=== PATIENT | female | born 1940 | race Caucasian/White ===

== ENCOUNTER 2018-08-06 12:52 | Inpatient (IN) | payer BC, MEDICARE ==
[~2018-08-06] VITALS: Ht 160 cm; Wt 54.6 kg
[2018-08-06 13:15] LABS: BASO # 0.1 x10^3/uL (0.0-0.2); BASO % 1 % (0-3); EOS # 0.2 x10^3/uL (0.0-0.7); EOS % 2 % (0-3); HEMATOCRIT 38.5 % (36.0-47.0); HEMOGLOBIN 12.6 g/dL (12.0-15.5); LYMPH # 3.8 x10^3/uL (1.0-4.8); LYMPH % 35 % (24-48); MEAN CORPUSCULAR HEMOGLOBIN 31 pg (25-35); MEAN CORPUSCULAR HGB CONC 33 g/dL (31-37); MEAN CORPUSCULAR VOLUME 94 fL (79-100); MONO # 0.9 x10^3/uL (0.0-1.1); MONO % 8 % (0-9); NEUT # 5.9 x10^3uL (1.8-7.7); NEUT % 55 % (31-73); PLATELET COUNT 236 x10^3/uL (140-400); RED BLOOD COUNT 4.08 x10^6/uL (3.50-5.40); RED CELL DISTRIBUTION WIDTH 13.7 % (11.5-14.5); WHITE BLOOD COUNT 10.8 x10^3/uL (4.0-11.0)
--- NOTE | 2018-08-06 13:17 | EKG ---
[address] [address] Test Date: 2018-08-06 Test Time: 13:14:41 Pat Name: EDILBERTO STARK Department: Room: Gender: F Trouble Locater: : 1940 Requested By: COURTNEY TRAORE Order Number: [id number] Reading MD: Jm Sebastian Measurements Intervals [place] Rate: 96 P: [place]: QRS: 72 QRSD: 86 T: 83 QT: 346 QTc: 438 Interpretive Statements SINUS RHYTHM QRS(T) CONTOUR ABNORMALITY CONSIDER ANTEROLATERAL MYOCARDIAL DAMAGE POSSIBLY ABNORMAL ECG Electronically Signed On 08-13-2018 9:58:33 [employer] by Jm Sebastian
[2018-08-06 13:30] LABS: ALBUMIN 3.6 g/dL (3.4-5.0); ALBUMIN/GLOBULIN RATIO 0.8 (1.0-1.7); CALCIUM 9.8 mg/dL (8.5-10.1); CREATININE 1.7 mg/dL (0.6-1.0); GFR 29.1; MAGNESIUM 2.3 mg/dL (1.8-2.4); POTASSIUM 4.4 mmol/L (3.5-5.1); TOTAL BILIRUBIN 0.3 mg/dL (0.2-1.0); TOTAL PROTEIN 7.9 g/dL (6.4-8.2)
[2018-08-06 13:30] LABS: BILIRUBIN,URINE NEG (NEG); CLARITY,URINE CLEAR; COLOR,URINE YELLOW; GLUCOSE,URINE NEG (NEG); NITRITE,URINE NEG (NEG); RBC,URINE 0 /HPF (0-2); UROBILINOGEN,URINE 0.2 mg/dL (0.2 mg/dL); WBC,URINE 0 /HPF (0-4)
[2018-08-06 13:31] LABS: BACTERIA,URINE 0 /HPF (0-FEW); SQUAMOUS EPITHELIAL CELL,UR OCC /LPF
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
[2018-08-06 14:33] VITALS: BP 134/84
[2018-08-06] MEDS ORDERED: ASPI-630 PO (15:51)
[2018-08-06] MEDS ORDERED: ASCO500T3 PO (15:51)
[2018-08-06 16:23] VITALS: BP 134/84
[2018-08-06] MEDS ORDERED: ORPH-16 PO (16:36)
[2018-08-06] MEDS ORDERED: QUET25TA5 PO (16:36)
[2018-08-06] MEDS ORDERED: CETI10TA22 PO (16:36)
[2018-08-06] MEDS ORDERED: OMEG1CAP38 PO (16:36)
[2018-08-06] MEDS ORDERED: GUAI600T47 PO (16:36)
[2018-08-06] MEDS ORDERED: POLY17PO5 PO (16:36)
[2018-08-06] MEDS ORDERED: CHOL10003 PO (16:36)
[2018-08-06] MEDS ORDERED: LEVO88TA4 PO (16:36)
[2018-08-06] MEDS ORDERED: TRAM50TA PO (16:36)
[2018-08-06] MEDS ORDERED: LACT1CAP19 PO (16:36)
[2018-08-06] MEDS ORDERED: FERR325T14 PO (16:36)
[2018-08-06] MEDS ORDERED: UBID100C PO (16:36)
[2018-08-06] MEDS ORDERED: MECL25TA3 PO (16:36)
[2018-08-06] MEDS ORDERED: BUSP5TAB PO (16:36)
[2018-08-06] MEDS ORDERED: FLUT12HF3 IH (16:51)
[2018-08-06] MEDS ORDERED: LITH300T3 PO (16:58)
[2018-08-06] MEDS ORDERED: IPRA30SP NS (16:58)
[2018-08-06] MEDS ORDERED: NICO1PAT25 TP (16:59)
[2018-08-06] MEDS ORDERED: traMADol 50 MG TABLET PO PRN (17:30)
[2018-08-06] MEDS ORDERED: MECLIZINE 12.5 MG TABLET. PO PRN (18:00)
[2018-08-06] MEDS ORDERED: busPIRone 5 MG TABLET. PO PRN (18:00)
[2018-08-06] MEDS ORDERED: ORPHENADRINE ER 100 MG TABLET.ER PO PRN (18:00)
[2018-08-06] MEDS ORDERED: MAG HYDROX/AL HYDROX/SIMETH 30 ML ORAL.SUSP PO PRN (18:15)
[2018-08-06] MEDS ORDERED: ACETAMINOPHEN 325 MG TABLET PO PRN (18:15)
[2018-08-06] MEDS ORDERED: MAGNESIUM HYDROXIDE 2,400 MG/30 ML ORAL.SUSP. PO PRN (18:15)
[2018-08-06] MEDS ORDERED: METHYL SALICYLATE/MENTHOL TOPICAL OINTMENT 29GM TUBE. TP PRN (18:15)
[2018-08-06] MEDS: BUDESONIDE 0.5 MG/2 ML NEBU NEB SCH (20:00)
[2018-08-06] MEDS: ALBUTEROL SULFATE 2.5 MG/3 ML NEBU. NEB SCH (20:00)
[2018-08-06] MEDS: QUEtiapine 25 MG TABLET. PO SCH ×3 (20:41→22:52)
[2018-08-06] MEDS: IPRATROPIUM BROMIDE 0.06% NASAL SPRAY 15ML BOTTLE NS SCH (20:41)
[2018-08-06] MEDS ORDERED: FLUTICASONE IH SCH (21:00)
[2018-08-06] MEDS ORDERED: SALMETEROL IH SCH (21:00)
[2018-08-07] MEDS: ALBUTEROL SULFATE 2.5 MG/3 ML NEBU. NEB SCH ×4 (05:32→20:00)
[2018-08-07 05:54] VITALS: BP 98/52
[2018-08-07] MEDS: LEVOTHYROXINE 88 MCG TABLET PO SCH ×2 (05:56→06:00)
[2018-08-07] MEDS: BUDESONIDE 0.5 MG/2 ML NEBU NEB SCH ×2 (08:00→20:00)
[2018-08-07] MEDS ORDERED: CETIRIZINE HCL 10 MG TABLET PO PRN (09:00)
[2018-08-07] MEDS ORDERED: NICOTINE 14MG PATCH. TD SCH (09:00)
[2018-08-07] MEDS: LITHIUM CARBONATE 300 MG TABLET PO SCH (10:12)
[2018-08-07] MEDS: NICOTINE 14MG PATCH. TD SCH (10:13)
[2018-08-07] MEDS: ASPIRIN 81 MG TAB.CHEW PO SCH (10:20)
[2018-08-07] MEDS: POLYETHYLENE GLYCOL 3350 17 GM PACKET. PO SCH (10:20)
[2018-08-07] MEDS: CHOLECALCIFEROL (VITAMIN D3) 1,000 UNIT TABLET PO SCH (10:20)
[2018-08-07] MEDS: LACTOBACILLUS RHAMNOSUS GG 1 CAPSULE. PO SCH (10:20)
[2018-08-07] MEDS: OMEGA-3 FATTY ACIDS/FISH OIL 1,000 MG CAPSULE. PO SCH (10:20)
[2018-08-07] MEDS: FERROUS SULFATE 325 MG TABLET. PO SCH (10:20)
[2018-08-07] MEDS: UBIDECARENONE 50 MG CAPSULE. PO SCH (10:20)
[2018-08-07] MEDS: ASCORBIC ACID 500 MG TABLET PO SCH (10:20)
[2018-08-07] MEDS: IPRATROPIUM BROMIDE 0.06% NASAL SPRAY 15ML BOTTLE NS SCH ×2 (10:20→20:37)
[2018-08-07] MEDS: GABAPENTIN 300 MG CAPSULE. PO SCH (20:36)
[2018-08-07] MEDS: QUEtiapine 25 MG TABLET. PO SCH (20:36)
[2018-08-07] MEDS: DIVALPROEX 125 MG CAP.SPRINK PO SCH (20:44)
[2018-08-07 21:00] VITALS: BP 114/57
[2018-08-07] MEDS ORDERED: DIVALPROEX SODIUM 250 MG TABLET.DR. PO SCH (21:00)
[2018-08-07] MEDS: LORazepam 0.5 MG TABLET PO PRN (22:50)
--- NOTE | 2018-08-08 01:48 | PSYEV ---
DATE OF SERVICE: 08/07/2018 PSYCHIATRIC EVALUATION REASON FOR ADMISSION: This 77-year-old female was admitted to unit 6 from home accompanied by her and son. The patient apparently is experiencing significant changes in her mental status for the past 2 weeks. The patient is also getting extremely paranoid, suspicious. She is complaining that her food is being poisoned, also religiously preoccupied, hypersexual, constantly talking, not able to follow directions, disinhibition. HISTORY OF PRESENT ILLNESS: The patient currently is not able to provide much information. Does not answer to questions. She has significant flight of ideas, racing thoughts, emotional lability and also feeling on top of the world. The patient has a long history of psychiatric illness, apparently diagnosed with bipolar disorder several years ago and apparently she had developed kidney disease being on long-term use of lithium. The patient is currently living with her , have been for almost 59 years. is concerned about her behavior change. 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 The patient apparently has been hospitalized at first time in 1993 for 2 months [facility]. At that time, she was diagnosed with bipolar disorder around age 53. The patient apparently followed with psychiatrist and stayed on the medication. The patient apparently denied of any substance abuse or alcohol. PAST MEDICAL HISTORY: The patient has a history of asthma, arthritis, chronic kidney disease stage 3, congestive heart failure, history of lung cancer, chronic back pain, COPD, hypothyroidism, osteoarthritis, fibromyalgia, history of herniated disk with a benign tumor. ALLERGIES: The patient is allergic to Haldol, ciprofloxacin, furosemide, levofloxacin, NSAIDs, Risperdal, Seldane, sulfonamides, tizanidine, prednisone and sulfamethoxazole. PSYCHOSOCIAL HISTORY: The patient is currently living with her . 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 The patient has a high school education. The patient apparently was very active like dancing, spend time with the family. The patient never had any legal problems. The patient has a daughter and grandchildren. CURRENT MEDICATIONS: Depakote 500 mg at night, gabapentin 600 mg at night, olanzapine 10 mg daily, lorazepam 0.25 mg q.i.d. p.r.n. and also olanzapine 2.5 mg q.2 hours p.r.n. The patient is also on lithium carbonate 300 mg daily, ferrous sulfate 325 mg daily, aspirin 81 mg daily, levothyroxine 88 mcg daily, Seroquel 25 mg at night. The patient was also on BuSpar 5 mg 4 times a day and that was discontinued. MENTAL STATUS EXAMINATION: The patient appeared to be of her stated age, thin built, hyperactive, restless, grandiose, delusional, wanting to dance. The patient is unable to sit still, talking continuously. Her speech is increased pressured, increased rate and rhythm. Affect and mood showed she is presenting with acute manic symptoms, not sleeping, increased energy pacing, restlessness, extreme mood swings, irritability, also delusional thinking, paranoid. The patient is also not able to hold a conversation because of her pressured thinking. The patient also has flight of ideas. The patient is not able to provide a chronological history at this time. The patient is oriented to surroundings. Her memory is not testable at this time. The patient denied of any suicidal or homicidal thoughts. The patient's judgment impaired. Insight limited. STRENGTH: Fairly in good health. Supportive family. WEAKNESSES: The patient apparently in the manic phase. Apparently, she is not taking responsibility for actions. [place] I: [place] Depressed with psychotic symptoms II:None III:Asthma, CKD,CHF, Cancer Lung, COPD, Neuropathy INITIAL TREATMENT PLAN: The patient will be involved in the program including individual therapy, group therapy, activity therapy. The patient will be started on Zyprexa 10 mg at night, 2.5 mg 2-4 hours p.r.n., not to exceed 10 mg daily. The patient will also have her lithium level checked. The patient will be observed closely. LENGTH OF STAY: Seven to ten days. CHRISTIAN WILLAMS MD DR: CHAD/caleb JOB#: [id number] / [id number] ANGELICA
--- NOTE | 2018-08-08 02:47 | CONS ---
DATE OF CONSULTATION: 08/07/2018 REASON FOR CONSULTATION: Medical management. HISTORY OF PRESENT ILLNESS: The patient is a 77-year-old female patient, who apparently came from home on account of being delusional, paranoid. She has flight of thoughts think she is being poisoned and phones are being tapped. She has increased religiosity and hypersexuality, all this in a background of bipolar disorder. According to nursing staff, she has been talking the whole day and apparently she said that she has not eaten for the last 4 days. PAST MEDICAL HISTORY: Significant for anemia, bronchial asthma, hypertensive heart disease, chronic kidney disease stage 3, congestive heart failure, lung cancer, chronic back pain, COPD, hyperlipidemia, hypertension, hypothyroid, lithium use, neuropathy, osteoarthritis, fibromyalgia, herniated disk. PAST SURGICAL HISTORY: Significant for left upper lobectomy for lung cancer. ALLERGIES: SHE IS ALLERGIC TO HALDOL, CIPROFLOXACIN, FUROSEMIDE, LEVOFLOXACIN, NONSTEROIDAL ANTIINFLAMMATORY MEDICATIONS, RISPERIDONE., SELDANE, SULFONAMIDE, TIZANIDINE, PREDNISONE, AND SULFAMETHOXAZOLE. MEDICATIONS: She is currently on following medications: She is on cetirizine 10 mg once a day, orphenadrine citrate 100 mg twice a day as needed, nicotine patch 14 mg topically daily, ferrous sulfate 325 mg once a day, omega-3 fatty acid 1 capsule daily, aspirin 81 mg once a day, tramadol 50 mg every 8 hours, quetiapine fumarate 25 mg at bedtime, buspirone 5 mg every 8 hours as needed, lithium carbonate 300 mg daily, Advair Diskus 230/221 mcg inhaler 1 inhalation twice a day, guaifenesin 600 mg twice a day, ipratropium bromide by nebulizer twice a day, polyethylene glycol 17 grams once a day, meclizine 25 mg 3 times a day as needed, lactobacillus rhamnosus for [place] 1 daily, levothyroxine sodium 88 mcg once a day, vitamin C, ascorbic acid 500 mg once a day, cholecalciferol for vitamin D3 1000 International Units once a day, Coenzyme Q10 100 mg once a day. FAMILY HISTORY: Unobtainable. SOCIAL HISTORY: Also is unobtainable. She apparently lives at home. I do not have any details. She apparently continued to smoke. PHYSICAL EXAMINATION: GENERAL: When I examined her, she was sitting comfortably in her chair, eating her dinner, in no apparent distress. She was definitely pale, but no jaundice, cyanosis or thyromegaly. No jugular venous distention. No limb edema. VITAL SIGNS: Her heart rate was 72, blood pressure was 98/52, temperature was 97.6, respiratory rate was 18 and oxygen saturation was 98%. HEAD, EYES, EARS, NOSE AND THROAT: Showed normocephalic, atraumatic. NECK: Supple. HEART: Showed normal first and second heart sounds with no gallop, rub or murmur. CHEST: Clear to auscultation. No crepitation or rhonchi. ABDOMEN: Distended, soft, nontender. No guarding or rigidity. No organomegaly. All hernial orifices intact. Bowel sounds normal. NEUROLOGIC: She is in a manic stage; however, all her cranial nerves are intact. EXTREMITIES: She moves extremities without difficulty. She ambulates without assistance or assistive devices. LABORATORY WORK: Showed a white cell count of 10,800, hemoglobin 12, hematocrit 38, MCV 94 and platelet count 236,000. Her chemistry showed a serum sodium 139, potassium 4.4, chloride 102, bicarbonate 23, anion gap of 14, BUN 35, creatinine 1.7. Her estimated GFR was 29 mL per minute. Her glucose 121, calcium was 9.8, magnesium 2.3. Total bilirubin, AST, ALT, alkaline phosphatase were normal. Total protein was 7.9, albumin was 2.6. Urinalysis was essentially unremarkable. Toxicology screen showed the lithium level was 0 and her treponema pallidum antibody was nonreactive. IMPRESSION: In summary, this is a 77-year-old female patient, who apparently lives at home and who was admitted on account of being delusional, paranoid with flight of thoughts think she is being poisoned and phones are being tapped. She has increased religiosity and hypersexuality, all this in a background of bipolar disorder. She is here for inpatient psychiatric stabilization. Medically, she has numerous medical problems including chronic kidney disease, chronic obstructive pulmonary disease, hypertension, hyperlipidemia, has osteoarthritis, osteoporosis, hypothyroidism. She seems to be all in all stable. All her vital signs are within acceptable range. Her lab work also within acceptable range except her kidney function. I will definitely continue all her current medication for the time being and we will review all her labs that still pending and make any necessary recommendation. Thank you, Dr. Newsome for allowing me to participate in the care of this patient. JOSE ALEJANDRO OWUSU MD DR: DEVON/caleb JOB#: [id number] / [id number]
[2018-08-08] MEDS: ALBUTEROL SULFATE 2.5 MG/3 ML NEBU. NEB SCH ×4 (05:44→20:41)
[2018-08-08 05:55] VITALS: BP 103/63
[2018-08-08] MEDS: LEVOTHYROXINE 88 MCG TABLET PO SCH (06:15)
[2018-08-08] MEDS: ASPIRIN 81 MG TAB.CHEW PO SCH ×2 (08:00→08:48)
[2018-08-08] MEDS: CHOLECALCIFEROL (VITAMIN D3) 1,000 UNIT TABLET PO SCH ×2 (08:49→09:00)
[2018-08-08] MEDS: LACTOBACILLUS RHAMNOSUS GG 1 CAPSULE. PO SCH ×2 (08:49→09:00)
[2018-08-08] MEDS: FERROUS SULFATE 325 MG TABLET. PO SCH ×2 (08:49→09:00)
[2018-08-08] MEDS: ASCORBIC ACID 500 MG TABLET PO SCH ×2 (08:49→09:00)
[2018-08-08] MEDS: LITHIUM CARBONATE 300 MG TABLET PO SCH ×2 (08:49→11:46)
[2018-08-08] MEDS: UBIDECARENONE 50 MG CAPSULE. PO SCH ×2 (08:49→09:00)
[2018-08-08] MEDS: OMEGA-3 FATTY ACIDS/FISH OIL 1,000 MG CAPSULE. PO SCH ×2 (08:50→09:00)
[2018-08-08] MEDS: POLYETHYLENE GLYCOL 3350 17 GM PACKET. PO SCH (08:51)
[2018-08-08] MEDS: NICOTINE 14MG PATCH. TD SCH (08:51)
[2018-08-08] MEDS: IPRATROPIUM BROMIDE 0.06% NASAL SPRAY 15ML BOTTLE NS SCH ×2 (09:00→20:11)
[2018-08-08] MEDS: LORazepam 0.5 MG TABLET PO PRN ×2 (09:02→11:46)
[2018-08-08] MEDS: BUDESONIDE 0.5 MG/2 ML NEBU NEB SCH ×2 (11:03→20:41)
[2018-08-08] MEDS: risperiDONE 1 MG TABLET. PO SCH ×3 (11:30→20:10)
[2018-08-08 16:36] VITALS: BP 112/69
--- NOTE | 2018-08-08 18:40 | PN ---
DATE: 08/08/2018 SUBJECTIVE: The patient was seen today, met with the staff, chart reviewed. The patient apparently sedated at this time. Staff reports any major problems today. Apparently, the patient's reported to the staff that she responded well to Risperdal in the past, though it is listed as an allergy. The patient has been on lithium for small doses. Apparently, she did not have much lithium in her system when she came in. wanted her to be on lithium and she has been on for several years. is aware the patient has chronic kidney disease stage 3. The patient apparently had a CT scan recently that was within normal range. The patient is still having racing thoughts when she is awake. The patient is having difficulty controlling her emotions, disorganized thinking, racing thoughts, flight of ideas and also grandiosity. The patient's lab reviewed and not having any physical complaints at this time. OBSERVATION: VITAL SIGNS: Temperature 96.8, blood pressure 103/63, pulse 68, respiration 18, O2 sat 93%. Slept about 3 hours last night. MEDICATIONS: The patient will continue on her medication, Depakote 500 mg at night. The patient also started on Risperdal 1 mg b.i.d. p.o., gabapentin 600 mg at night, lithium carbonate 300 mg daily, Seroquel 25 mg b.i.d. LABORATORY DATA: The patient's lab reviewed. BUN was 35 and creatinine 1.7. ASSESSMENT: Bipolar disorder, manic with psychotic features. PLAN: Continue with the current treatment. CHRISTIAN WILLAMS MD DR: CHAD/caleb JOB#: [id number] / [id number]
[2018-08-08] MEDS: QUEtiapine 25 MG TABLET. PO SCH (20:10)
[2018-08-08] MEDS: DIVALPROEX 125 MG CAP.SPRINK PO SCH (20:10)
[2018-08-08] MEDS: GABAPENTIN 300 MG CAPSULE. PO SCH (20:11)
[2018-08-09 03:13] LABS: HEMOGLOBIN A1C 5.6 % (4.8-5.6)
[2018-08-09] MEDS: ALBUTEROL SULFATE 2.5 MG/3 ML NEBU. NEB SCH ×4 (05:24→21:38)
[2018-08-09] MEDS: LEVOTHYROXINE 88 MCG TABLET PO SCH (05:40)
[2018-08-09 06:30] VITALS: BP 134/66
[2018-08-09] MEDS: BUDESONIDE 0.5 MG/2 ML NEBU NEB SCH ×2 (08:00→21:38)
[2018-08-09] MEDS: OMEGA-3 FATTY ACIDS/FISH OIL 1,000 MG CAPSULE. PO SCH (09:00)
[2018-08-09] MEDS: LACTOBACILLUS RHAMNOSUS GG 1 CAPSULE. PO SCH ×2 (11:07→12:15)
[2018-08-09] MEDS: UBIDECARENONE 50 MG CAPSULE. PO SCH ×2 (11:07→12:15)
[2018-08-09] MEDS: LITHIUM CARBONATE 300 MG TABLET PO SCH (11:07)
[2018-08-09] MEDS: NICOTINE 14MG PATCH. TD SCH (11:07)
[2018-08-09] MEDS: CHOLECALCIFEROL (VITAMIN D3) 1,000 UNIT TABLET PO SCH ×2 (11:07→12:15)
[2018-08-09] MEDS: ASCORBIC ACID 500 MG TABLET PO SCH ×2 (11:07→12:15)
[2018-08-09] MEDS: POLYETHYLENE GLYCOL 3350 17 GM PACKET. PO SCH (11:07)
[2018-08-09] MEDS: ASPIRIN 81 MG TAB.CHEW PO SCH ×2 (11:08→12:15)
[2018-08-09] MEDS: FERROUS SULFATE 325 MG TABLET. PO SCH ×2 (11:08→12:15)
[2018-08-09] MEDS: risperiDONE 1 MG TABLET. PO SCH ×2 (11:08→20:27)
[2018-08-09] MEDS: IPRATROPIUM BROMIDE 0.06% NASAL SPRAY 15ML BOTTLE NS SCH ×2 (11:09→20:28)
[2018-08-09 16:01] VITALS: BP 104/54
[2018-08-09] MEDS: QUEtiapine 25 MG TABLET. PO SCH (20:27)
[2018-08-09] MEDS: GABAPENTIN 300 MG CAPSULE. PO SCH (20:27)
[2018-08-09] MEDS: DIVALPROEX 125 MG CAP.SPRINK PO SCH (20:27)
--- NOTE | 2018-08-09 22:23 | PN ---
DATE: 08/09/2018 SUBJECTIVE: The patient was seen today, met with the staff, chart reviewed. The patient's behavior remains the same, withdrawn, very limited interaction, worse eye contact. The patient is confused and had a lot of anxiety being around people, gets confused when she was asked questions about what is going on with her. The patient's medical record from the previous treatments, mostly outpatient treatment was reviewed. The patient was seen at [facility] in the past. The patient has been on several medications. She has been on Seroquel, BuSpar. The patient has been treated for bipolar disorder, most recent episode hypomanic. Other information included her was an alcoholic. The patient denied of any alcohol abuse. She smoked for many years up to 2 packs per day. The patient's first episode was in 1993. The patient apparently had a mini stroke in 1980. The patient apparently had significant mood swings. The patient's enjoyed lives. 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 The patient also had obsessive-compulsive behaviors in the past and has a diagnosis of OCD. OBSERVATION: VITAL SIGNS: Temperature 97.8, blood pressure 104/54, pulse 76, respirations 20. Slept about 6 hours last night. The patient apparently not having any side effects to the medications. The patient's medication reviewed. Her wants her to be on lithium. The patient's lab reviewed. ASSESSMENT: Bipolar disorder, manic with psychotic features. PLAN: Continue with the treatment. The patient has been withdrawn most of the time, significant change from the time of admission. She is no longer manic. She was confused, isolative, irritability, hyperactive and restless, but she is not communicating well at this time. CHRISTIAN WILLAMS MD DR: CHAD/caleb JOB#: [id number] / [id number]
[2018-08-10] MEDS: ALBUTEROL SULFATE 2.5 MG/3 ML NEBU. NEB SCH ×4 (05:10→20:00)
[2018-08-10 05:13] VITALS: BP 99/68
[2018-08-10] MEDS: LEVOTHYROXINE 88 MCG TABLET PO SCH (05:25)
[2018-08-10] MEDS: BUDESONIDE 0.5 MG/2 ML NEBU NEB SCH ×2 (08:00→20:00)
[2018-08-10] MEDS: POLYETHYLENE GLYCOL 3350 17 GM PACKET. PO SCH (10:18)
[2018-08-10] MEDS: ASCORBIC ACID 500 MG TABLET PO SCH (10:18)
[2018-08-10] MEDS: ASPIRIN 81 MG TAB.CHEW PO SCH (10:18)
[2018-08-10] MEDS: NICOTINE 14MG PATCH. TD SCH (10:18)
[2018-08-10] MEDS: CHOLECALCIFEROL (VITAMIN D3) 1,000 UNIT TABLET PO SCH (10:18)
[2018-08-10] MEDS: FERROUS SULFATE 325 MG TABLET. PO SCH (10:18)
[2018-08-10] MEDS: UBIDECARENONE 50 MG CAPSULE. PO SCH (10:18)
[2018-08-10] MEDS: LACTOBACILLUS RHAMNOSUS GG 1 CAPSULE. PO SCH (10:18)
[2018-08-10] MEDS: OMEGA-3 FATTY ACIDS/FISH OIL 1,000 MG CAPSULE. PO SCH (10:18)
[2018-08-10] MEDS: LITHIUM CARBONATE 300 MG TABLET PO SCH (10:19)
[2018-08-10] MEDS: risperiDONE 1 MG TABLET. PO SCH ×2 (10:19→19:41)
[2018-08-10] MEDS: IPRATROPIUM BROMIDE 0.06% NASAL SPRAY 15ML BOTTLE NS SCH ×2 (10:20→19:42)
[2018-08-10 11:13] LABS: BASO % 0 % (0-3); EOS # 0.2 x10^3/uL (0.0-0.7); EOS % 2 % (0-3); HEMATOCRIT 35.3 % (36.0-47.0); HEMOGLOBIN 11.1 g/dL (12.0-15.5); LYMPH # 1.5 x10^3/uL (1.0-4.8); LYMPH % 12 % (24-48); MEAN CORPUSCULAR HEMOGLOBIN 30 pg (25-35); MEAN CORPUSCULAR HGB CONC 32 g/dL (31-37); MEAN CORPUSCULAR VOLUME 96 fL (79-100); MONO % 8 % (0-9); NEUT # 9.4 x10^3uL (1.8-7.7); NEUT % 77 % (31-73); PLATELET COUNT 158 x10^3/uL (140-400); RED BLOOD COUNT 3.67 x10^6/uL (3.50-5.40); RED CELL DISTRIBUTION WIDTH 14.3 % (11.5-14.5); WHITE BLOOD COUNT 12.2 x10^3/uL (4.0-11.0)
[2018-08-10 11:22] LABS: ALBUMIN 2.8 g/dL (3.4-5.0); ALBUMIN/GLOBULIN RATIO 0.7 (1.0-1.7); ALK PHOS 70 U/L (46-116); ALT (SGPT) 29 U/L (14-59); ANION GAP 11 (6-14); AST (SGOT) 20 U/L (15-37); BLOOD UREA NITROGEN 50 mg/dL (7-20); BUN/CREATININE RATIO 31 (6-20); CALCIUM 9.4 mg/dL (8.5-10.1); CARBON DIOXIDE 28 mmol/L (21-32); CHLORIDE 107 mmol/L (98-107); CREATININE 1.6 mg/dL (0.6-1.0); GFR 31.3; GLUCOSE 158 mg/dL (70-99); POTASSIUM 4.6 mmol/L (3.5-5.1); SODIUM 146 mmol/L (136-145); TOTAL BILIRUBIN 0.3 mg/dL (0.2-1.0); TOTAL PROTEIN 6.8 g/dL (6.4-8.2); VAL ACID 61 mcg/mL (50-100)
[2018-08-10 12:40] LABS: % BANDS 1 % (0-9); % EOS 2 % (0-5); % LYMPHS 13 % (24-48); % MONOS 3 % (0-10); % SEGS 80 % (35-66)
[2018-08-10 12:41] LABS: PLT ESTIMATE ADEQUATE (ADEQUATE)
[2018-08-10 16:07] VITALS: BP 95/70
[2018-08-10] MEDS: DIVALPROEX 125 MG CAP.SPRINK PO SCH (19:40)
[2018-08-10] MEDS: QUEtiapine 25 MG TABLET. PO SCH (19:41)
[2018-08-10] MEDS: GABAPENTIN 300 MG CAPSULE. PO SCH (19:41)
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
[2018-08-11] MEDS: ALBUTEROL SULFATE 2.5 MG/3 ML NEBU. NEB SCH ×4 (05:00→21:54)
[2018-08-11 05:46] VITALS: BP 91/55
[2018-08-11] MEDS: LEVOTHYROXINE 88 MCG TABLET PO SCH (05:51)
[2018-08-11] MEDS: BUDESONIDE 0.5 MG/2 ML NEBU NEB SCH ×2 (08:00→21:54)
[2018-08-11] MEDS: UBIDECARENONE 50 MG CAPSULE. PO SCH (08:03)
[2018-08-11] MEDS: ASCORBIC ACID 500 MG TABLET PO SCH (08:03)
[2018-08-11] MEDS: FERROUS SULFATE 325 MG TABLET. PO SCH (08:03)
[2018-08-11] MEDS: ASPIRIN 81 MG TAB.CHEW PO SCH (08:03)
[2018-08-11] MEDS: LACTOBACILLUS RHAMNOSUS GG 1 CAPSULE. PO SCH ×2 (08:03→20:18)
[2018-08-11] MEDS: OMEGA-3 FATTY ACIDS/FISH OIL 1,000 MG CAPSULE. PO SCH (08:03)
[2018-08-11] MEDS: LITHIUM CARBONATE 300 MG TABLET PO SCH (08:04)
[2018-08-11] MEDS: risperiDONE 1 MG TABLET. PO SCH ×2 (08:04→20:20)
[2018-08-11] MEDS: POLYETHYLENE GLYCOL 3350 17 GM PACKET. PO SCH (08:04)
[2018-08-11] MEDS: IPRATROPIUM BROMIDE 0.06% NASAL SPRAY 15ML BOTTLE NS SCH ×2 (08:04→20:21)
[2018-08-11] MEDS: CHOLECALCIFEROL (VITAMIN D3) 1,000 UNIT TABLET PO SCH (08:04)
[2018-08-11] MEDS: NICOTINE 14MG PATCH. TD SCH (08:04)
[2018-08-11 08:48] LABS: % ATYL 1 % (0-0)
--- NOTE | 2018-08-11 16:00 | PN ---
DATE: 08/11/2018 SUBJECTIVE: The patient was seen today, met with the staff, chart reviewed. The patient's behavior has improved. The patient is having difficulty with her gait. The patient still has some pressure of speech and also some speech impediment. The patient is also exhibiting some confusion. Still manic behaviors, but the patient seems to be settled down. Staff reports no major problems. OBSERVATION: VITAL SIGNS: Temperature 96.5, blood pressure 91/55, pulse 66, respirations 18, and O2 sat 91%. Slept about 4-1/2 hours last night. The patient's appetite is fair. MEDICATIONS: Reviewed. Also, lab reviewed. ASSESSMENT: 1. Bipolar disorder, manic, psychotic symptoms. 2. Cognitive disorder, mild. PLAN: To continue with the treatment. CHRISTIAN WILLAMS MD DR: CHAD/caleb JOB#: [id number] / [id number]
[2018-08-11 17:15] VITALS: BP 91/59
[2018-08-11] MEDS: GABAPENTIN 300 MG CAPSULE. PO SCH (20:18)
[2018-08-11] MEDS: QUEtiapine 25 MG TABLET. PO SCH (20:20)
[2018-08-11] MEDS: DIVALPROEX 125 MG CAP.SPRINK PO SCH (20:20)
[2018-08-12] MEDS: ALBUTEROL SULFATE 2.5 MG/3 ML NEBU. NEB SCH ×4 (04:52→20:26)
[2018-08-12] MEDS: LEVOTHYROXINE 88 MCG TABLET PO SCH (04:57)
[2018-08-12 05:42] VITALS: BP 115/62
[2018-08-12] MEDS: OMEGA-3 FATTY ACIDS/FISH OIL 1,000 MG CAPSULE. PO SCH (07:45)
[2018-08-12] MEDS: risperiDONE 1 MG TABLET. PO SCH ×2 (07:46→19:43)
[2018-08-12] MEDS: CHOLECALCIFEROL (VITAMIN D3) 1,000 UNIT TABLET PO SCH (07:46)
[2018-08-12] MEDS: UBIDECARENONE 50 MG CAPSULE. PO SCH (07:46)
[2018-08-12] MEDS: ASPIRIN 81 MG TAB.CHEW PO SCH (07:46)
[2018-08-12] MEDS: LITHIUM CARBONATE 300 MG TABLET PO SCH (07:46)
[2018-08-12] MEDS: FERROUS SULFATE 325 MG TABLET. PO SCH (07:46)
[2018-08-12] MEDS: ASCORBIC ACID 500 MG TABLET PO SCH (07:46)
[2018-08-12] MEDS: NICOTINE 14MG PATCH. TD SCH (07:47)
[2018-08-12] MEDS: POLYETHYLENE GLYCOL 3350 17 GM PACKET. PO SCH (07:47)
[2018-08-12] MEDS: IPRATROPIUM BROMIDE 0.06% NASAL SPRAY 15ML BOTTLE NS SCH ×2 (07:48→19:43)
[2018-08-12] MEDS: BUDESONIDE 0.5 MG/2 ML NEBU NEB SCH ×2 (11:33→20:27)
[2018-08-12 15:52] VITALS: BP 101/61
[2018-08-12] MEDS: GABAPENTIN 300 MG CAPSULE. PO SCH (19:43)
[2018-08-12] MEDS: QUEtiapine 25 MG TABLET. PO SCH (19:43)
[2018-08-12] MEDS: DIVALPROEX 125 MG CAP.SPRINK PO SCH (19:43)
--- NOTE | 2018-08-12 19:55 | PDOC ---
Exam Note: Alessandro Note: Please also refer to the separate dictated note~for this date of service dictated separately.~Patient seen individually. Discussed the patient with Nursing staff reviewed the chart.~Reviewed interim history and current functioning. Reviewed vital signs,~Labs/ Radiology~and current medications noted below. Continue current treatment with the changes noted in the dictated addendum note Assessment: Vital Signs: Vital Signs Date Time Temp Pulse Resp B/P (MAP) Pulse Ox O2 Delivery O2 Flow Rate FiO2 08/12/18 16:51 100 Room Air 08/12/18 15:52 97.2 81 18 101/61 (74) I&O Intake and Output 08/12/18 07:00 Intake Total 560 ml Balance 560 ml Intake Oral 560 ml # Bowel Movements 1 Current Medications: Meds: Current Medications Ascorbic Acid (Vitamin C) 500 mg DAILY PO Last administered on 08/12/18at 07:46 ; Start 08/07/18 at 09:00 Vitamin D (Vitamin D3) 1,000 unit DAILY PO Last administered on 08/12/18at 07: 46; Start 08/07/18 at 09:00 Ferrous Sulfate (Feosol) 325 mg DAILY PO Last administered on 08/12/18at 07:46 ; Start 08/07/18 at 09:00 Guaifenesin (Mucinex Er) 600 mg PRN BID PRN PO COUGH; Start 08/06/18 at 17:30 Lactobacillus Rhamnosus (Culturelle) 1 cap DAILY PO Last administered on at 20:18; Start 08/07/18 at 09:00 Levothyroxine Sodium (Synthroid) 88 mcg DAILY06 PO Last administered on at 04:57; Start 08/07/18 at 06:00 Tramadol HCl (Ultram) 50 mg PRN Q8HRS PRN PO PAIN; Start 08/06/18 at 17:30 Aspirin (Children'S Aspirin) 81 mg DAILYWBKFT PO Last administered on at 07:46; Start 08/07/18 at 08:00 Buspirone HCl (Buspar) 5 mg PRN Q8HRS PRN PO ANXIETY / AGITATION Last administered on 08/07/18at 07:58; Start 08/06/18 at 18:00; Stop 08/07/18 at 17 :06; Status DC Cetirizine HCl (ZyrTEC) 10 mg PRN DAILY PRN PO ALLERGIES; Start 08/07/18 at 09 :00 Non-Formulary Medication (Fluticasone/ Salmeterol (Advair Hfa 230-21 Mcg Inhaler )) 12 gm BID IH ; Start 08/06/18 at 21:00; Status UNV Ipratropium [place] (Atrovent Nasal) 2 spray BID NS Last administered on 19:43; Start 08/06/18 at 21:00 [place] Carbonate 300 mg DAILY PO Last administered on 08/12/18at 07:46; Start 08/07/18 at 09:00 Meclizine HCl (Antivert) 12.5 mg PRN TID PRN PO DIZZINESS; Start 08/06/18 at 18:00 Nicotine (Nicoderm Cq 14mg) 1 patch DAILY TD Last administered on 08/12/18at 07 :47; Start 08/07/18 at 09:00 Fish Oil (Fish Oil) 1,000 mg DAILY PO Last administered on 08/12/18at 07:45; Start 08/07/18 at 09:00 Orphenadrine Citrate (Norflex Er) 100 mg PRN BID PRN PO MUSCLE SPASMS; Start 08/06/18 at 18:00 Polyethylene Glycol (miraLAX) 17 gm DAILY PO Last administered on 08/12/18at 07 :47; Start 08/07/18 at 09:00 Quetiapine Fumarate (SEROquel) 25 mg QHS PO Last administered on 08/12/18at 19: 43; Start 08/06/18 at 21:00 Coenzyme Q10 (Coenzyme Q10) 100 mg DAILY PO Last administered on 08/12/18at 07: 46; Start 08/07/18 at 09:00 Albuterol Sulfate (Ventolin) 2.5 mg RTQID NEB Last administered on 08/12/18at 16:51; Start 08/06/18 at 20:00 Budesonide (Pulmicort) 0.5 mg RTBID NEB Last administered on 08/12/18at 11:33; Start 08/06/18 at 20:00 Acetaminophen (Tylenol) 650 mg PRN Q6HRS PRN PO PAIN / TEMP; Start 08/06/18 at 18:15 Multi-Ingredient Ointment (Analgesic [place]) 1 humberto PRN QID PRN TP MUSCLE PAIN; Start 08/06/18 at 18:15 Al Hydroxide/Mg Hydroxide (Mylanta Plus Xs) 15 ml PRN AFTMEALHC PRN PO DYSPEPSIA; Start 08/06/18 at 18:15 Magnesium Hydroxide (Milk Of Magnesia) 2,400 mg PRN QHS PRN PO CONSTIPATION Last administered on 08/10/18at 17:48; Start 08/06/18 at 18:15 Nicotine (Nicoderm Cq 14mg) 1 patch DAILY TD ; Start 08/07/18 at 09:00; Status UNV Olanzapine (ZyPREXA ZYDIS) 2.5 mg PRN Q2HR PRN PO ANXIETY / AGITATION Last administered on 08/08/18at 11:46; Start 08/07/18 at 09:30 Gabapentin (Neurontin) 600 mg QHS PO Last administered on 08/12/18at 19:43; Start 08/07/18 at 21:00 Divalproex Sodium (Depakote) 500 mg QHS PO Last administered on 08/07/18at 20: 36; Start 08/07/18 at 21:00; Stop 08/07/18 at 21:00; Status DC Olanzapine (ZyPREXA ZYDIS) 10 mg ONCE ONCE PO Last administered on 08/07/18at 17:43; Start 08/07/18 at 17:30; Stop 08/07/18 at 17:31; Status DC Lorazepam (Ativan) 0.25 mg PRN QID PRN PO ANXIETY / AGITATION Last administered on 08/08/18at 11:46; Start 08/07/18 at 17:00 Divalproex Sodium (Depakote Sprinkles) 500 mg QHS PO Last administered on 08/12at 19:43; Start 08/07/18 at 21:00 Risperidone (RisperDAL) 1 mg BID PO Last administered on 08/12/18at 19:43; Start 08/08/18 at 11:30 Active Scripts Active Reported NICODERM CQ 14mg (Nicotine) 1 Each Patch.td24 1 Patch TP DAILY [place] Carbonate 300 Mg Tablet 300 Mg PO DAILY Ipratropium [place] 30 Ml [place] 30 Ml NS BID Advair Hfa 230-21 Mcg Inhaler (Fluticasone/Salmeterol) 12 Gm Hfa.aer.ad 12 Gm IH BID Seroquel (Quetiapine Fumarate) 25 Mg Tablet 25 Mg PO QHS Tramadol Hcl (Tramadol HCl) 50 Mg Tablet 50 Mg PO PRN Q8HRS PRN Miralax (Polyethylene Glycol 3350) 17 Gm Powd.pack 1 Packet PO DAILY Orphenadrine Citrate 100 Mg Tablet.er 1 Tab PO PRN BID PRN Meclizine Hcl 25 Mg Tablet 1 Tab PO TID PRN Levothyroxine Sodium 88 Mcg Tablet 1 Tab PO DAILY Culturelle (Lactobacillus Rhamnosus Gg) 1 Each Cap.sprink 1 Each PO DAILY Mucinex (Guaifenesin) 600 Mg Tablet.er 1 Tab PO PRN BID PRN [place] 3 Fish Oil Softgel ([place]-3 Fatty Acids/Fish Oil) 1 Each Capsule.dr 1 Each PO DAILY PRN Ferrous Sulfate 325 Mg Tablet 1 Tab PO DAILY Coenzyme Q10 (Ubidecarenone) 100 Mg Capsule 100 Mg PO DAILY Vitamin D3 (Cholecalciferol (Vitamin D3)) 1,000 Unit Tablet 1 Tab PO DAILY Zyrtec (Cetirizine Hcl) 10 Mg Tablet 1 Tab PO PRN DAILY PRN Buspirone Hcl 5 Mg Tablet 1 Tab PO PRN Q8HRS PRN Aspirin 81 Mg Tab.chew 81 Mg PO DAILY Ascorbic Acid 500 Mg Tablet 500 Mg PO DAILY I have reviewed the current psychotropics carefully including drug interactions. Risk benefit ratio favors no change other than as noted in my dictated progress note. Diagnosis: Problems: (1) Paranoia (2) Renal insufficiency (3) Agitation (4) Medical clearance for psychiatric admission ZOFIA INFANTE MD Aug 12, 2018 19:55
[2018-08-13] MEDS: LEVOTHYROXINE 88 MCG TABLET PO SCH (05:13)
[2018-08-13] MEDS: ALBUTEROL SULFATE 2.5 MG/3 ML NEBU. NEB SCH ×4 (05:29→20:29)
[2018-08-13 06:06] VITALS: BP 119/60
[2018-08-13] MEDS: POLYETHYLENE GLYCOL 3350 17 GM PACKET. PO SCH (08:07)
[2018-08-13] MEDS: NICOTINE 14MG PATCH. TD SCH ×2 (08:07→08:51)
[2018-08-13] MEDS: UBIDECARENONE 50 MG CAPSULE. PO SCH (08:08)
[2018-08-13] MEDS: ASPIRIN 81 MG TAB.CHEW PO SCH (08:08)
[2018-08-13] MEDS: ASCORBIC ACID 500 MG TABLET PO SCH (08:08)
[2018-08-13] MEDS: LITHIUM CARBONATE 300 MG TABLET PO SCH (08:08)
[2018-08-13] MEDS: CHOLECALCIFEROL (VITAMIN D3) 1,000 UNIT TABLET PO SCH (08:08)
[2018-08-13] MEDS: LACTOBACILLUS RHAMNOSUS GG 1 CAPSULE. PO SCH (08:08)
[2018-08-13] MEDS: FERROUS SULFATE 325 MG TABLET. PO SCH (08:08)
[2018-08-13] MEDS: OMEGA-3 FATTY ACIDS/FISH OIL 1,000 MG CAPSULE. PO SCH (08:08)
[2018-08-13] MEDS: risperiDONE 1 MG TABLET. PO SCH ×2 (08:08→20:41)
[2018-08-13] MEDS: IPRATROPIUM BROMIDE 0.06% NASAL SPRAY 15ML BOTTLE NS SCH ×2 (09:30→20:43)
[2018-08-13] MEDS: BUDESONIDE 0.5 MG/2 ML NEBU NEB SCH ×2 (11:07→20:29)
[2018-08-13 16:24] VITALS: BP 105/50
--- NOTE | 2018-08-13 19:43 | PDOC ---
Exam Note: Alessandro Note: Please also refer to the separate dictated note~for this date of service dictated separately.~Patient seen individually. Discussed the patient with Nursing staff reviewed the chart.~Reviewed interim history and current functioning. Reviewed vital signs,~Labs/ Radiology~and current medications noted below. Continue current treatment with the changes noted in the dictated addendum note Assessment: Vital Signs: Vital Signs Date Time Temp Pulse Resp B/P (MAP) Pulse Ox O2 Delivery O2 Flow Rate FiO2 08/13/18 16:31 96 Room Air 08/13/18 16:24 97.8 71 18 105/50 (68) I&O Intake and Output 08/13/18 07:00 Intake Total 1060 ml Balance 1060 ml Intake Oral 1060 ml # Voids 1 # Bowel Movements 2 Current Medications: Meds: Current Medications Ascorbic Acid (Vitamin C) 500 mg DAILY PO Last administered on 08/13/18at 08:08 ; Start 08/07/18 at 09:00 Vitamin D (Vitamin D3) 1,000 unit DAILY PO Last administered on 08/13/18at 08: 08; Start 08/07/18 at 09:00 Ferrous Sulfate (Feosol) 325 mg DAILY PO Last administered on 08/13/18at 08:08 ; Start 08/07/18 at 09:00 Guaifenesin (Mucinex Er) 600 mg PRN BID PRN PO COUGH; Start 08/06/18 at 17:30 Lactobacillus Rhamnosus (Culturelle) 1 cap DAILY PO Last administered on at 08:08; Start 08/07/18 at 09:00 Levothyroxine Sodium (Synthroid) 88 mcg DAILY06 PO Last administered on at 05:13; Start 08/07/18 at 06:00 Tramadol HCl (Ultram) 50 mg PRN Q8HRS PRN PO PAIN; Start 08/06/18 at 17:30 Aspirin (Children'S Aspirin) 81 mg DAILYWBKFT PO Last administered on at 08:08; Start 08/07/18 at 08:00 Buspirone HCl (Buspar) 5 mg PRN Q8HRS PRN PO ANXIETY / AGITATION Last administered on 08/07/18at 07:58; Start 08/06/18 at 18:00; Stop 08/07/18 at 17 :06; Status DC Cetirizine HCl (ZyrTEC) 10 mg PRN DAILY PRN PO ALLERGIES; Start 08/07/18 at 09 :00 Non-Formulary Medication (Fluticasone/ Salmeterol (Advair Hfa 230-21 Mcg Inhaler )) 12 gm BID IH ; Start 08/06/18 at 21:00; Status UNV Ipratropium [place] (Atrovent Nasal) 2 spray BID NS Last administered on at 09:30; Start 08/06/18 at 21:00 [place] Carbonate 300 mg DAILY PO Last administered on 08/13/18at 08:08; Start 08/07/18 at 09:00; Stop 08/13/18 at 16:51; Status DC Meclizine HCl (Antivert) 12.5 mg PRN TID PRN PO DIZZINESS; Start 08/06/18 at 18:00 Nicotine (Nicoderm Cq 14mg) 1 patch DAILY TD Last administered on 08/12/18at 07 :47; Start 08/07/18 at 09:00; Stop 08/13/18 at 13:39; Status DC Fish Oil (Fish Oil) 1,000 mg DAILY PO Last administered on 08/13/18at 08:08; Start 08/07/18 at 09:00 Orphenadrine Citrate (Norflex Er) 100 mg PRN BID PRN PO MUSCLE SPASMS; Start 08/06/18 at 18:00 Polyethylene Glycol (miraLAX) 17 gm DAILY PO Last administered on 08/13/18at 08 :07; Start 08/07/18 at 09:00 Quetiapine Fumarate (SEROquel) 25 mg QHS PO Last administered on 08/12/18at 19: 43; Start 08/06/18 at 21:00 Coenzyme Q10 (Coenzyme Q10) 100 mg DAILY PO Last administered on 08/13/18at 08: 08; Start 08/07/18 at 09:00 Albuterol Sulfate (Ventolin) 2.5 mg RTQID NEB Last administered on 08/13/18at 16:31; Start 08/06/18 at 20:00 Budesonide (Pulmicort) 0.5 mg RTBID NEB Last administered on 08/13/18at 11:07; Start 08/06/18 at 20:00 Acetaminophen (Tylenol) 650 mg PRN Q6HRS PRN PO PAIN / TEMP Last administered on 08/13/18at 05:13; Start 08/06/18 at 18:15 Multi-Ingredient Ointment (Analgesic [place]) 1 humberto PRN QID PRN TP MUSCLE PAIN; Start 08/06/18 at 18:15 Al Hydroxide/Mg Hydroxide (Mylanta Plus Xs) 15 ml PRN AFTMEALHC PRN PO DYSPEPSIA; Start 08/06/18 at 18:15 Magnesium Hydroxide (Milk Of Magnesia) 2,400 mg PRN QHS PRN PO CONSTIPATION Last administered on 08/10/18at 17:48; Start 08/06/18 at 18:15 Nicotine (Nicoderm Cq 14mg) 1 patch DAILY TD ; Start 08/07/18 at 09:00; Status UNV Olanzapine (ZyPREXA ZYDIS) 2.5 mg PRN Q2HR PRN PO ANXIETY / AGITATION Last administered on 08/08/18at 11:46; Start 08/07/18 at 09:30 Gabapentin (Neurontin) 600 mg QHS PO Last administered on 08/12/18at 19:43; Start 08/07/18 at 21:00 Divalproex Sodium (Depakote) 500 mg QHS PO Last administered on 08/07/18at 20: 36; Start 08/07/18 at 21:00; Stop 08/07/18 at 21:00; Status DC Olanzapine (ZyPREXA ZYDIS) 10 mg ONCE ONCE PO Last administered on 08/07/18at 17:43; Start 08/07/18 at 17:30; Stop 08/07/18 at 17:31; Status DC Lorazepam (Ativan) 0.25 mg PRN QID PRN PO ANXIETY / AGITATION Last administered on 08/08/18at 11:46; Start 08/07/18 at 17:00 Divalproex Sodium (Depakote Sprinkles) 500 mg QHS PO Last administered on 08/12at 19:43; Start 08/07/18 at 21:00 Risperidone (RisperDAL) 1 mg BID PO Last administered on 08/13/18at 08:08; Start 08/08/18 at 11:30 [place] Carbonate 300 mg HS PO ; Start 08/14/18 at 21:00 [place] Carbonate 150 mg DAILY PO ; Start 08/14/18 at 09:00 Active Scripts Active Reported NICODERM CQ 14mg (Nicotine) 1 Each Patch.td24 1 Patch TP DAILY [place] Carbonate 300 Mg Tablet 300 Mg PO DAILY Ipratropium [place] 30 Ml [place] 30 Ml NS BID Advair Hfa 230-21 Mcg Inhaler (Fluticasone/Salmeterol) 12 Gm Hfa.aer.ad 12 Gm IH BID Seroquel (Quetiapine Fumarate) 25 Mg Tablet 25 Mg PO QHS Tramadol Hcl (Tramadol HCl) 50 Mg Tablet 50 Mg PO PRN Q8HRS PRN Miralax (Polyethylene Glycol 3350) 17 Gm Powd.pack 1 Packet PO DAILY Orphenadrine Citrate 100 Mg Tablet.er 1 Tab PO PRN BID PRN Meclizine Hcl 25 Mg Tablet 1 Tab PO TID PRN Levothyroxine Sodium 88 Mcg Tablet 1 Tab PO DAILY Culturelle (Lactobacillus Rhamnosus Gg) 1 Each Cap.sprink 1 Each PO DAILY Mucinex (Guaifenesin) 600 Mg Tablet.er 1 Tab PO PRN BID PRN [place] 3 Fish Oil Softgel ([place]-3 Fatty Acids/Fish Oil) 1 Each Capsule.dr 1 Each PO DAILY PRN Ferrous Sulfate 325 Mg Tablet 1 Tab PO DAILY Coenzyme Q10 (Ubidecarenone) 100 Mg Capsule 100 Mg PO DAILY Vitamin D3 (Cholecalciferol (Vitamin D3)) 1,000 Unit Tablet 1 Tab PO DAILY Zyrtec (Cetirizine Hcl) 10 Mg Tablet 1 Tab PO PRN DAILY PRN Buspirone Hcl 5 Mg Tablet 1 Tab PO PRN Q8HRS PRN Aspirin 81 Mg Tab.chew 81 Mg PO DAILY Ascorbic Acid 500 Mg Tablet 500 Mg PO DAILY I have reviewed the current psychotropics carefully including drug interactions. Risk benefit ratio favors no change other than as noted in my dictated progress note. Diagnosis: Problems: (1) Paranoia (2) Renal insufficiency (3) Agitation (4) Medical clearance for psychiatric admission ZOFIA INFANTE MD Aug 13, 2018 19:43
[2018-08-13] MEDS: GABAPENTIN 300 MG CAPSULE. PO SCH (20:41)
[2018-08-13] MEDS: DIVALPROEX 125 MG CAP.SPRINK PO SCH (20:41)
[2018-08-13] MEDS: QUEtiapine 25 MG TABLET. PO SCH (20:41)
--- NOTE | 2018-08-13 22:27 | PN ---
DATE: 08/12/2018 PSYCHIATRIC PROGRESS NOTE This is a late entry 08/12/2018 covers elements not covered in my initial note. SUBJECTIVE: I met with the patient in the evening and discussed with Dr. Ruelas, who had covered for me over the past 1 week or so. The patient remains quite confused, oriented to herself. Speech is word salad, slept 6 hours previous night. I have reviewed records from the [facility] with a diagnosis of bipolar disorder. She takes her meds hidden, somewhat hyperverbal at times. Valproic acid level 61 on the 08/11/2018. [place] level 0.6. She remains extremely paranoid, suspicious, talking, but family being threatened and the mafia and people being after her and everyone here. has been caring for her ever since she had the onset of her psychosis with bipolar disorder in 1993. Apparently, there is a family history of bipolar disorder, which is significant as well. REVIEW OF SYSTEMS: She is in a wheelchair, though previously she was ambulating independently. No CV, , pulmonary, eye, ENT system symptoms on review. MENTAL STATUS EXAM: Oriented to herself and situation. Speech coherent, rapid at times. Abstraction fair, computation impaired, language function intact, attention span short. Mood and affect remains labile, grandiose, quite psychotic. LABORATORY DATA: Reviewed. IMPRESSION: Bipolar 1 disorder, mixed with psychotic features; cognitive disorder, unspecified; anxiety disorder, unspecified. PLAN: Continue current psychotropics, Risperdal 1 mg b.i.d. She is on Seroquel 25 at bedtime, lithium 300 mg daily, Ativan p.r.n., Zyprexa p.r.n., Depakote ER 500 mg at bedtime, Neurontin 600 mg at bedtime. May need to increase lithium to a more robust level, but we will decide in a day or so. ZOFIA INFANTE MD DR: CASTILLO/caleb JOB#: [id number] / [id number]
[2018-08-14] MEDS: LEVOTHYROXINE 88 MCG TABLET PO SCH (05:04)
[2018-08-14] MEDS: ALBUTEROL SULFATE 2.5 MG/3 ML NEBU. NEB SCH ×2 (05:18→11:14)
[2018-08-14 05:54] VITALS: BP 85/57
[2018-08-14 06:43] LABS: BASO % 0 % (0-3); EOS # 0.2 x10^3/uL (0.0-0.7); EOS % 2 % (0-3); HEMOGLOBIN 9.8 g/dL (12.0-15.5); LYMPH # 2.1 x10^3/uL (1.0-4.8); LYMPH % 15 % (24-48); MEAN CORPUSCULAR HEMOGLOBIN 31 pg (25-35); MEAN CORPUSCULAR HGB CONC 33 g/dL (31-37); MEAN CORPUSCULAR VOLUME 94 fL (79-100); MONO # 1.3 x10^3/uL (0.0-1.1); MONO % 10 % (0-9); NEUT # 9.9 x10^3uL (1.8-7.7); NEUT % 73 % (31-73); PLATELET COUNT 146 x10^3/uL (140-400); RED BLOOD COUNT 3.19 x10^6/uL (3.50-5.40); RED CELL DISTRIBUTION WIDTH 13.7 % (11.5-14.5); WHITE BLOOD COUNT 13.5 x10^3/uL (4.0-11.0)
[2018-08-14 07:00] LABS: ALBUMIN 2.2 g/dL (3.4-5.0); ALBUMIN/GLOBULIN RATIO 0.5 (1.0-1.7); CALCIUM 9.2 mg/dL (8.5-10.1); CREATININE 1.6 mg/dL (0.6-1.0); GFR 31.3; POTASSIUM 4.9 mmol/L (3.5-5.1); TOTAL BILIRUBIN 0.2 mg/dL (0.2-1.0); TOTAL PROTEIN 6.3 g/dL (6.4-8.2)
[2018-08-14] MEDS: UBIDECARENONE 50 MG CAPSULE. PO SCH (07:48)
[2018-08-14] MEDS: OMEGA-3 FATTY ACIDS/FISH OIL 1,000 MG CAPSULE. PO SCH (07:48)
[2018-08-14] MEDS: CHOLECALCIFEROL (VITAMIN D3) 1,000 UNIT TABLET PO SCH (07:48)
[2018-08-14] MEDS: LACTOBACILLUS RHAMNOSUS GG 1 CAPSULE. PO SCH (07:48)
[2018-08-14] MEDS: ASCORBIC ACID 500 MG TABLET PO SCH (07:48)
[2018-08-14] MEDS: FERROUS SULFATE 325 MG TABLET. PO SCH (07:48)
[2018-08-14] MEDS: ASPIRIN 81 MG TAB.CHEW PO SCH (07:48)
[2018-08-14] MEDS: risperiDONE 1 MG TABLET. PO SCH (07:48)
[2018-08-14] MEDS: POLYETHYLENE GLYCOL 3350 17 GM PACKET. PO SCH (07:49)
[2018-08-14] MEDS: IPRATROPIUM BROMIDE 0.06% NASAL SPRAY 15ML BOTTLE NS SCH (07:55)
[2018-08-14] MEDS ORDERED: IV NORMAL SALINE 500ML 500 ML IV ONE (08:00)
[2018-08-14] MEDS: BUDESONIDE 0.5 MG/2 ML NEBU NEB SCH (08:00)
[2018-08-14] MEDS ORDERED: LITHIUM CARBONATE 300 MG TABLET PO SCH ×2 (09:00→21:00)
[2018-08-14 11:52] LABS: BILIRUBIN,URINE NEG (NEG); CLARITY,URINE TURBID; COLOR,URINE YELLOW; GLUCOSE,URINE NEG (NEG)
[2018-08-14 11:53] LABS: NITRITE,URINE NEG (NEG); UROBILINOGEN,URINE 0.2 mg/dL (0.2 mg/dL)
[2018-08-14 11:54] LABS: BACTERIA,URINE MANY /HPF (0-FEW); SQUAMOUS EPITHELIAL CELL,UR OCC /LPF; WBC,URINE >40 /HPF (0-4)
[2018-08-14] MEDS ORDERED: ACET325T9 PO (15:22)
[2018-08-14] MEDS ORDERED: ALBU2.5V5 NEB (15:23)
[2018-08-14] MEDS ORDERED: BUDE0.5A3 NEB (15:24)
[2018-08-14] MEDS ORDERED: DIVA125C2 PO (15:25)
[2018-08-14] MEDS ORDERED: GABA600T2 PO (15:26)
[2018-08-14] MEDS ORDERED: LITH150C PO (15:26)
[2018-08-14] MEDS ORDERED: LORA0.5T PO (15:27)
[2018-08-14] MEDS ORDERED: [UNRECOGNIZED DRUG - CODE] PO (15:28)
[2018-08-14] MEDS ORDERED: MAGN2400 PO (15:28)
[2018-08-14] MEDS ORDERED: METH29OI TP (15:29)
[2018-08-14] MEDS ORDERED: OLAN5TAB5 PO (15:30)
[2018-08-14] MEDS ORDERED: RISP1TAB3 PO (15:31)
--- NOTE | 2018-08-14 16:41 | RAD ---
CHEST AP ONLY History: ELEVATED LACTIC ACID LEVEL. Comparison: None. Cardiomediastinal silhouette: Not grossly enlarged. Lungs: There are some prominent linear markings throughout both lungs. More focal density at the left lung base. No dense lobar consolidation. Pleura: Difficult to exclude small left pleural effusion. No right effusion. Pneumothorax: None visualized Support Devices: None Surgical clips on the left. IMPRESSION: 1. Mild left lung base atelectasis or infiltrate. 2. Mild interstitial markings are of indeterminate age, but could be chronic. Electronically signed by: Tiago Hyman MD (08/14/2018 4:37 PM) [facility]
--- NOTE | 2018-08-14 19:29 | PDOC ---
Exam Note: Alessandro Note: Please also refer to the separate dictated note~for this date of service dictated separately.~Patient seen individually. Discussed the patient with Nursing staff reviewed the chart.~Reviewed interim history and current functioning. Reviewed vital signs,~Labs/ Radiology~and current medications noted below. Continue current treatment with the changes noted in the dictated addendum note Assessment: Vital Signs: Vital Signs Date Time Temp Pulse Resp B/P (MAP) Pulse Ox O2 Delivery O2 Flow Rate FiO2 08/14/18 11:15 99 Room Air 08/14/18 05:54 98.6 64 18 85/57 (66) I&O Intake and Output 08/14/18 07:00 Intake Total 1200 ml Balance 1200 ml Intake Oral 1200 ml # Bowel Movements 1 Labs: Laboratory Tests Test 08/14/18 06:35 08/14/18 10:47 08/14/18 11:00 White Blood Count 13.5 x10^3/uL (4.0-11.0) H Red Blood Count 3.19 x10^6/uL (3.50-5.40) L Hemoglobin 9.8 g/dL (12.0-15.5) L Hematocrit 30.0 % (36.0-47.0) L Mean Corpuscular Volume 94 fL (79-100) Mean Corpuscular Hemoglobin 31 pg (25-35) Mean Corpuscular Hemoglobin Concent 33 g/dL (31-37) Red Cell Distribution Width 13.7 % (11.5-14.5) Platelet Count 146 x10^3/uL (140-400) Neutrophils (%) (Auto) 73 % (31-73) Lymphocytes (%) (Auto) 15 % (24-48) L Monocytes (%) (Auto) 10 % (0-9) H Eosinophils (%) (Auto) 2 % (0-3) Basophils (%) (Auto) 0 % (0-3) Neutrophils # (Auto) 9.9 x10^3uL (1.8-7.7) H Lymphocytes # (Auto) 2.1 x10^3/uL (1.0-4.8) Monocytes # (Auto) 1.3 x10^3/uL (0.0-1.1) H Eosinophils # (Auto) 0.2 x10^3/uL (0.0-0.7) Basophils # (Auto) 0.0 x10^3/uL (0.0-0.2) Sodium Level 138 mmol/L (136-145) Potassium Level 4.9 mmol/L (3.5-5.1) Chloride Level 101 mmol/L (98-107) Carbon Dioxide Level 29 mmol/L (21-32) Anion Gap 8 (6-14) Blood Urea Nitrogen 40 mg/dL (7-20) H Creatinine 1.6 mg/dL (0.6-1.0) H Estimated GFR (Cockcroft-Gault) 31.3 BUN/Creatinine Ratio 25 (6-20) H Glucose Level 111 mg/dL (70-99) H Lactic Acid Level 2.3 mmol/L (0.4-2.0) H 2.5 mmol/L (0.4-2.0) H Calcium Level 9.2 mg/dL (8.5-10.1) Total Bilirubin 0.2 mg/dL (0.2-1.0) Aspartate Amino Transferase (AST) 15 U/L (15-37) Alanine Aminotransferase (ALT) 27 U/L (14-59) Alkaline Phosphatase 69 U/L (46-116) Total Protein 6.3 g/dL (6.4-8.2) L Albumin 2.2 g/dL (3.4-5.0) L Albumin/Globulin Ratio 0.5 (1.0-1.7) L Urine Collection Type Unknown Urine Color Yellow Urine Clarity Turbid Urine pH 7.0 Urine Specific [place] 1.010 Urine Protein Trace (NEG-TRACE) Urine Glucose (UA) Neg mg/dL (NEG) Urine Ketones (Stick) Neg mg/dL (NEG) Urine Blood Small (NEG) Urine Nitrite Neg (NEG) Urine Bilirubin Neg (NEG) Urine Urobilinogen Dipstick 0.2 mg/dL (0.2 mg/dL) Urine Leukocyte Esterase Large (NEG) Urine RBC 3-5 /HPF (0-2) Urine WBC >40 /HPF (0-4) Urine Squamous Epithelial Cells Occ /LPF Urine Transitional Epithelial Cells Occ /LPF Urine Bacteria Many /HPF (0-FEW) Current Medications: Meds: Current Medications Ascorbic Acid (Vitamin C) 500 mg DAILY PO Last administered on 08/14/18at 07:48 ; Start 08/07/18 at 09:00; Stop 08/14/18 at 15:46; Status DC Vitamin D (Vitamin D3) 1,000 unit DAILY PO Last administered on 08/14/18at 07: 48; Start 08/07/18 at 09:00; Stop 08/14/18 at 15:46; Status DC Ferrous Sulfate (Feosol) 325 mg DAILY PO Last administered on 08/14/18at 07:48 ; Start 08/07/18 at 09:00; Stop 08/14/18 at 15:46; Status DC Guaifenesin (Mucinex Er) 600 mg PRN BID PRN PO COUGH; Start 08/06/18 at 17:30 ; Stop 08/14/18 at 15:46; Status DC Lactobacillus Rhamnosus (Culturelle) 1 cap DAILY PO Last administered on at 07:48; Start 08/07/18 at 09:00; Stop 08/14/18 at 15:46; Status DC Levothyroxine Sodium (Synthroid) 88 mcg DAILY06 PO Last administered on at 05:04; Start 08/07/18 at 06:00; Stop 08/14/18 at 15:46; Status DC Tramadol HCl (Ultram) 50 mg PRN Q8HRS PRN PO PAIN; Start 08/06/18 at 17:30; Stop 08/14/18 at 15:46; Status DC Aspirin (Children'S Aspirin) 81 mg DAILYWBKFT PO Last administered on at 07:48; Start 08/07/18 at 08:00; Stop 08/14/18 at 15:46; Status DC Buspirone HCl (Buspar) 5 mg PRN Q8HRS PRN PO ANXIETY / AGITATION Last administered on 08/07/18at 07:58; Start 08/06/18 at 18:00; Stop 08/07/18 at 17 :06; Status DC Cetirizine HCl (ZyrTEC) 10 mg PRN DAILY PRN PO ALLERGIES; Start 08/07/18 at 09 :00; Stop 08/14/18 at 15:46; Status DC Non-Formulary Medication (Fluticasone/ Salmeterol (Advair Hfa 230-21 Mcg Inhaler )) 12 gm BID IH ; Start 08/06/18 at 21:00; Status UNV Ipratropium [place] (Atrovent Nasal) 2 spray BID NS Last administered on at 07:55; Start 08/06/18 at 21:00; Stop 08/14/18 at 15:46; Status DC [place] Carbonate 300 mg DAILY PO Last administered on 08/13/18at 08:08; Start 08/07/18 at 09:00; Stop 08/13/18 at 16:51; Status DC Meclizine HCl (Antivert) 12.5 mg PRN TID PRN PO DIZZINESS; Start 08/06/18 at 18:00; Stop 08/14/18 at 15:46; Status DC Nicotine (Nicoderm Cq 14mg) 1 patch DAILY TD Last administered on 08/12/18at 07 :47; Start 08/07/18 at 09:00; Stop 08/13/18 at 13:39; Status DC Fish Oil (Fish Oil) 1,000 mg DAILY PO Last administered on 08/14/18at 07:48; Start 08/07/18 at 09:00; Stop 08/14/18 at 15:46; Status DC Orphenadrine Citrate (Norflex Er) 100 mg PRN BID PRN PO MUSCLE SPASMS; Start 08/06/18 at 18:00; Stop 08/14/18 at 15:46; Status DC Polyethylene Glycol (miraLAX) 17 gm DAILY PO Last administered on 08/14/18at 07 :49; Start 08/07/18 at 09:00; Stop 08/14/18 at 15:46; Status DC Quetiapine Fumarate (SEROquel) 25 mg QHS PO Last administered on 08/13/18at 20: 41; Start 08/06/18 at 21:00; Stop 08/14/18 at 15:46; Status DC Coenzyme Q10 (Coenzyme Q10) 100 mg DAILY PO Last administered on 08/14/18at 07: 48; Start 08/07/18 at 09:00; Stop 08/14/18 at 15:46; Status DC Albuterol Sulfate (Ventolin) 2.5 mg RTQID NEB Last administered on 08/14/18at 11:14; Start 08/06/18 at 20:00; Stop 08/14/18 at 15:46; Status DC Budesonide (Pulmicort) 0.5 mg RTBID NEB Last administered on 08/14/18at 08:00; Start 08/06/18 at 20:00; Stop 08/14/18 at 15:46; Status DC Acetaminophen (Tylenol) 650 mg PRN Q6HRS PRN PO PAIN / TEMP Last administered on 08/13/18at 05:13; Start 08/06/18 at 18:15; Stop 08/14/18 at 15:46; Status DC Multi-Ingredient Ointment (Analgesic [place]) 1 santosh PRN QID PRN TP MUSCLE PAIN; Start 08/06/18 at 18:15; Stop 08/14/18 at 15:46; Status DC Al Hydroxide/Mg Hydroxide (Mylanta Plus Xs) 15 ml PRN AFTMEALHC PRN PO DYSPEPSIA; Start 08/06/18 at 18:15; Stop 08/14/18 at 15:46; Status DC Magnesium Hydroxide (Milk Of Magnesia) 2,400 mg PRN QHS PRN PO CONSTIPATION Last administered on 08/10/18at 17:48; Start 08/06/18 at 18:15; Stop 08/14/18 at 15:46; Status DC Nicotine (Nicoderm Cq 14mg) 1 patch DAILY TD ; Start 08/07/18 at 09:00; Status UNV Olanzapine (ZyPREXA ZYDIS) 2.5 mg PRN Q2HR PRN PO ANXIETY / AGITATION Last administered on 08/08/18at 11:46; Start 08/07/18 at 09:30; Stop 08/14/18 at 15 :46; Status DC Gabapentin (Neurontin) 600 mg QHS PO Last administered on 08/13/18at 20:41; Start 08/07/18 at 21:00; Stop 08/14/18 at 15:46; Status DC Divalproex Sodium (Depakote) 500 mg QHS PO Last administered on 08/07/18at 20: 36; Start 08/07/18 at 21:00; Stop 08/07/18 at 21:00; Status DC Olanzapine (ZyPREXA ZYDIS) 10 mg ONCE ONCE PO Last administered on 08/07/18at 17:43; Start 08/07/18 at 17:30; Stop 08/07/18 at 17:31; Status DC Lorazepam (Ativan) 0.25 mg PRN QID PRN PO ANXIETY / AGITATION Last administered on 08/08/18at 11:46; Start 08/07/18 at 17:00; Stop 08/14/18 at 15 :46; Status DC Divalproex Sodium (Depakote Sprinkles) 500 mg QHS PO Last administered on 08/13at 20:41; Start 08/07/18 at 21:00; Stop 08/14/18 at 15:46; Status DC Risperidone (RisperDAL) 1 mg BID PO Last administered on 08/14/18at 07:48; Start 08/08/18 at 11:30; Stop 08/14/18 at 15:46; Status DC [place] Carbonate 300 mg HS PO ; Start 08/14/18 at 21:00; Stop 08/14/18 at 21: 00; Status DC [place] Carbonate 150 mg DAILY PO Last administered on 08/14/18at 07:55; Start 08/14/18 at 09:00; Stop 08/14/18 at 15:46; Status DC Sodium Chloride 500 ml @ 0 mls/hr 1X ONCE IV Last administered on 08/14/18at 10:53; Start 08/14/18 at 08:00; Stop 08/14/18 at 08:24; Status DC Active Scripts Active Reported Risperidone 1 Mg Tablet 1 Mg PO BID Zyprexa Zydis (Olanzapine) 5 Mg Tab.rapdis 2.5 Mg PO PRN Q2HR PRN Analgesic [place] (Methyl Salicylate/Menthol) 28 Gm Oint...g. 1 [place]osh TP PRN QID PRN Milk Of Magnesia (Magnesium Hydroxide) 2,400 Mg/10 Ml Oral.susp 2,400 Mg PO PRN QHS PRN [place] Liquid (Mag Hydrox/Al Hydrox/Simeth) 360 Ml Oral.susp 15 Ml PO PRN AFTMEALHC PRN Lorazepam 0.5 Mg Tablet 0.25 Mg PO PRN QID PRN [place] Carbonate 150 Mg Capsule 150 Mg PO DAILY Gabapentin 600 Mg Tablet 600 Mg PO QHS Depakote Sprinkle (Divalproex Sodium) 125 Mg Cap.sprink 500 Mg PO QHS Pulmicort (Budesonide) 0.5 Mg/2 Ml Ampul.neb 0.5 Mg NEB RTBID Albuterol Sulfate Neb Soln (Albuterol Sulfate) 2.5 Mg/3 Ml Vial.neb 2.5 Mg NEB RTQID Tylenol (Acetaminophen) 325 Mg Tablet 650 Mg PO PRN Q6HRS PRN [place] Carbonate 300 Mg Tablet 300 Mg PO HS Ipratropium [place]iboll 30 Ml [place] 30 Ml NS BID Seroquel (Quetiapine Fumarate) 25 Mg Tablet 25 Mg PO QHS Tramadol Hcl (Tramadol HCl) 50 Mg Tablet 50 Mg PO PRN Q8HRS PRN Miralax (Polyethylene Glycol 3350) 17 Gm Powd.pack 1 Packet PO DAILY Orphenadrine Citrate 100 Mg Tablet.er 1 Tab PO PRN BID PRN Meclizine Hcl 25 Mg Tablet 12.5 Mg PO PRN TID PRN Levothyroxine Sodium 88 Mcg Tablet 88 Mcg PO DAILY06 Culturelle (Lactobacillus Rhamnosus Gg) 1 Each Cap.sprink 1 Each PO DAILY Mucinex (Guaifenesin) 600 Mg Tablet.er 1 Tab PO PRN BID PRN [place] 3 Fish Oil Softgel ([place]-3 Fatty Acids/Fish Oil) 1 Each Capsule.dr 1 Each PO DAILY PRN Ferrous Sulfate 325 Mg Tablet 325 Mg PO DAILY Coenzyme Q10 (Ubidecarenone) 100 Mg Capsule 100 Mg PO DAILY Vitamin D3 (Cholecalciferol (Vitamin D3)) 1,000 Unit Tablet 1 Tab PO DAILY Zyrtec (Cetirizine Hcl) 10 Mg Tablet 1 Tab PO PRN DAILY PRN Aspirin 81 Mg Tab.chew 81 Mg PO DAILY Ascorbic Acid 500 Mg Tablet 500 Mg PO DAILY I have reviewed the current psychotropics carefully including drug interactions. Risk benefit ratio favors no change other than as noted in my dictated progress note. Diagnosis: Problems: (1) Sepsis ZOFIA INFANTE MD Aug 14, 2018 19:29
--- NOTE | 2018-08-14 21:18 | PN ---
DATE: 08/13/2018 This is a late entry for 08/13/2018 covers elements not covered in my initial note. SUBJECTIVE: I met with the patient in the evening. The patient slept for 3/4 hours previous night. The patient refused nicotine patch, was quite paranoid, suspicious, talking about AIDS versus venereal disease, somewhat disorganized. I have received paperwork from her assistant prosecuting attorney where her has been appointed a guardian. Speech is word salad. She takes her medications if they are hidden in her food. has told us that he feels she does best when her lithium level is 0.8 and he would almost prefer to have her off the Depakote because she resents being on it. We will address this at the treatment team meeting with him. [place] level currently is 0.6, and as noted below, we will add lithium 150 mg in the morning, check CBC, CMP level in 3 days, hopefully to reach a level of 0.8. REVIEW OF SYSTEMS: Ambulation impaired, in a wheelchair. She has vague somatic symptoms. No CV, , pulmonary, eye, ENT system symptoms on review. MENTAL STATUS EXAM: Oriented to herself. Insight, judgment, recent memory is impaired. Language function intact. Attention-span short. She is quite paranoid, delusional, suspicious, labile with some word salad. LABORATORY DATA: Reviewed. IMPRESSION: Bipolar 1 disorder, mixed with psychotic features; anxiety disorder, unspecified; cognitive disorder, unspecified. PLAN: Continue psychotropics from initial note. Add the lithium as noted. Check CBC, CMP level in 3 days. Rest unchanged. MAN Nam INFANTE MD DR: CASTILLO/caleb JOB#: [id number] / [id number]
--- NOTE | 2018-08-16 12:25 | DS ---
DATE OF DISCHARGE: 08/14/2018 DISCHARGE SUMMARY/PSYCHIATRIC PROGRESS NOTE This late entry 08/14/2018 covers elements, not covered in my initial note. REASON FOR ADMISSION: Please refer to the admission history for details. HISTORY OF PRESENT ILLNESS: Briefly, the patient is a 77-year-old female who initially presented from home, referred by her primary care physician and outpatient psychiatric providers in [place] on account of an exacerbation of her bipolar disorder. The patient had become increasingly delusional, was paranoid, having flight of ideas. She believed she was poisoned and phones are being tapped. She was hyper-bahai, hypersexual. She had been in fairly regular and intense outpatient psychiatric treatment and had failed all of this resulting in this referral. SIGNIFICANT FINDINGS AND CLINICAL COURSE: Following admission, the patient was seen daily individually by myself from a psychiatric standpoint and by Dr. Ruelas during my vacation. She was followed medically per Dr. Ray. She was extremely paranoid, delusional with marked mood lability. I had reviewed her past history of bipolar disorder, starting in the mid with elation, racing thoughts alternating with depression and marked psychotic symptoms. Adjustments were made in her psychotropics and she seemed to be doing somewhat better on a combination of lithium carbonate 150 mg a.m. and 300 mg at bedtime with a blood level of 0.6. Ages was adjusted as the felt she in the past had done best with a level of around 0.8 and the plan was to achieve that therapeutic level for her. She is also on Depakote ER adjusted to 500 mg p.o. at bedtime, Seroquel 25 mg at bedtime, Ativan 0.25 mg q.i.d. p.r.n. anxiety, Zyprexa p.r.n., Neurontin 600 mg at bedtime, Risperdal 1 mg b.i.d. Consequently, she was on 2 atypical antipsychotics at discharge when she was transferred to [address] [place] [address] for UTI with sepsis per Dr. Ray. When she is medically stabilized, I would recommend starting in one month the Seroquel could be stopped, as clinically indicated to avoid using 2 atypical antipsychotics in combination. Prior to discharge, she still remains psychotic with some mood lability even though she showed improvement and we will be happy to have her back on our unit for further psychiatric stabilization when she is medically stable, prior to discharge 08/14/2018. REVIEW OF SYSTEMS: Ambulation impaired. No CV, , pulmonary, eye system symptoms on review. Reliability poor. MENTAL STATUS EXAM: Oriented to herself and situation. Speech has some latency, at times a little pressured. Abstraction fair, computation impaired, language function intact, attention span short. Mood and affect remain somewhat labile, but improved. LABORATORY DATA: Reviewed. FINAL DIAGNOSES: Bipolar 1 disorder, mixed with psychotic features, in partial remission; anxiety disorder, unspecified; impulse control disorder, unspecified; cognitive disorder, unspecified; urinary tract infection, sepsis. Rest of diagnoses unchanged. PLAN: Continue psychotropics indicated on the MRAD. I would be happy to reassess her to come back on our unit if clinically indicated when she is medically stabilized per Dr. Ray. MAN Nam INFANTE MD DR: CASTILLO/caleb JOB#: [id number] / [id number]
[2018-08-16] MEDS ORDERED: CEFD300C PO (14:01)
== END 2018-08-14 15:46 | disposition short-term general hospital (02) | DRG 885 ==
LOC: ER 12:52 → GEROPSY 13:54
PROVIDERS: ADMIT Psychiatry & Neurology Psychiatry; ATTEND Psychiatry & Neurology Psychiatry
DX: F31.0 Bipolar disorder, current episode hypomanic (principal); A41.9 Sepsis, unspecified organism; I13.0 Hypertensive heart and chronic kidney disease with heart failure and stage 1 through stage 4 chronic kidney disease, or unspecified chronic kidney disease; N39.0 Urinary tract infection, site not specified; E03.9 Hypothyroidism, unspecified; E78.5 Hyperlipidemia, unspecified; F09 Unspecified mental disorder due to known physiological condition; F22 Delusional disorders; F41.9 Anxiety disorder, unspecified; F42.9 Obsessive-compulsive disorder, unspecified; I50.9 Heart failure, unspecified; J44.9 Chronic obstructive pulmonary disease, unspecified; K58.9 Irritable bowel syndrome, unspecified; G89.29 Other chronic pain; M19.90 Unspecified osteoarthritis, unspecified site; M79.7 Fibromyalgia; M81.0 Age-related osteoporosis without current pathological fracture; N18.3 Chronic kidney disease, stage 3 (moderate); Z02.89 Encounter for other administrative examinations; Z85.118 Personal history of other malignant neoplasm of bronchus and lung; Z86.73 Personal history of transient ischemic attack (TIA), and cerebral infarction without residual deficits; Z87.891 Personal history of nicotine dependence; Z79.899 Other long term (current) drug therapy; Z88.6 Allergy status to analgesic agent; Z88.1 Allergy status to other antibiotic agents; Z88.2 Allergy status to sulfonamides; Z88.8 Allergy status to other drugs, medicaments and biological substances
CPT/HCPCS: 36415; 71045; 80053; 80061; 80164; 80178; 81001; 83036; 83605; 83735; 85007; 85025; 86592; 87086; 87186; 93005; 94640; J7040; J7613; J7626; 97116; 97530; 97535; 99285-25

== ENCOUNTER 2018-08-14 15:51 | Inpatient (IN) | payer BC ==
[~2018-08-14] VITALS: Ht 162.6 cm; Wt 57.2 kg
[~2018-08-14 15:51] MED LIST: ACET325T9 PO; ALBU2.5V5 NEB; ASCO500T3 PO; ASPI-630 PO; BUDE0.5A3 NEB; BUSP5TAB PO; CETI10TA22 PO; CHOL10003 PO; DIVA125C2 PO; FERR325T14 PO; FLUT12HF3 IH; GABA600T2 PO; GUAI600T47 PO; IPRA30SP NS; LACT1CAP19 PO; LEVO88TA4 PO; LITH150C PO; LITH300T3 PO; LORA0.5T PO; MAGN2400 PO; MECL25TA3 PO; METH29OI TP; NICO1PAT25 TP; OLAN5TAB5 PO; OMEG1CAP38 PO; ORPH-16 PO; POLY17PO5 PO; QUET25TA5 PO; RISP1TAB3 PO; TRAM50TA PO; UBID100C PO; [UNRECOGNIZED DRUG - CODE] PO
[2018-08-14] MEDS ORDERED: IPRATRPIUM/ALBUTEROL 0.5/2.5MG 3 ML NEBU. ONE (15:53)
[2018-08-14] MEDS ORDERED: METHYL SALICYLATE/MENTHOL TOPICAL OINTMENT 29GM TUBE. TP PRN (16:15)
[2018-08-14] MEDS ORDERED: ACETAMINOPHEN 325 MG TABLET PO PRN (16:15)
[2018-08-14] MEDS ORDERED: traMADol 50 MG TABLET PO PRN (16:15)
[2018-08-14 16:18] VITALS: BP 97/55
[2018-08-14] MEDS ORDERED: CETIRIZINE HCL 10 MG TABLET PO PRN (16:45)
[2018-08-14] MEDS ORDERED: MAG HYDROX/AL HYDROX/SIMETH 30 ML ORAL.SUSP PO PRN (17:00)
[2018-08-14] MEDS ORDERED: MAGNESIUM HYDROXIDE 2,400 MG/30 ML ORAL.SUSP. PO PRN (17:00)
[2018-08-14] MEDS ORDERED: MECLIZINE 12.5 MG TABLET. PO PRN (17:15)
[2018-08-14] MEDS ORDERED: ORPHENADRINE ER 100 MG TABLET.ER PO PRN (17:15)
[2018-08-14] MEDS: IV NORMAL SALINE 1,000ML 1,000 ML IV SCH (17:37)
--- NOTE | 2018-08-14 19:31 | PDOC ---
Exam Note: Alessandro Note: Please also refer to the separate dictated note~for this date of service dictated separately.~Patient seen individually. Discussed the patient with Nursing staff reviewed the chart.~Reviewed interim history and current functioning. Reviewed vital signs,~Labs/ Radiology~and current medications noted below. Continue current treatment with the changes noted in the dictated addendum note Assessment: Vital Signs: Vital Signs Date Time Temp Pulse Resp B/P (MAP) Pulse Ox O2 Delivery O2 Flow Rate FiO2 08/14/18 16:46 Room Air 08/14/18 16:18 97.8 59 24 97/55 (69) 97 Current Medications: Meds: Current Medications Albuterol/ Ipratropium (Duoneb) 3 ml STK-MED ONCE .ROUTE Last administered on 08/14/18at 15:53; Start 08/14/18 at 15:53; Stop 08/14/18 at 15:54; Status DC Sodium Chloride 1,000 ml @ 75 mls/hr [id number] IV Last administered on at 17:37; Start 08/14/18 at 16:15 Ceftriaxone Sodium 1 gm/ Sodium Chloride 50 ml @ 100 mls/hr Q24H IV Last administered on 08/14/18at 17:34; Start 08/14/18 at 17:00 Acetaminophen (Tylenol) 650 mg PRN Q6HRS PRN PO pain/temp; Start 08/14/18 at 16:15 Albuterol Sulfate (Ventolin) 2.5 mg RTQID NEB ; Start 08/14/18 at 20:00 Ascorbic Acid (Vitamin C) 500 mg DAILY PO ; Start 08/15/18 at 09:00 Vitamin D (Vitamin D3) 1,000 unit DAILY PO ; Start 08/15/18 at 09:00 Ferrous Sulfate (Feosol) 325 mg DAILY PO ; Start 08/15/18 at 09:00 Guaifenesin (Mucinex Er) 600 mg PRN BID PRN PO COUGH; Start 08/14/18 at 16:15 Lactobacillus Rhamnosus (Culturelle) 1 cap DAILY PO ; Start 08/15/18 at 09:00 Multi-Ingredient Ointment (Analgesic [place]) 1 santosh PRN QID PRN TP muscle pain; Start 08/14/18 at 16:15 Olanzapine (ZyPREXA ZYDIS) 2.5 mg PRN Q2HR PRN PO ANXIETY / AGITATION; Start 08/14/18 at 16:15 Tramadol HCl (Ultram) 50 mg PRN Q8HRS PRN PO PAIN; Start 08/14/18 at 16:15 Aspirin (Children'S Aspirin) 81 mg DAILYWBKFT PO ; Start 08/15/18 at 08:00 Non-Formulary Medication (Budesonide (Pulmicort)) 0.5 mg RTBID NEB ; Start at 20:00; Status UNV Cetirizine HCl (ZyrTEC) 10 mg PRN DAILY PRN PO ALLERGIES; Start 08/14/18 at 16 :45 Divalproex Sodium (Depakote Sprinkles) 500 mg HS PO ; Start 08/14/18 at 21:00 Gabapentin (Neurontin) 600 mg HS PO ; Start 08/14/18 at 21:00 Ipratropium [place] (Atrovent Nasal) 2 spray BID NS ; Start 08/14/18 at 21:00 [place] Carbonate 150 mg DAILY PO ; Start 08/15/18 at 09:00 [place] Carbonate 300 mg HS PO ; Start 08/14/18 at 21:00 Lorazepam (Ativan) 0.25 mg PRN QID PRN PO ANXIETY / AGITATION; Start 08/14/18 at 17:00 Al Hydroxide/Mg Hydroxide (Mylanta Plus Xs) 15 ml PRN AFTMEALHC PRN PO DYSPEPSIA; Start 08/14/18 at 17:00 Magnesium Hydroxide (Milk Of Magnesia) 2,400 mg PRN QHS PRN PO CONSTIPATION; Start 08/14/18 at 17:00 Meclizine HCl (Antivert) 12.5 mg PRN TID PRN PO DIZZINESS; Start 08/14/18 at 17:15 Fish Oil (Fish Oil) 1,000 mg DAILY PO ; Start 08/15/18 at 09:00 Orphenadrine Citrate (Norflex Er) 100 mg PRN BID PRN PO MUSCLE SPASMS; Start 08/14/18 at 17:15 Polyethylene Glycol (miraLAX) 17 gm DAILY PO ; Start 08/15/18 at 09:00 Quetiapine Fumarate (SEROquel) 25 mg HS PO ; Start 08/14/18 at 21:00 Risperidone (RisperDAL) 1 mg BID PO ; Start 08/14/18 at 21:00 Coenzyme Q10 (Coenzyme Q10) 100 mg DAILY PO ; Start 08/15/18 at 09:00 Levothyroxine Sodium (Synthroid) 88 mcg DAILY06 PO ; Start 08/15/18 at 06:00 Budesonide (Pulmicort) 0.5 mg RTBID NEB ; Start 08/14/18 at 20:00 Active Scripts Active Reported Risperidone 1 Mg Tablet 1 Mg PO BID Zyprexa Zydis (Olanzapine) 5 Mg Tab.rapdis 2.5 Mg PO PRN Q2HR PRN Analgesic [place] (Methyl Salicylate/Menthol) 28 Gm Oint...g. 1 [place] TP PRN QID PRN Milk Of Magnesia (Magnesium Hydroxide) 2,400 Mg/10 Ml Oral.susp 2,400 Mg PO PRN QHS PRN [place] Liquid (Mag Hydrox/Al Hydrox/Simeth) 360 Ml Oral.susp 15 Ml PO PRN AFTMEALHC PRN Lorazepam 0.5 Mg Tablet 0.25 Mg PO PRN QID PRN [place] Carbonate 150 Mg Capsule 150 Mg PO DAILY Gabapentin 600 Mg Tablet 600 Mg PO QHS Depakote Sprinkle (Divalproex Sodium) 125 Mg Cap.sprink 500 Mg PO QHS Pulmicort (Budesonide) 0.5 Mg/2 Ml Ampul.neb 0.5 Mg NEB RTBID Albuterol Sulfate Neb Soln (Albuterol Sulfate) 2.5 Mg/3 Ml Vial.neb 2.5 Mg NEB RTQID Tylenol (Acetaminophen) 325 Mg Tablet 650 Mg PO PRN Q6HRS PRN [place] Carbonate 300 Mg Tablet 300 Mg PO HS Ipratropium [place] 30 Ml [place] 30 Ml NS BID Seroquel (Quetiapine Fumarate) 25 Mg Tablet 25 Mg PO QHS Tramadol Hcl (Tramadol HCl) 50 Mg Tablet 50 Mg PO PRN Q8HRS PRN Miralax (Polyethylene Glycol 3350) 17 Gm Powd.pack 1 Packet PO DAILY Orphenadrine Citrate 100 Mg Tablet.er 1 Tab PO PRN BID PRN Meclizine Hcl 25 Mg Tablet 12.5 Mg PO PRN TID PRN Levothyroxine Sodium 88 Mcg Tablet 88 Mcg PO DAILY06 Culturelle (Lactobacillus Rhamnosus Gg) 1 Each Cap.sprink 1 Each PO DAILY Mucinex (Guaifenesin) 600 Mg Tablet.er 1 Tab PO PRN BID PRN [place] 3 Fish Oil Softgel ([place]-3 Fatty Acids/Fish Oil) 1 Each Capsule.dr 1 Each PO DAILY PRN Ferrous Sulfate 325 Mg Tablet 325 Mg PO DAILY Coenzyme Q10 (Ubidecarenone) 100 Mg Capsule 100 Mg PO DAILY Vitamin D3 (Cholecalciferol (Vitamin D3)) 1,000 Unit Tablet 1 Tab PO DAILY Zyrtec (Cetirizine Hcl) 10 Mg Tablet 1 Tab PO PRN DAILY PRN Aspirin 81 Mg Tab.chew 81 Mg PO DAILY Ascorbic Acid 500 Mg Tablet 500 Mg PO DAILY I have reviewed the current psychotropics carefully including drug interactions. Risk benefit ratio favors no change other than as noted in my dictated progress note. Diagnosis: Problems: (1) Sepsis ZOFIA INFANTE MD Aug 14, 2018 19:31
[2018-08-14] MEDS: risperiDONE 1 MG TABLET. PO SCH (19:48)
[2018-08-14] MEDS: LITHIUM CARBONATE 300 MG TABLET PO SCH (19:48)
[2018-08-14] MEDS: GABAPENTIN 300 MG CAPSULE. PO SCH (19:48)
[2018-08-14] MEDS: DIVALPROEX 125 MG CAP.SPRINK PO SCH (19:48)
[2018-08-14] MEDS: LORazepam 0.5 MG TABLET PO PRN (19:48)
[2018-08-14] MEDS: QUEtiapine 25 MG TABLET. PO SCH (19:48)
[2018-08-14] MEDS: IPRATROPIUM BROMIDE 0.06% NASAL SPRAY 15ML BOTTLE NS SCH (19:57)
[2018-08-14] MEDS ORDERED: NON FORMULARY ITEM (Budesonide (Pulmicort) 0.5 MG) NEB SCH (20:00)
[2018-08-14 20:10] VITALS: BP 102/62
[2018-08-14] MEDS: BUDESONIDE 0.5 MG/2 ML NEBU NEB SCH (21:17)
[2018-08-14] MEDS: ALBUTEROL SULFATE 2.5 MG/3 ML NEBU. NEB SCH (21:17)
[2018-08-14 22:55] VITALS: BP 91/54
[2018-08-15] MEDS: LEVOTHYROXINE 88 MCG TABLET PO SCH (04:50)
[2018-08-15] MEDS: IV NORMAL SALINE 1,000ML 1,000 ML IV SCH ×2 (05:07→22:08)
[2018-08-15] MEDS: ALBUTEROL SULFATE 2.5 MG/3 ML NEBU. NEB SCH ×5 (05:30→20:30)
[2018-08-15 05:44] VITALS: BP 93/51
[2018-08-15 06:17] LABS: BASO # 0.1 x10^3/uL (0.0-0.2); BASO % 1 % (0-3); EOS # 0.2 x10^3/uL (0.0-0.7); EOS % 2 % (0-3); HEMATOCRIT 24.4 % (36.0-47.0); HEMOGLOBIN 8.2 g/dL (12.0-15.5); LYMPH # 1.3 x10^3/uL (1.0-4.8); LYMPH % 15 % (24-48); MEAN CORPUSCULAR HEMOGLOBIN 32 pg (25-35); MEAN CORPUSCULAR HGB CONC 34 g/dL (31-37); MEAN CORPUSCULAR VOLUME 94 fL (79-100); MONO % 12 % (0-9); NEUT # 6.2 x10^3uL (1.8-7.7); NEUT % 70 % (31-73); PLATELET COUNT 130 x10^3/uL (140-400); RED CELL DISTRIBUTION WIDTH 13.8 % (11.5-14.5); WHITE BLOOD COUNT 8.8 x10^3/uL (4.0-11.0)
[2018-08-15 06:43] LABS: ALBUMIN 1.8 g/dL (3.4-5.0); ALBUMIN/GLOBULIN RATIO 0.5 (1.0-1.7); CALCIUM 8.6 mg/dL (8.5-10.1); CREATININE 1.3 mg/dL (0.6-1.0); GFR 39.7; TOTAL BILIRUBIN 0.1 mg/dL (0.2-1.0); TOTAL PROTEIN 5.5 g/dL (6.4-8.2)
[2018-08-15] MEDS: ASCORBIC ACID 500 MG TABLET PO SCH (08:00)
[2018-08-15] MEDS: LACTOBACILLUS RHAMNOSUS GG 1 CAPSULE. PO SCH (08:00)
[2018-08-15] MEDS: risperiDONE 1 MG TABLET. PO SCH ×2 (08:00→20:30)
[2018-08-15] MEDS: ASPIRIN 81 MG TAB.CHEW PO SCH (08:00)
[2018-08-15] MEDS: BUDESONIDE 0.5 MG/2 ML NEBU NEB SCH ×3 (08:00→20:30)
[2018-08-15] MEDS: FERROUS SULFATE 325 MG TABLET. PO SCH (08:00)
[2018-08-15] MEDS: LITHIUM CARBONATE 300 MG TABLET PO SCH ×2 (08:00→20:30)
[2018-08-15] MEDS: UBIDECARENONE 50 MG CAPSULE. PO SCH (08:00)
[2018-08-15] MEDS: OMEGA-3 FATTY ACIDS/FISH OIL 1,000 MG CAPSULE. PO SCH (08:00)
[2018-08-15] MEDS: CHOLECALCIFEROL (VITAMIN D3) 1,000 UNIT TABLET PO SCH (08:00)
[2018-08-15] MEDS: POLYETHYLENE GLYCOL 3350 17 GM PACKET. PO SCH (08:01)
[2018-08-15] MEDS: IPRATROPIUM BROMIDE 0.06% NASAL SPRAY 15ML BOTTLE NS SCH ×2 (08:01→21:14)
[2018-08-15 09:08] VITALS: BP 100/58
[2018-08-15] MEDS: LORazepam 0.5 MG TABLET PO PRN ×2 (10:05→20:29)
[2018-08-15 11:10] VITALS: BP 103/57
[2018-08-15 14:53] VITALS: BP 111/58
--- NOTE | 2018-08-15 15:45 | HP ---
ADMIT DATE: 08/14/2018 HISTORY OF PRESENT ILLNESS: The patient is a 77-year-old female patient whom I have seen [facility] at the request of the nursing staff as she was more lethargic. Her white cell count is trending upward and she is also becoming more dehydrated and her BUN and creatinine is rising. Her BUN has risen from 35 to 50 and creatinine from 1.1 to 1.6 and she has also mild lactic acidosis and her urinalysis also showed that she has more than 40 wbc's and therefore, a decision was made to transfer her to [facility] for rehydration and treatment of sepsis and urinary tract infection. She was started on normal saline as well as IV Rocephin after obtaining the urine and blood culture. PAST MEDICAL HISTORY: Significant for anemia, bronchial asthma, hypertensive heart disease, chronic kidney disease stage 3, congestive heart failure, lung cancer, chronic back pain, COPD, hyperlipidemia, hypertension, hypothyroidism, lithium use, neuropathy, osteoarthritis, fibromyalgia and herniated disk. PAST SURGICAL HISTORY: Significant for left upper lobectomy for lung cancer. ALLERGIES: SHE IS ALLERGIC TO HALDOL, CIPROFLOXACIN, FUROSEMIDE, LEVOFLOXACIN, NONSTEROIDAL ANTI-INFLAMMATORY MEDICATION, RISPERIDONE, SELDANE, SULFONAMIDE, TIZANIDINE, PREDNISONE AND SULFONAMIDE SULFAMETHOXAZOLE. FAMILY HISTORY: Unobtainable. SOCIAL HISTORY: She apparently lives with her . 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 The patient has a high school education. She apparently was very active like dancing, spent time with her family. She has never had any legal problems. She has a daughter and grandchildren. MEDICATIONS: She is currently on following medications: She is on cetirizine 10 mg once a day, albuterol sulfate 2.5 mg by nebulizer 4 times a day, orphenadrine citrate 100 mg twice a day, ferrous sulfate 325 mg once a day, omega-3 fatty acids daily, aspirin 81 mg once a day, methyl salicylate analgesic balm, one application topically 4 times a day, tramadol 50 mg every 8 hours, acetaminophen 650 mg every 6 hours, divalproex sodium 500 mg at bedtime, gabapentin 600 mg at bedtime, olanzapine for Zyprexa 2.5 mg every 2 hours as needed, quetiapine fumarate 25 mg at bedtime, risperidone 1 mg twice a day, lorazepam 0.25 mg 4 times a day, lithium carbonate 300 mg at bedtime, lithium carbonate 150 mg p.o. daily, budesonide (Pulmicort) 0.5 mg by nebulizer twice a day, guaifenesin 600 mg twice a day, ipratropium bromide 30 mL spray, one spray twice a day, Maalox 15 mL after meals, milk of magnesia 30 mL p.o. daily p.r.n. for constipation, MiraLax 17 grams daily, meclizine 12.5 mg 3 times a day, lactobacillus rhamnosus 1 capsule twice a day, levothyroxine sodium 88 mcg daily, ascorbic acid 500 mg daily, Colecalciferol (vitamin D) 3000 international unit once a day, Coenzyme Q10 100 mg p.o. daily. PHYSICAL EXAMINATION: GENERAL: On arrival to [facility], the patient looked somewhat pale, cachectic, but no jaundice, cyanosis or thyromegaly. No jugular venous distension. No lower limb edema. VITAL SIGNS: Her heart rate was 59, blood pressure was 85/57, temperature was 98.6, respiratory rate was 18 and oxygen saturation was 96%. In fact, the patient was given half a liter of normal saline prior to transfer to [facility]. Her oxygen saturation was 97% on room air. HEAD, EYES, EARS, NOSE AND THROAT: Showed normocephalic, atraumatic. NECK: Supple. HEART: Showed normal first and second heart sounds with no gallop, rub or murmur. CHEST: Clear to auscultation. No crepitation or rhonchi. ABDOMEN: Distended, soft, nontender. No guarding or rigidity. No organomegaly. Hernial orifice intact. Bowel sounds are normal. NEUROLOGIC: She was awake, alert, very uncooperative and noncompliant. LABORATORY DATA: Her lab work showed that her serum sodium was 146, potassium 4.6, chloride 107, bicarbonate 28, anion gap of 11, BUN 50, creatinine 1.6, estimated GFR was ____ mL per minute. Her glucose 158, calcium was 9.4. Total bilirubin, AST, ALT, alkaline phosphatase were normal. Total protein 6.8, albumin was 2.8. Her lactic acid was slightly elevated at 2.3. Her urinalysis showed the urine was yellow, turbid with a pH of 7, specific gravity of 1.010. There was a trace of protein. The urine was negative for glucose, ketones, a small amount of blood, negative for nitrite. There was large amount of leukocyte esterase, 3-5 rbc's, more than 40 wbc's, and many bacteria. Her chest x-ray showed the patient has mild left lung base atelectasis or infiltrate, mild interstitial markings are of indeterminate age, but could be chronic. ASSESSMENT AND PLAN: The patient was transferred to [facility] and was started on IV Rocephin as well as IV fluid, continue with all his other medications. We will follow her closely and decide on further management accordingly. JOSE ALEJANDRO OWUSU MD DR: DEVON/caleb JOB#: [id number] / [id number]
[2018-08-15 19:47] VITALS: BP 110/70
[2018-08-15] MEDS: GABAPENTIN 300 MG CAPSULE. PO SCH (20:29)
--- NOTE | 2018-08-15 20:29 | PN ---
DATE: 08/15/2018 SUBJECTIVE: The patient is sitting slightly propped up in her recliner, in no apparent distress. She is definitely more awake, alert, continued to be very aggressive and noncompliant and uncooperative with care, unwilling to recognize that we are medical facility and that she only takes care. She has been to [facility] to follow all her health needs. PHYSICAL EXAMINATION: GENERAL: When I examined her; however, she looked well and was clearly in no apparent respiratory distress. She was pale, no jaundice, cyanosis, or thyromegaly. No jugular venous distension. No lower limb edema. VITAL SIGNS: Her heart rate was 70, blood pressure was 111/58, temperature was 97.4, respiratory rate 24, and oxygen saturation was 98% on 2 liters of oxygen. HEAD, EYES, EARS, NOSE AND THROAT: Normocephalic, atraumatic. NECK: Supple. HEART: Showed normal first and second heart sounds. No gallop, rub or murmur. CHEST: Clear to auscultation. No crepitation or rhonchi. ABDOMEN: Scaphoid, soft and nontender. NEUROLOGIC: She is definitely more awake, alert, although confused, agitated at times. All her cranial nerves are intact. She moves extremities without difficulty, although she is mostly bed bound. Her chest x-ray showed that the right lung is definitely hyperexpanded with mediastinal shift to the left. She has left upper lobectomy. LABORATORY DATA: Her lab work this morning showed a white cell count came down to 8800, hemoglobin 8.2, hematocrit 24, MCV 94 and platelet count of 130,000. Her chemistry showed a serum sodium 141, potassium 5, chloride 107, bicarbonate 27, anion gap of 44, BUN ____. Estimated GFR was 39 mL per minute. Her glucose was 154. Her lactic acid is down to 1. Her calcium was 8.6. Total bilirubin, AST, ALT, alkaline phosphatase were normal. Total protein was 5.5, albumin is ____. ASSESSMENT: 1. Dehydration. 2. Ylybp-az-rimorqt kidney injury. 3. Sepsis. 4. Lactic acidosis. 5. Urinary tract infection. PLAN: To continue the IV fluid, continue with IV Rocephin. We will obviously await the result of the urine culture and decide on further management accordingly. JOSE ALEJANDRO OWUSU MD DR: Royal JOB#: [id number] / [id number]
[2018-08-15] MEDS: DIVALPROEX 125 MG CAP.SPRINK PO SCH (20:30)
[2018-08-15] MEDS: QUEtiapine 25 MG TABLET. PO SCH (20:30)
[2018-08-15 22:51] VITALS: BP 103/70
[2018-08-16] MEDS: ALBUTEROL SULFATE 2.5 MG/3 ML NEBU. NEB SCH ×3 (05:23→16:32)
[2018-08-16 06:07] VITALS: BP 89/56
[2018-08-16] MEDS: LEVOTHYROXINE 88 MCG TABLET PO SCH (06:11)
[2018-08-16 07:36] LABS: CALCIUM 8.9 mg/dL (8.5-10.1); CREATININE 1.2 mg/dL (0.6-1.0); GFR 43.6; POTASSIUM 4.7 mmol/L (3.5-5.1)
[2018-08-16] MEDS: BUDESONIDE 0.5 MG/2 ML NEBU NEB SCH ×2 (08:00→10:52)
[2018-08-16] MEDS: ASCORBIC ACID 500 MG TABLET PO SCH (08:15)
[2018-08-16] MEDS: risperiDONE 1 MG TABLET. PO SCH (08:15)
[2018-08-16] MEDS: POLYETHYLENE GLYCOL 3350 17 GM PACKET. PO SCH (08:15)
[2018-08-16] MEDS: CHOLECALCIFEROL (VITAMIN D3) 1,000 UNIT TABLET PO SCH (08:15)
[2018-08-16] MEDS: OMEGA-3 FATTY ACIDS/FISH OIL 1,000 MG CAPSULE. PO SCH (08:15)
[2018-08-16] MEDS: IV NORMAL SALINE 1,000ML 1,000 ML IV SCH (08:15)
[2018-08-16] MEDS: LACTOBACILLUS RHAMNOSUS GG 1 CAPSULE. PO SCH (08:15)
[2018-08-16] MEDS: FERROUS SULFATE 325 MG TABLET. PO SCH (08:15)
[2018-08-16] MEDS: ASPIRIN 81 MG TAB.CHEW PO SCH (08:15)
[2018-08-16] MEDS: UBIDECARENONE 50 MG CAPSULE. PO SCH (08:16)
[2018-08-16] MEDS: LITHIUM CARBONATE 300 MG TABLET PO SCH (08:19)
[2018-08-16] MEDS: IPRATROPIUM BROMIDE 0.06% NASAL SPRAY 15ML BOTTLE NS SCH ×2 (08:43→09:00)
[2018-08-16 10:52] VITALS: BP 103/56
[2018-08-16] MEDS ORDERED: CEFD300C PO (14:01)
[2018-08-16 14:19] VITALS: BP 123/73
--- NOTE | 2018-08-16 19:37 | PN ---
DATE: 08/15/2018 PSYCHIATRIC PROGRESS NOTE This late entry 08/15/2018 covers elements not covered in my initial note 08/15/2018. SUBJECTIVE: I met with the patient in her room 124, [facility], for psychiatric followup requested by Dr. Ray after the patient was transferred from the [facility] to [address] [place] [address] Medical/Surgical floor for treatment of UTI and sepsis, which developed while she was on the [facility] being stabilized for her bipolar disorder with psychotic features. The patient seen individually, discussed with nursing staff, reviewed the chart. Per nursing report, the patient has been somewhat grandiose, dismissive of nursing staff, at times refusing some of her medications, but medically she seems to be stabilizing responding to treatment for her sepsis. She remains somewhat irritable, confused. She has not been aggressive; however. No CV, , pulmonary, eye system symptoms on review. Ambulation impaired. MENTAL STATUS EXAM: Oriented to herself and situation. Speech has some latency, often responses monosyllabic. Abstraction fair, computation impaired, language function intact. Mood and affect remain somewhat labile, dismissive, irritable at times, but improved. LABORATORY DATA: Reviewed. IMPRESSION: Bipolar 1 disorder, mixed with psychotic features; anxiety disorder, unspecified. Rest unchanged. PLAN: No change from a psychiatric standpoint. I have reviewed her current psychotropics mentioned in my initial note and we will continue these unchanged for now. MAN Nam INFANTE MD DR: CASTILLO/caleb JOB#: [id number] / [id number]
--- NOTE | 2018-08-18 21:49 | PDOC ---
Exam Note: Alessandro Note: Please also refer to the separate dictated note~for this date of service dictated separately.~Patient seen individually. Discussed the patient with Nursing staff reviewed the chart.~Reviewed interim history and current functioning. Reviewed vital signs,~Labs/ Radiology~and current medications noted below. Continue current treatment with the changes noted in the dictated addendum note. late entry for 08/15/18 Assessment: Vital Signs: VS - Last 72 Hours, by Label Date Time Temp Pulse Resp B/P (MAP) Pulse Ox O2 Delivery O2 Flow Rate FiO2 08/16/18 14:19 97.6 71 24 123/73 (90) 92 Room Air 08/16/18 10:52 97.8 84 24 103/56 (72) 92 Room Air 08/16/18 08:00 Room Air 08/16/18 06:07 97.6 62 20 89/56 (67) 93 Room Air 08/16/18 05:24 96 Room Air 08/15/18 22:51 97.8 61 28 103/70 (81) 95 Room Air Vital Signs Date Time Temp Pulse Resp B/P (MAP) Pulse Ox O2 Delivery O2 Flow Rate FiO2 08/16/18 14:19 97.6 71 24 123/73 (90) 92 Room Air 08/15/18 14:53 2.0 Current Medications: Meds: Current Medications Albuterol/ Ipratropium (Duoneb) 3 ml STK-MED ONCE .ROUTE Last administered on 08/14/18at 15:53; Start 08/14/18 at 15:53; Stop 08/14/18 at 15:54; Status DC Sodium Chloride 1,000 ml @ 75 mls/hr [id number] IV Last administered on at 22:08; Start 08/14/18 at 16:15; Stop 08/16/18 at 18:10; Status DC Ceftriaxone Sodium 1 gm/ Sodium Chloride 50 ml @ 100 mls/hr Q24H IV Last administered on 08/15/18at 17:49; Start 08/14/18 at 17:00; Stop 08/16/18 at 18 :10; Status DC Acetaminophen (Tylenol) 650 mg PRN Q6HRS PRN PO pain/temp; Start 08/14/18 at 16:15; Stop 08/16/18 at 18:10; Status DC Albuterol Sulfate (Ventolin) 2.5 mg RTQID NEB Last administered on 08/16/18at 05:23; Start 08/14/18 at 20:00; Stop 08/16/18 at 18:10; Status DC Ascorbic Acid (Vitamin C) 500 mg DAILY PO Last administered on 08/16/18at 08:15 ; Start 08/15/18 at 09:00; Stop 08/16/18 at 18:10; Status DC Vitamin D (Vitamin D3) 1,000 unit DAILY PO Last administered on 08/16/18at 08: 15; Start 08/15/18 at 09:00; Stop 08/16/18 at 18:10; Status DC Ferrous Sulfate (Feosol) 325 mg DAILY PO Last administered on 08/16/18at 08:15 ; Start 08/15/18 at 09:00; Stop 08/16/18 at 18:10; Status DC Guaifenesin (Mucinex Er) 600 mg PRN BID PRN PO COUGH; Start 08/14/18 at 16:15 ; Stop 08/16/18 at 18:10; Status DC Lactobacillus Rhamnosus (Culturelle) 1 cap DAILY PO Last administered on at 08:15; Start 08/15/18 at 09:00; Stop 08/16/18 at 18:10; Status DC Multi-Ingredient Ointment (Analgesic [place]) 1 santosh PRN QID PRN TP muscle pain; Start 08/14/18 at 16:15; Stop 08/16/18 at 18:10; Status DC Olanzapine (ZyPREXA ZYDIS) 2.5 mg PRN Q2HR PRN PO ANXIETY / AGITATION; Start 08/14/18 at 16:15; Stop 08/16/18 at 18:10; Status DC Tramadol HCl (Ultram) 50 mg PRN Q8HRS PRN PO PAIN; Start 08/14/18 at 16:15; Stop 08/16/18 at 18:10; Status DC Aspirin (Children'S Aspirin) 81 mg DAILYWBKFT PO Last administered on at 08:15; Start 08/15/18 at 08:00; Stop 08/16/18 at 18:10; Status DC Non-Formulary Medication (Budesonide (Pulmicort)) 0.5 mg RTBID NEB ; Start at 20:00; Status UNV Cetirizine HCl (ZyrTEC) 10 mg PRN DAILY PRN PO ALLERGIES; Start 08/14/18 at 16 :45; Stop 08/16/18 at 18:10; Status DC Divalproex Sodium (Depakote Sprinkles) 500 mg HS PO Last administered on at 20:30; Start 08/14/18 at 21:00; Stop 08/16/18 at 18:10; Status DC Gabapentin (Neurontin) 600 mg HS PO Last administered on 08/15/18at 20:29; Start 08/14/18 at 21:00; Stop 08/16/18 at 18:10; Status DC Ipratropium [place] (Atrovent Nasal) 2 spray BID NS Last administered on at 21:14; Start 08/14/18 at 21:00; Stop 08/16/18 at 18:10; Status DC [place] Carbonate 150 mg DAILY PO Last administered on 08/16/18at 08:19; Start 08/15/18 at 09:00; Stop 08/16/18 at 18:10; Status DC [place] Carbonate 300 mg HS PO Last administered on 08/15/18at 20:30; Start at 21:00; Stop 08/16/18 at 18:10; Status DC Lorazepam (Ativan) 0.25 mg PRN QID PRN PO ANXIETY / AGITATION Last administered on 08/15/18at 20:29; Start 08/14/18 at 17:00; Stop 08/16/18 at 18 :10; Status DC Al Hydroxide/Mg Hydroxide (Mylanta Plus Xs) 15 ml PRN AFTMEALHC PRN PO DYSPEPSIA; Start 08/14/18 at 17:00; Stop 08/16/18 at 18:10; Status DC Magnesium Hydroxide (Milk Of Magnesia) 2,400 mg PRN QHS PRN PO CONSTIPATION; Start 08/14/18 at 17:00; Stop 08/16/18 at 18:10; Status DC Meclizine HCl (Antivert) 12.5 mg PRN TID PRN PO DIZZINESS; Start 08/14/18 at 17:15; Stop 08/16/18 at 18:10; Status DC Fish Oil (Fish Oil) 1,000 mg DAILY PO Last administered on 08/16/18at 08:15; Start 08/15/18 at 09:00; Stop 08/16/18 at 18:10; Status DC Orphenadrine Citrate (Norflex Er) 100 mg PRN BID PRN PO MUSCLE SPASMS; Start 08/14/18 at 17:15; Stop 08/16/18 at 18:10; Status DC Polyethylene Glycol (miraLAX) 17 gm DAILY PO Last administered on 08/16/18at 08 :15; Start 08/15/18 at 09:00; Stop 08/16/18 at 18:10; Status DC Quetiapine Fumarate (SEROquel) 25 mg HS PO Last administered on 08/15/18at 20: 30; Start 08/14/18 at 21:00; Stop 08/16/18 at 18:10; Status DC Risperidone (RisperDAL) 1 mg BID PO Last administered on 08/16/18at 08:15; Start 08/14/18 at 21:00; Stop 08/16/18 at 18:10; Status DC Coenzyme Q10 (Coenzyme Q10) 100 mg DAILY PO Last administered on 08/16/18at 08: 16; Start 08/15/18 at 09:00; Stop 08/16/18 at 18:10; Status DC Levothyroxine Sodium (Synthroid) 88 mcg DAILY06 PO Last administered on at 06:11; Start 08/15/18 at 06:00; Stop 08/16/18 at 18:10; Status DC Budesonide (Pulmicort) 0.5 mg RTBID NEB Last administered on 08/14/18at 21:17; Start 08/14/18 at 20:00; Stop 08/16/18 at 18:10; Status DC Active Scripts Active Cefdinir 300 Mg Capsule 1 Cap PO BID 5 Days Reported Risperidone 1 Mg Tablet 1 Mg PO BID Zyprexa Zydis (Olanzapine) 5 Mg Tab.rapdis 2.5 Mg PO PRN Q2HR PRN Analgesic [place] (Methyl Salicylate/Menthol) 28 Gm Oint...g. 1 [place] TP PRN QID PRN Milk Of Magnesia (Magnesium Hydroxide) 2,400 Mg/10 Ml Oral.susp 2,400 Mg PO PRN QHS PRN [place] Liquid (Mag Hydrox/Al Hydrox/Simeth) 360 Ml Oral.susp 15 Ml PO PRN AFTMEALHC PRN Lorazepam 0.5 Mg Tablet 0.25 Mg PO PRN QID PRN [place] Carbonate 150 Mg Capsule 150 Mg PO DAILY Gabapentin 600 Mg Tablet 600 Mg PO QHS Depakote Sprinkle (Divalproex Sodium) 125 Mg Cap.sprink 500 Mg PO QHS Pulmicort (Budesonide) 0.5 Mg/2 Ml Ampul.neb 0.5 Mg NEB RTBID Albuterol Sulfate Neb Soln (Albuterol Sulfate) 2.5 Mg/3 Ml Vial.neb 2.5 Mg NEB RTQID Tylenol (Acetaminophen) 325 Mg Tablet 650 Mg PO PRN Q6HRS PRN [place] Carbonate 300 Mg Tablet 300 Mg PO HS Ipratropium [place] 30 Ml [place] 30 Ml NS BID Seroquel (Quetiapine Fumarate) 25 Mg Tablet 25 Mg PO QHS Tramadol Hcl (Tramadol HCl) 50 Mg Tablet 50 Mg PO PRN Q8HRS PRN Miralax (Polyethylene Glycol 3350) 17 Gm Powd.pack 1 Packet PO DAILY Orphenadrine Citrate 100 Mg Tablet.er 1 Tab PO PRN BID PRN Meclizine Hcl 25 Mg Tablet 12.5 Mg PO PRN TID PRN Levothyroxine Sodium 88 Mcg Tablet 88 Mcg PO DAILY06 Culturelle (Lactobacillus Rhamnosus Gg) 1 Each Cap.sprink 1 Each PO DAILY Mucinex (Guaifenesin) 600 Mg Tablet.er 1 Tab PO PRN BID PRN [place] 3 Fish Oil Softgel ([place]-3 Fatty Acids/Fish Oil) 1 Each Capsule.dr 1 Each PO DAILY PRN Ferrous Sulfate 325 Mg Tablet 325 Mg PO DAILY Coenzyme Q10 (Ubidecarenone) 100 Mg Capsule 100 Mg PO DAILY Vitamin D3 (Cholecalciferol (Vitamin D3)) 1,000 Unit Tablet 1 Tab PO DAILY Zyrtec (Cetirizine Hcl) 10 Mg Tablet 1 Tab PO PRN DAILY PRN Aspirin 81 Mg Tab.chew 81 Mg PO DAILY Ascorbic Acid 500 Mg Tablet 500 Mg PO DAILY I have reviewed the current psychotropics carefully including drug interactions. Risk benefit ratio favors no change other than as noted in my dictated progress note. Diagnosis: Problems: (1) Psychosis, atypical (2) Bipolar disorder (3) Impulse control disorder (4) Bipolar affective, mixed, sev w/ psych (5) Anxiety disorder ZOFIA INFANTE MD Aug 18, 2018 21:49
== END 2018-08-16 18:08 | disposition short-term general hospital (02) | DRG 871 ==
LOC: 1 SOUTH 15:51
PROVIDERS: ADMIT Internal Medicine; ATTEND Internal Medicine
DX: A41.9 Sepsis, unspecified organism (principal); E43 Unspecified severe protein-calorie malnutrition; N17.9 Acute kidney failure, unspecified; F31.60 Bipolar disorder, current episode mixed, unspecified; I13.0 Hypertensive heart and chronic kidney disease with heart failure and stage 1 through stage 4 chronic kidney disease, or unspecified chronic kidney disease; N39.0 Urinary tract infection, site not specified; E03.9 Hypothyroidism, unspecified; E78.5 Hyperlipidemia, unspecified; E86.0 Dehydration; F29 Unspecified psychosis not due to a substance or known physiological condition; F41.9 Anxiety disorder, unspecified; F63.9 Impulse disorder, unspecified; I50.9 Heart failure, unspecified; J45.909 Unspecified asthma, uncomplicated; M79.7 Fibromyalgia; N18.3 Chronic kidney disease, stage 3 (moderate); Z85.118 Personal history of other malignant neoplasm of bronchus and lung; Z91.19 Patient's noncompliance with other medical treatment and regimen; D64.9 Anemia, unspecified; G89.29 Other chronic pain
CPT/HCPCS: 36415; 80048; 80053; 83605; 85025; 87040; 87641; 94640; J0696; J7613; J7620; J7626; J7030

== ENCOUNTER 2018-08-16 18:14 | Inpatient (IN) | payer BC ==
[~2018-08-16] VITALS: Ht 162.6 cm; Wt 57.2 kg
[~2018-08-16 18:14] MED LIST changes: +CEFD300C PO
--- NOTE | 2018-08-16 18:25 | NUR ---
Admission Note with Justification for Admission to [facility] Patient admitted to [facility] for protective oversight for emergency stabilization of acute psychiatric crisis. Pt admitted from: Hospital [address] [place] [address] where she had been for Urinary Sepsis Mode of arrival: Broda chair Accompanied By: [facility] Staff-OUTSIDE SALES CONSULTANT from [facility] Precipitating behaviors that initiated intake and admission: it is reported that patient is verbally abusive to staff, delusional, refusing cares, she currently believes she is in a movie. She has also been noted to be paranoid. Description of failure of out patient attempts at stabilization in previous setting list behavior and medication trials: Patient was on SB prior to going to [address] [place] [address] for urinary sepsis. She had medications changes and was followed by Dr. Newsome for psychiatry. She has a personal psychiatrist as well. Behaviors and assessment findings upon admission: She arrived after dinner. She is in a Broda Chair related to unsteady gait. She was talking, alert to self only. Pleasant and cooperative upon arrival. Vital signs obtained, belongings inventoried and patient was made comfortable in the day room. Skin is good with no impaired areas. Plan: Admit for protective oversight for adjustment and stabilization of medications, behaviors and mood. Intense treatment regimen including groups, medication adjustments, therapy, consistent regimen for ADL's, self care, and sleep hygiene. Daily monitoring by Inpatient staff, Psychiatry, and Medical Physician.
[2018-08-16] MEDS ORDERED: traMADol 50 MG TABLET PO PRN (19:00)
[2018-08-16] MEDS ORDERED: METHYL SALICYLATE/MENTHOL TOPICAL OINTMENT 29GM TUBE. TP PRN (19:00)
[2018-08-16] MEDS ORDERED: ACETAMINOPHEN 325 MG TABLET PO PRN (19:00)
[2018-08-16] MEDS: ALBUTEROL SULFATE 2.5 MG/3 ML NEBU. NEB SCH (20:00)
[2018-08-16] MEDS ORDERED: NON FORMULARY ITEM (Budesonide (Pulmicort) 0.5 MG) NEB SCH (20:00)
[2018-08-16] MEDS ORDERED: MECLIZINE 12.5 MG TABLET. PO PRN (20:15)
[2018-08-16] MEDS ORDERED: MAGNESIUM HYDROXIDE 2,400 MG/30 ML ORAL.SUSP. PO PRN (20:15)
[2018-08-16] MEDS ORDERED: MAG HYDROX/AL HYDROX/SIMETH 30 ML ORAL.SUSP PO PRN (20:15)
[2018-08-16] MEDS ORDERED: LORazepam 0.5 MG TABLET PO PRN (20:15)
[2018-08-16] MEDS ORDERED: ORPHENADRINE ER 100 MG TABLET.ER PO PRN (20:15)
[2018-08-16] MEDS: GABAPENTIN 300 MG CAPSULE. PO SCH (20:48)
[2018-08-16] MEDS: DIVALPROEX 125 MG CAP.SPRINK PO SCH (20:48)
[2018-08-16] MEDS: QUEtiapine 25 MG TABLET. PO SCH (20:48)
[2018-08-16] MEDS: LITHIUM CARBONATE 300 MG TABLET PO SCH (20:48)
[2018-08-16] MEDS: risperiDONE 1 MG TABLET. PO SCH (20:48)
[2018-08-16] MEDS: IPRATROPIUM BROMIDE 0.06% NASAL SPRAY 15ML BOTTLE NS SCH (20:48)
[2018-08-16] MEDS ORDERED: CEFDINIR 300 MG CAPSULE PO SCH (21:00)
[2018-08-16] MEDS: CEFDINIR 300 MG CAPSULE PO SCH (21:10)
--- NOTE | 2018-08-16 22:51 | PDOC ---
Exam Note: Alessandro Note: Please also refer to the separate dictated note~for this date of service dictated separately. Discussed the patient with Nursing staff reviewed the chart.~Reviewed interim history and current functioning. Reviewed vital signs,~ Labs/ Radiology~and current medications noted below. Continue current treatment with the changes noted in the dictated addendum note Current Medications: Meds: Current Medications Cefdinir (Omnicef) 300 mg BID PO Last administered on 08/16/18at 21:10; Start 08/16/18 at 21:00; Stop 08/21/18 at 21:00 Acetaminophen (Tylenol) 650 mg PRN Q6HRS PRN PO pain/temp; Start 08/16/18 at 19:00 Albuterol Sulfate (Ventolin) 2.5 mg RTQID NEB ; Start 08/16/18 at 20:00 Ascorbic Acid (Vitamin C) 500 mg DAILY PO ; Start 08/17/18 at 09:00 Cefdinir (Omnicef) 300 mg BID PO ; Start 08/16/18 at 21:00; Stop 08/16/18 at 21:00; Status DC Vitamin D (Vitamin D3) 1,000 unit DAILY PO ; Start 08/17/18 at 09:00 Ferrous Sulfate (Feosol) 325 mg DAILY PO ; Start 08/17/18 at 09:00 Guaifenesin (Mucinex Er) 600 mg PRN BID PRN PO COUGH; Start 08/16/18 at 19:00 Lactobacillus Rhamnosus (Culturelle) 1 cap DAILY PO ; Start 08/17/18 at 09:00 Levothyroxine Sodium (Synthroid) 88 mcg DAILY06 PO ; Start 08/17/18 at 06:00 Multi-Ingredient Ointment (Analgesic Murphys) 1 santosh PRN QID PRN TP muscle pain; Start 08/16/18 at 19:00 Olanzapine (ZyPREXA ZYDIS) 2.5 mg PRN Q2HR PRN PO ANXIETY / AGITATION; Start 08/16/18 at 19:00 Tramadol HCl (Ultram) 50 mg PRN Q8HRS PRN PO PAIN; Start 08/16/18 at 19:00 Aspirin (Children'S Aspirin) 81 mg DAILYWBKFT PO ; Start 08/17/18 at 08:00 Non-Formulary Medication (Budesonide (Pulmicort)) 0.5 mg RTBID NEB ; Start at 20:00; Status UNV Cetirizine HCl (ZyrTEC) 10 mg PRN DAILY PRN PO ALLERGIES; Start 08/17/18 at 09 :00 Divalproex Sodium (Depakote Sprinkles) 500 mg QHS PO Last administered on 08/16at 20:48; Start 08/16/18 at 21:00 Gabapentin (Neurontin) 600 mg QHS PO Last administered on 08/16/18at 20:48; Start 08/16/18 at 21:00 Ipratropium [place] (Atrovent Nasal) 2 spray BID NS ; Start 08/16/18 at 21:00 [place] Carbonate 150 mg DAILY PO ; Start 08/17/18 at 09:00 [place] Carbonate 300 mg QHS PO Last administered on 08/16/18at 20:48; Start 08/16/18 at 21:00 Lorazepam (Ativan) 0.25 mg PRN QID PRN PO ANXIETY / AGITATION; Start 08/16/18 at 20:15 Al Hydroxide/Mg Hydroxide (Mylanta Plus Xs) 30 ml PRN AFTMEALHC PRN PO DYSPEPSIA; Start 08/16/18 at 20:15 Magnesium Hydroxide (Milk Of Magnesia) 2,400 mg PRN QHS PRN PO CONSTIPATION; Start 08/16/18 at 20:15 Meclizine HCl (Antivert) 12.5 mg PRN TID PRN PO DIZZINESS; Start 08/16/18 at 20:15 Fish Oil (Fish Oil) 1,000 mg DAILY PO ; Start 08/17/18 at 09:00 Orphenadrine Citrate (Norflex Er) 100 mg PRN BID PRN PO MUSCLE SPASMS; Start 08/16/18 at 20:15 Polyethylene Glycol (miraLAX) 17 gm DAILY PO ; Start 08/17/18 at 09:00 Quetiapine Fumarate (SEROquel) 25 mg QHS PO Last administered on 08/16/18at 20: 48; Start 08/16/18 at 21:00 Risperidone (RisperDAL) 1 mg BID PO Last administered on 08/16/18at 20:48; Start 08/16/18 at 21:00 Coenzyme Q10 (Coenzyme Q10) 100 mg DAILY PO ; Start 08/17/18 at 09:00 Budesonide (Pulmicort) 0.5 mg RTBID NEB ; Start 08/17/18 at 08:00 Active Scripts Active Cefdinir 300 Mg Capsule 1 Cap PO BID 5 Days Reported Risperidone 1 Mg Tablet 1 Mg PO BID Zyprexa Zydis (Olanzapine) 5 Mg Tab.rapdis 2.5 Mg PO PRN Q2HR PRN Analgesic [place] (Methyl Salicylate/Menthol) 28 Gm Oint...g. 1 Santosh TP PRN QID PRN Milk Of Magnesia (Magnesium Hydroxide) 2,400 Mg/10 Ml Oral.susp 2,400 Mg PO PRN QHS PRN [place] Liquid (Mag Hydrox/Al Hydrox/Simeth) 360 Ml Oral.susp 15 Ml PO PRN AFTMEALHC PRN Lorazepam 0.5 Mg Tablet 0.25 Mg PO PRN QID PRN [place] Carbonate 150 Mg Capsule 150 Mg PO DAILY Gabapentin 600 Mg Tablet 600 Mg PO QHS Depakote Sprinkle (Divalproex Sodium) 125 Mg Cap.sprink 500 Mg PO QHS Pulmicort (Budesonide) 0.5 Mg/2 Ml Ampul.neb 0.5 Mg NEB RTBID Albuterol Sulfate Neb Soln (Albuterol Sulfate) 2.5 Mg/3 Ml Vial.neb 2.5 Mg NEB RTQID Tylenol (Acetaminophen) 325 Mg Tablet 650 Mg PO PRN Q6HRS PRN [place] Carbonate 300 Mg Tablet 300 Mg PO HS Ipratropium [place] 30 Ml [place] 30 Ml NS BID Seroquel (Quetiapine Fumarate) 25 Mg Tablet 25 Mg PO QHS Tramadol Hcl (Tramadol HCl) 50 Mg Tablet 50 Mg PO PRN Q8HRS PRN Miralax (Polyethylene Glycol 3350) 17 Gm Powd.pack 1 Packet PO DAILY Orphenadrine Citrate 100 Mg Tablet.er 1 Tab PO PRN BID PRN Meclizine Hcl 25 Mg Tablet 12.5 Mg PO PRN TID PRN Levothyroxine Sodium 88 Mcg Tablet 88 Mcg PO DAILY06 Culturelle (Lactobacillus Rhamnosus Gg) 1 Each Cap.sprink 1 Each PO DAILY Mucinex (Guaifenesin) 600 Mg Tablet.er 1 Tab PO PRN BID PRN [place] 3 Fish Oil Softgel ([place]-3 Fatty Acids/Fish Oil) 1 Each Capsule.dr 1 Each PO DAILY PRN Ferrous Sulfate 325 Mg Tablet 325 Mg PO DAILY Coenzyme Q10 (Ubidecarenone) 100 Mg Capsule 100 Mg PO DAILY Vitamin D3 (Cholecalciferol (Vitamin D3)) 1,000 Unit Tablet 1 Tab PO DAILY Zyrtec (Cetirizine Hcl) 10 Mg Tablet 1 Tab PO PRN DAILY PRN Aspirin 81 Mg Tab.chew 81 Mg PO DAILY Ascorbic Acid 500 Mg Tablet 500 Mg PO DAILY I have reviewed the current psychotropics carefully including drug interactions. Risk benefit ratio favors no change other than as noted in my dictated progress note. Diagnosis: Problems: (1) Anxiety disorder (2) Sepsis (3) Urinary tract infection (4) Bipolar affective, mixed, sev w/ psych (5) Dehydration (6) Impulse control disorder (7) Bipolar disorder (8) Psychosis, atypical ZOFIA INFANTE MD Aug 16, 2018 22:51
[2018-08-17 00:15] VITALS: BP 106/56
--- NOTE | 2018-08-17 00:18 | NUR ---
Pt sitting up in Broda chair at shift change. Pt A/O to self, , delusional, snarky, and verbally abusive towards staff. Pt non-compliant with medications but cooperative with assessment. Medications crushed and hidden in Boost which pt consumed.
[2018-08-17] MEDS: LEVOTHYROXINE 88 MCG TABLET PO SCH (04:58)
[2018-08-17] MEDS: ALBUTEROL SULFATE 2.5 MG/3 ML NEBU. NEB SCH ×4 (05:11→20:00)
[2018-08-17 06:35] VITALS: BP 120/74
[2018-08-17] MEDS: CEFDINIR 300 MG CAPSULE PO SCH (07:48)
[2018-08-17] MEDS: risperiDONE 1 MG TABLET. PO SCH ×2 (07:48→19:41)
[2018-08-17] MEDS: OMEGA-3 FATTY ACIDS/FISH OIL 1,000 MG CAPSULE. PO SCH (07:52)
[2018-08-17] MEDS: UBIDECARENONE 50 MG CAPSULE. PO SCH (07:52)
[2018-08-17] MEDS: ASPIRIN 81 MG TAB.CHEW PO SCH (07:53)
[2018-08-17] MEDS: POLYETHYLENE GLYCOL 3350 17 GM PACKET. PO SCH (07:53)
[2018-08-17] MEDS: CHOLECALCIFEROL (VITAMIN D3) 1,000 UNIT TABLET PO SCH (07:53)
[2018-08-17] MEDS: FERROUS SULFATE 325 MG TABLET. PO SCH (07:53)
[2018-08-17] MEDS: ASCORBIC ACID 500 MG TABLET PO SCH (07:53)
[2018-08-17] MEDS: LACTOBACILLUS RHAMNOSUS GG 1 CAPSULE. PO SCH (07:53)
[2018-08-17] MEDS: IPRATROPIUM BROMIDE 0.06% NASAL SPRAY 15ML BOTTLE NS SCH (07:55)
[2018-08-17] MEDS: LITHIUM CARBONATE 300 MG TABLET PO SCH ×2 (07:56→19:41)
[2018-08-17] MEDS: BUDESONIDE 0.5 MG/2 ML NEBU NEB SCH ×2 (08:00→20:00)
[2018-08-17] MEDS ORDERED: CETIRIZINE HCL 10 MG TABLET PO PRN (09:00)
--- NOTE | 2018-08-17 11:01 | NUR ---
Behavior Intervention Response and Plan: BIRP Note: Behavior: Assumed Care of patient, patient located in Dining Room at shift change. Patient exhibited the following behavior Restless, Demanding, Irritable. Brief assessment on rounds of vital signs, medication needs, lab studies, and pain. Treatment plan problems . Intervention: Patient assessed and the following interventions initiated safety checks 15 Minute Checks Cognitive Assessment , Head to toe Assessment , Medications. Response: After interactions and interventions patient responded in the following manner, Restless , Attention Seeking ,Disorganized. Continue to assess behaviors and condition will continue to monitor throughout the shift as needed. Patient educated on ADL's, and hand hygiene. 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 Continue to assess patient for changes in above assessment. Monitor for medication needs, pain, and safety concerns. Hourly rounding performed to ensure safe environment.
[2018-08-17] MEDS ORDERED: IPRATROPIUM BROMIDE 0.06% NASAL SPRAY 15ML BOTTLE NS PRN (14:30)
[2018-08-17 16:25] VITALS: BP 98/64
--- NOTE | 2018-08-17 17:18 | NUR ---
pt up in broda for meals. attention seeking and demanding at times. meds taken hidden in boost. dr tripp to see. pt more soa. Sats 94-95% RA. New orders received.
--- NOTE | 2018-08-17 17:49 | RAD ---
AP chest. HISTORY: Short of breath AP view was taken of the chest. Comparison is made with a study from August 14. Patient's had a previous left thoracotomy. Heart is upper normal in size. Right lung is clear. There is mild atelectasis or infiltrate in the left lung base. Scarring is possible. PA and lateral views would be of benefit. IMPRESSION: 1. Previous left thoracotomy. 2. Mild left base atelectasis or infiltrate. Electronically signed by: Rufus Breaux MD (08/17/2018 5:45 PM) [id number]
[2018-08-17 19:06] LABS: BASO % 0 % (0-3); EOS # 0.2 x10^3/uL (0.0-0.7); EOS % 3 % (0-3); HEMATOCRIT 29.1 % (36.0-47.0); HEMOGLOBIN 9.4 g/dL (12.0-15.5); LYMPH # 1.4 x10^3/uL (1.0-4.8); LYMPH % 19 % (24-48); MEAN CORPUSCULAR HEMOGLOBIN 31 pg (25-35); MEAN CORPUSCULAR HGB CONC 32 g/dL (31-37); MEAN CORPUSCULAR VOLUME 96 fL (79-100); MONO # 0.9 x10^3/uL (0.0-1.1); MONO % 11 % (0-9); NEUT # 5.1 x10^3uL (1.8-7.7); NEUT % 67 % (31-73); PLATELET COUNT 166 x10^3/uL (140-400); RED BLOOD COUNT 3.02 x10^6/uL (3.50-5.40); RED CELL DISTRIBUTION WIDTH 14.3 % (11.5-14.5); WHITE BLOOD COUNT 7.6 x10^3/uL (4.0-11.0)
[2018-08-17 19:18] LABS: ALBUMIN 2.2 g/dL (3.4-5.0); ALBUMIN/GLOBULIN RATIO 0.5 (1.0-1.7); CALCIUM 8.8 mg/dL (8.5-10.1); CREATININE 1.2 mg/dL (0.6-1.0); GFR 43.6; POTASSIUM 4.4 mmol/L (3.5-5.1); TOTAL BILIRUBIN 0.1 mg/dL (0.2-1.0); TOTAL PROTEIN 6.5 g/dL (6.4-8.2)
[2018-08-17] MEDS: DIVALPROEX 125 MG CAP.SPRINK PO SCH (19:40)
[2018-08-17] MEDS: QUEtiapine 25 MG TABLET. PO SCH (19:41)
[2018-08-17] MEDS: GABAPENTIN 300 MG CAPSULE. PO SCH (19:41)
[2018-08-17] MEDS: AMOXICILLIN/K CLAV 500/125MG TABLET. PO SCH (19:42)
--- NOTE | 2018-08-17 20:00 | NUR ---
Dr. Ray notified of pt lab results and elevated D-Dimer. New orders received and processed.
[2018-08-17] MEDS: ENOXAPARIN ** NOTE DOSE ** SYRINGE SQ SCH (20:28)
--- NOTE | 2018-08-17 22:13 | PDOC ---
Exam Note: Alessandor Note: Please also refer to the separate dictated note~for this date of service dictated separately.~Patient seen individually. Discussed the patient with Nursing staff reviewed the chart.~Reviewed interim history and current functioning. Reviewed vital signs,~Labs/ Radiology~and current medications noted below. Continue current treatment with the changes noted in the dictated addendum note Assessment: Vital Signs: Vital Signs Date Time Temp Pulse Resp B/P (MAP) Pulse Ox O2 Delivery O2 Flow Rate FiO2 08/17/18 16:25 98.0 69 20 98/64 (75) 97 08/17/18 05:10 Room Air Labs: Laboratory Tests Test 08/17/18 18:30 White Blood Count 7.6 x10^3/uL (4.0-11.0) Red Blood Count 3.02 x10^6/uL (3.50-5.40) L Hemoglobin 9.4 g/dL (12.0-15.5) L Hematocrit 29.1 % (36.0-47.0) L Mean Corpuscular Volume 96 fL (79-100) Mean Corpuscular Hemoglobin 31 pg (25-35) Mean Corpuscular Hemoglobin Concent 32 g/dL (31-37) Red Cell Distribution Width 14.3 % (11.5-14.5) Platelet Count 166 x10^3/uL (140-400) Neutrophils (%) (Auto) 67 % (31-73) Lymphocytes (%) (Auto) 19 % (24-48) L Monocytes (%) (Auto) 11 % (0-9) H Eosinophils (%) (Auto) 3 % (0-3) Basophils (%) (Auto) 0 % (0-3) Neutrophils # (Auto) 5.1 x10^3uL (1.8-7.7) Lymphocytes # (Auto) 1.4 x10^3/uL (1.0-4.8) Monocytes # (Auto) 0.9 x10^3/uL (0.0-1.1) Eosinophils # (Auto) 0.2 x10^3/uL (0.0-0.7) Basophils # (Auto) 0.0 x10^3/uL (0.0-0.2) D-Dimer (Chiara) 6.23 mg/L (0.00-0.50) H Sodium Level 141 mmol/L (136-145) Potassium Level 4.4 mmol/L (3.5-5.1) Chloride Level 105 mmol/L (98-107) Carbon Dioxide Level 27 mmol/L (21-32) Anion Gap 9 (6-14) Blood Urea Nitrogen 38 mg/dL (7-20) H Creatinine 1.2 mg/dL (0.6-1.0) H Estimated GFR (Cockcroft-Gault) 43.6 BUN/Creatinine Ratio 32 (6-20) H Glucose Level 134 mg/dL (70-99) H Calcium Level 8.8 mg/dL (8.5-10.1) Total Bilirubin 0.1 mg/dL (0.2-1.0) L Aspartate Amino Transferase (AST) 41 U/L (15-37) H Alanine Aminotransferase (ALT) 59 U/L (14-59) Alkaline Phosphatase 79 U/L (46-116) Total Protein 6.5 g/dL (6.4-8.2) Albumin 2.2 g/dL (3.4-5.0) L Albumin/Globulin Ratio 0.5 (1.0-1.7) L Current Medications: Meds: Current Medications Cefdinir (Omnicef) 300 mg BID PO Last administered on 08/17/18at 07:48; Start 08/16/18 at 21:00; Stop 08/17/18 at 16:47; Status DC Acetaminophen (Tylenol) 650 mg PRN Q6HRS PRN PO pain/temp; Start 08/16/18 at 19:00 Albuterol Sulfate (Ventolin) 2.5 mg RTQID NEB Last administered on 08/17/18at 05:11; Start 08/16/18 at 20:00 Ascorbic Acid (Vitamin C) 500 mg DAILY PO Last administered on 08/17/18at 07:53 ; Start 08/17/18 at 09:00 Cefdinir (Omnicef) 300 mg BID PO ; Start 08/16/18 at 21:00; Stop 08/16/18 at 21:00; Status DC Vitamin D (Vitamin D3) 1,000 unit DAILY PO Last administered on 08/17/18at 07: 53; Start 08/17/18 at 09:00 Ferrous Sulfate (Feosol) 325 mg DAILY PO Last administered on 08/17/18at 07:53 ; Start 08/17/18 at 09:00 Guaifenesin (Mucinex Er) 600 mg PRN BID PRN PO COUGH; Start 08/16/18 at 19:00 Lactobacillus Rhamnosus (Culturelle) 1 cap DAILY PO Last administered on at 07:53; Start 08/17/18 at 09:00 Levothyroxine Sodium (Synthroid) 88 mcg DAILY06 PO Last administered on at 04:58; Start 08/17/18 at 06:00 Multi-Ingredient Ointment (Analgesic [place]) 1 santosh PRN QID PRN TP muscle pain; Start 08/16/18 at 19:00 Olanzapine (ZyPREXA ZYDIS) 2.5 mg PRN Q2HR PRN PO ANXIETY / AGITATION; Start 08/16/18 at 19:00 Tramadol HCl (Ultram) 50 mg PRN Q8HRS PRN PO PAIN; Start 08/16/18 at 19:00 Aspirin (Children'S Aspirin) 81 mg DAILYWBKFT PO Last administered on at 07:53; Start 08/17/18 at 08:00 Non-Formulary Medication (Budesonide (Pulmicort)) 0.5 mg RTBID NEB ; Start at 20:00; Status UNV Cetirizine HCl (ZyrTEC) 10 mg PRN DAILY PRN PO ALLERGIES; Start 08/17/18 at 09 :00 Divalproex Sodium (Depakote Sprinkles) 500 mg QHS PO Last administered on 08/17at 19:40; Start 08/16/18 at 21:00 Gabapentin (Neurontin) 600 mg QHS PO Last administered on 08/17/18at 19:41; Start 08/16/18 at 21:00 Ipratropium [place] (Atrovent Nasal) 2 spray BID NS Last administered on at 07:55; Start 08/16/18 at 21:00; Stop 08/17/18 at 14:20; Status DC [place] Carbonate 150 mg DAILY PO Last administered on 08/17/18 07:56; Start 08/17/18 at 09:00 [place] Carbonate 300 mg QHS PO Last administered on 08/17/18at 19:41; Start 08/16/18 at 21:00 Lorazepam (Ativan) 0.25 mg PRN QID PRN PO ANXIETY / AGITATION Last administered on 08/17/18at 00:53; Start 08/16/18 at 20:15 Al Hydroxide/Mg Hydroxide (Mylanta Plus Xs) 30 ml PRN AFTMEALHC PRN PO DYSPEPSIA; Start 08/16/18 at 20:15 Magnesium Hydroxide (Milk Of Magnesia) 2,400 mg PRN QHS PRN PO CONSTIPATION; Start 08/16/18 at 20:15 Meclizine HCl (Antivert) 12.5 mg PRN TID PRN PO DIZZINESS; Start 08/16/18 at 20:15 Fish Oil (Fish Oil) 1,000 mg DAILY PO Last administered on 08/17/18at 07:52; Start 08/17/18 at 09:00 Orphenadrine Citrate (Norflex Er) 100 mg PRN BID PRN PO MUSCLE SPASMS; Start 08/16/18 at 20:15 Polyethylene Glycol (miraLAX) 17 gm DAILY PO Last administered on 08/17/18at 07 :53; Start 08/17/18 at 09:00 Quetiapine Fumarate (SEROquel) 25 mg QHS PO Last administered on 08/17/18 19: 41; Start 08/16/18 at 21:00 Risperidone (RisperDAL) 1 mg BID PO Last administered on 08/17/18at 19:41; Start 08/16/18 at 21:00 Coenzyme Q10 (Coenzyme Q10) 100 mg DAILY PO Last administered on 08/17/18at 07: 52; Start 08/17/18 at 09:00 Budesonide (Pulmicort) 0.5 mg RTBID NEB ; Start 08/17/18 at 08:00 Ipratropium [place] (Atrovent Nasal) 2 spray PRN BID PRN NS ALLERGIES; Start 08/17/18 at 14:30 Amoxicillin/ Clavulanate Potassium (Augmentin 500/ 125mg) 1 tab BID PO Last administered on 08/17/18at 19:42; Start 08/17/18 at 21:00; Stop 08/22/18 at 20 :59 Enoxaparin Sodium (Lovenox 60mg Syringe) 60 mg Q12HR SQ Last administered on 12 /22/18at 20:28; Start 08/17/18 at 21:00 Active Scripts Active Cefdinir 300 Mg Capsule 1 Cap PO BID 5 Days Reported Risperidone 1 Mg Tablet 1 Mg PO BID Zyprexa Zydis (Olanzapine) 5 Mg Tab.rapdis 2.5 Mg PO PRN Q2HR PRN Analgesic [place] (Methyl Salicylate/Menthol) 28 Gm Oint...g. 1 Santosh TP PRN QID PRN Milk Of Magnesia (Magnesium Hydroxide) 2,400 Mg/10 Ml Oral.susp 2,400 Mg PO PRN QHS PRN [place] Liquid (Mag Hydrox/Al Hydrox/Simeth) 360 Ml Oral.susp 15 Ml PO PRN AFTMEALHC PRN Lorazepam 0.5 Mg Tablet 0.25 Mg PO PRN QID PRN [place] Carbonate 150 Mg Capsule 150 Mg PO DAILY Gabapentin 600 Mg Tablet 600 Mg PO QHS Depakote Sprinkle (Divalproex Sodium) 125 Mg Cap.sprink 500 Mg PO QHS Pulmicort (Budesonide) 0.5 Mg/2 Ml Ampul.neb 0.5 Mg NEB RTBID Albuterol Sulfate Neb Soln (Albuterol Sulfate) 2.5 Mg/3 Ml Vial.neb 2.5 Mg NEB RTQID Tylenol (Acetaminophen) 325 Mg Tablet 650 Mg PO PRN Q6HRS PRN [place] Carbonate 300 Mg Tablet 300 Mg PO HS Ipratropium [place] 30 Ml [place] 30 Ml NS BID Seroquel (Quetiapine Fumarate) 25 Mg Tablet 25 Mg PO QHS Tramadol Hcl (Tramadol HCl) 50 Mg Tablet 50 Mg PO PRN Q8HRS PRN Miralax (Polyethylene Glycol 3350) 17 Gm Powd.pack 1 Packet PO DAILY Orphenadrine Citrate 100 Mg Tablet.er 1 Tab PO PRN BID PRN Meclizine Hcl 25 Mg Tablet 12.5 Mg PO PRN TID PRN Levothyroxine Sodium 88 Mcg Tablet 88 Mcg PO DAILY06 Culturelle (Lactobacillus Rhamnosus Gg) 1 Each Cap.sprink 1 Each PO DAILY Mucinex (Guaifenesin) 600 Mg Tablet.er 1 Tab PO PRN BID PRN [place] 3 Fish Oil Softgel ([place]-3 Fatty Acids/Fish Oil) 1 Each Capsule.dr 1 Each PO DAILY PRN Ferrous Sulfate 325 Mg Tablet 325 Mg PO DAILY Coenzyme Q10 (Ubidecarenone) 100 Mg Capsule 100 Mg PO DAILY Vitamin D3 (Cholecalciferol (Vitamin D3)) 1,000 Unit Tablet 1 Tab PO DAILY Zyrtec (Cetirizine Hcl) 10 Mg Tablet 1 Tab PO PRN DAILY PRN Aspirin 81 Mg Tab.chew 81 Mg PO DAILY Ascorbic Acid 500 Mg Tablet 500 Mg PO DAILY I have reviewed the current psychotropics carefully including drug interactions. Risk benefit ratio favors no change other than as noted in my dictated progress note. Diagnosis: Problems: (1) Anxiety disorder (2) Sepsis (3) Urinary tract infection (4) Bipolar affective, mixed, sev w/ psych (5) Dehydration (6) Impulse control disorder (7) Bipolar disorder (8) Psychosis, atypical ZOFIA INFANTE MD Aug 17, 2018 22:13
--- NOTE | 2018-08-17 23:02 | CONS ---
DATE OF CONSULTATION: REASON FOR CONSULTATION: Medical management. HISTORY OF PRESENT ILLNESS: The patient is a 77-year-old female patient, who was originally admitted to this facility on account of being delusional, paranoid. She has flight of thoughts, thinks she is being poisoned and phones are being tapped, she has increased religiosity and hypersexuality, all this in the background of bipolar disorder. According to the nursing staff, she was talking the whole day. While in the [facility], she was noted to have a marked leukocytosis. Her kidney function also has worsened and became dehydrated with arising BUN and also lactic acid was high at 2.5 and therefore, the patient was transferred to [address] [place] [address] where she was treated with IV antibiotic in the form of ceftriaxone and she did actually well, her white cell count came down from [phone]. Her kidney function also improved. Her BUN is down to 38 from 50 and creatinine 1.2 from 1.6. Her serum sodium has improved and her lactic acid came down to 1 and therefore, a decision was made to transfer her back to [facility], as she continued to be extremely restless, agitated, she is paranoid, delusional, does not stop talking and she is here for inpatient psychiatric stabilization. When I saw her this afternoon, she was complaining of shortness of breath that started today with cough. She was clearly short of breath and unable to finish her sentences and therefore we ordered some lab work and a chest x-ray. PAST MEDICAL HISTORY: Significant for anemia, bronchial asthma, hypertensive heart disease, chronic kidney disease stage 3, congestive heart failure, lung cancer, chronic back pain, COPD, hyperlipidemia, hypertension, hypothyroidism, lithium use and neuropathy, osteoarthritis and fibromyalgia and herniated disk. PAST SURGICAL HISTORY: Significant for left upper lobectomy for lung cancer. ALLERGIES: SHE IS ALLERGIC TO HALDOL, CIPROFLOXACIN, FUROSEMIDE, LEVOFLOXACIN, NONSTEROIDAL ANTI-INFLAMMATORY MEDICATION, RISPERIDONE, SELDANE, SULFONAMIDE, TIZANIDINE, PREDNISONE, AND SULFAMETHOXAZOLE. FAMILY HISTORY: Unremarkable. SOCIAL HISTORY: She apparently lives at home with her . 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 The patient has a high school education. She used to be very active like dancing, spending time with the family. She has a daughter and grandchildren. MEDICATIONS: She is currently on following medications: She is on cetirizine for Zyrtec 10 mg once a day, cefdinir 300 mg twice a day, albuterol sulfate 2.5 mg by nebulizer 4 times a day, orphenadrine citrate 100 mg twice a day, ferrous sulfate 325 mg daily, omega 3 fatty acid once a day, aspirin 81 mg daily, analgesic balm 4 times a day, tramadol 50 mg every 8 hours, acetaminophen 650 mg every 6 hours, Depakote Sprinkles 500 mg at bedtime, gabapentin 600 mg at bedtime, olanzapine 2.5 mg every 2 hours, quetiapine fumarate 25 mg at bedtime, risperidone 1 mg twice a day, lorazepam 0.5 mg 4 times a day. She is on lithium carbonate 300 mg at bedtime and lithium carbonate 150 mg daily. She is on Pulmicort 0.5 mg 3 mL by nebulizer twice a day. She is on Mucinex 600 mg twice a day, ipratropium bromide 30 mL twice a day. She is on Maalox 15 mL after meals, milk of magnesia 30 mL p.o. daily p.r.n. for constipation, polyethylene glycol 17 grams daily, meclizine 12.5 mg 3 times a day, levothyroxine sodium 88 mcg daily, vitamin C for ascorbic acid 500 mg daily, vitamin D, cholecalciferol 1000 international units once a day, and Coenzyme Q10 100 mg daily. PHYSICAL EXAMINATION: GENERAL: When I saw her this afternoon, she was resting slightly propped up in her recliner, slightly tachypneic, pale, but no jaundice, cyanosis, or thyromegaly. No jugular venous distension. No lower limb edema. VITAL SIGNS: Her heart rate was 69, blood pressure was 98/64, temperature was 98, respiratory rate was 20, and oxygen saturation was 94% on room air. HEAD, EYES, EARS, NOSE AND THROAT: Showed normocephalic, atraumatic. NECK: Supple. HEART: Showed normal first and second heart sounds. No gallop, rub or murmur. CHEST: Clear to auscultation. No crepitation or rhonchi. ABDOMEN: Scaphoid, soft, nontender. NEUROLOGIC: She was awake, alert, responding appropriately. Her cranial nerves intact. She moves extremities without difficulty; however, she is mostly bedbound, chair bound. EXTREMITIES: Showed no clubbing, cyanosis, but mild bilateral lower limb edema. ASSESSMENT AND PLAN: In summary, this is a 77-year-old female patient, who came back from [facility] after treatment for her urinary tract infection. Unfortunately, her urine culture has eventually grown Enterococcus faecalis that is vancomycin sensitive. I will probably switch her to Augmentin 500 mg/125 twice a day, as the initial culture showed growth of Streptococcus species. I would also do a chest x-ray and repeat her labs including D-dimer. She seemed to be more short of breath today than yesterday. Thank you, Dr. Newsome for allowing me to participate in the care of this patient. JOSE ALEJANDRO OWUSU MD DR: DEVON/caleb JOB#: [id number] / [id number]
--- NOTE | 2018-08-17 23:30 | NUR ---
Pt sitting up in Broda chair in the day room at shift change. Pt A/O to self, hyperverbal, lewis. Pt resistive to medications, believes she is being poisoned and wants her doctor to be called and "brought down here". Medications crushed and hidden in strawberry Boost which pt consumed. Pt was compliant with Lovenox injection after indication for medication and procedure explained to her.
--- NOTE | 2018-08-17 23:44 | HP ---
ADMIT DATE: 08/16/2018 PSYCHIATRIC ADMISSION HISTORY/EVALUATION This late entry, date of service 08/16/2018, covers elements not covered in my initial note. IDENTIFYING DATA: The patient is a 77-year-old female who returns back to us from [address] [place] [address] Medical-Surgical floor after medical stabilization for her UTI/sepsis, which was diagnosed while she was on the Geriatric-Psychiat[facility] Unit being stabilized for her bipolar disorder, mixed with psychotic features. She has continued to be extremely psychotic, delusional on [address] [place] [address], believes she is in a movie. She is verbally abusive to staff, refusing cares, snarky, paranoid. She has failed outpatient psychiatric interventions. Her has obtained temporary guardianship of her through the court and is proceeding with permanent guardianship. CHIEF COMPLAINT: "I don't know about all that." The patient is quite anxious, restless, hyperverbal, labile, psychotic, as I met with her, quite disorganized. HISTORY OF PRESENT ILLNESS: The patient has a history of bipolar disorder mixed with psychotic features. She has been stabilized on lithium and Depakote in the past along with Risperdal and Seroquel. She was initially admitted to us from home via the Emergency Room on account of worsening psychosis, mood swings, unmanageable behavior, failure for outpatient psychiatric interventions. Following transfer to [address] [place] [address], she continued to be extremely psychotic, labile, aggressive and is therefore being brought back to our unit for stabilization. She has had progressive short-term memory deficits. PAST PSYCHIATRIC HISTORY: As above. MEDICAL HISTORY: UTIs, urosepsis, acute renal failure, history of lung cancer, left upper lobectomy, pulmonary disease, hypothyroidism, ulcerative colitis, osteoarthritis, degenerative joint disease, hypertension, hyperlipidemia, restless leg syndrome, headaches. ACCU-CHEKS: None. DIET: Regular. Takes medications hidden in strawberry boost, ambulates up Broda chair. UA 08/14/2018 is positive for Streptococcus, on Omnicef. ALLERGIES: NONSTEROIDAL ANTI-INFLAMMATORY MEDICATIONS, SULFA, CIPRO, LASIX, HALDOL, LEVAQUIN, PREDNISONE, SULFAMETHOXAZOLE, TERFENADINE, TIZANIDINE. CURRENT PSYCHOTROPICS: Depakote Sprinkles 500 mg at bedtime, lithium 300 mg at bedtime and then we added 150 mg in the morning because the level was 0.6 subtherapeutic, on the 300 mg at bedtime when the said she does best with the level of 0.8, Ativan p.r.n., Risperdal 1 mg b.i.d., Seroquel 25 mg at bedtime, Zyprexa p.r.n. FAMILY HISTORY: Noncontributory. SOCIAL HISTORY: No history of alcohol, drug abuse, physical, sexual or elder abuse. She is not known to be a perpetrator. REACTION TO HOSPITALIZATION: The patient is oblivious of this. ASSETS: Supportive. Family has been as guardian. MENTAL STATUS EXAM: The patient was seen individually in evening of 08/16/2018. She is oriented to herself and situation. Speech is coherent, rapid at times. Abstraction fair, computation impaired, language function intact, attention span short. Mood and affect remains quite labile. She is very distractible, anxious, restless, paranoid, psychotic. LABORATORY DATA: Reviewed. IMPRESSION: Bipolar 1 disorder, mixed with psychotic features; anxiety disorder, unspecified; impulse control disorder, unspecified; cognitive disorder, unspecified. Rest as above including urinary tract infection and urosepsis, in partial remission. PLAN: Admit to Geropsychiat[facility] Unit [facility]. I will see the patient daily individually from a psychiatric standpoint, medical followup with Dr. Ray. Continue the patient on her current psychotropics. We will check a valproic acid level, repeat a lithium level. Adjust further as clinically indicated. ZOFIA INFANTE MD DR: CASTILLO/caleb JOB#: [id number] / [id number]
--- NOTE | 2018-08-18 00:48 | PN ---
DATE: 08/17/2018 PSYCHIATRIC PROGRESS NOTE This late entry 08/17/2018 covers elements not covered in my initial note. SUBJECTIVE: I met with the patient in the evening. The patient slept 4-1/4 hours previous night. She has been verbally aggressive, demanding, hyperverbal, grandiose, psychotic per nursing report. D-dimer result awaited, we will defer to Dr. Ray. REVIEW OF SYSTEMS: Ambulation impaired, in Broda chair. No CV, , pulmonary, eye, ENT system symptoms on review. Reliability poor. MENTAL STATUS EXAM: Oriented to herself and situation. Speech coherent, rapid at times. Abstraction fair, computation impaired, language function intact, attention span short. Mood and affect remains labile. She is quite paranoid, psychotic, hyperverbal as I met with her, distractable. LABORATORY DATA: Reviewed. IMPRESSION: Bipolar 1 disorder, mixed with psychotic features; anxiety disorder, unspecified; impulse control disorder, unspecified; cognitive disorder, unspecified. PLAN: Check valproic acid level and lithium level in the morning. We have increased the lithium by 150 mg. I would like to make sure level is therapeutic around 0.8. Continue rest of the psychotropics unchanged for now. ZOFIA INFANTE MD DR: CASTILLO/caleb JOB#: [id number] / [id number]
[2018-08-18] MEDS: LEVOTHYROXINE 88 MCG TABLET PO SCH (05:42)
[2018-08-18] MEDS: ALBUTEROL SULFATE 2.5 MG/3 ML NEBU. NEB SCH ×4 (05:46→20:00)
[2018-08-18 06:41] VITALS: BP 95/61
[2018-08-18] MEDS: OMEGA-3 FATTY ACIDS/FISH OIL 1,000 MG CAPSULE. PO SCH (07:51)
[2018-08-18] MEDS: POLYETHYLENE GLYCOL 3350 17 GM PACKET. PO SCH (07:51)
[2018-08-18] MEDS: LACTOBACILLUS RHAMNOSUS GG 1 CAPSULE. PO SCH (07:52)
[2018-08-18] MEDS: UBIDECARENONE 50 MG CAPSULE. PO SCH (07:52)
[2018-08-18] MEDS: AMOXICILLIN/K CLAV 500/125MG TABLET. PO SCH ×3 (07:52→21:00)
[2018-08-18] MEDS: LITHIUM CARBONATE 300 MG TABLET PO SCH ×3 (07:52→21:00)
[2018-08-18] MEDS: FERROUS SULFATE 325 MG TABLET. PO SCH (07:52)
[2018-08-18] MEDS: ASPIRIN 81 MG TAB.CHEW PO SCH (07:52)
[2018-08-18] MEDS: risperiDONE 1 MG TABLET. PO SCH ×3 (07:52→21:00)
[2018-08-18] MEDS: CHOLECALCIFEROL (VITAMIN D3) 1,000 UNIT TABLET PO SCH (07:53)
[2018-08-18] MEDS: ASCORBIC ACID 500 MG TABLET PO SCH (07:53)
[2018-08-18] MEDS: BUDESONIDE 0.5 MG/2 ML NEBU NEB SCH ×2 (08:00→20:00)
[2018-08-18] MEDS ORDERED: IOHEXOL 300 MG/ML 75 ML VIAL. IV ONE (08:15)
[2018-08-18] MEDS: ENOXAPARIN ** NOTE DOSE ** SYRINGE SQ SCH ×2 (09:40→23:27)
--- NOTE | 2018-08-18 10:04 | NUR ---
Behavior Intervention Response and Plan: BIRP Note: Behavior: Assumed Care of patient, patient located in Dining Room at shift change. Patient exhibited the following behavior Restless, Demanding, Irritable. Brief assessment on rounds of vital signs, medication needs, lab studies, and pain. Treatment plan problems . Intervention: Patient assessed and the following interventions initiated safety checks 15 Minute Checks Cognitive Assessment , Head to toe Assessment , Medications. Response: After interactions and interventions patient responded in the following manner, Restless , Attention Seeking ,Disorganized. Continue to assess behaviors and condition will continue to monitor throughout the shift as needed. Patient educated on ADL's, and hand hygiene. 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 Continue to assess patient for changes in above assessment. Monitor for medication needs, pain, and safety concerns. Hourly rounding performed to ensure safe environment.
[2018-08-18 11:19] LABS: BASO % 0 % (0-3); EOS # 0.2 x10^3/uL (0.0-0.7); EOS % 2 % (0-3); HEMATOCRIT 27.4 % (36.0-47.0); HEMOGLOBIN 8.8 g/dL (12.0-15.5); LYMPH # 1.2 x10^3/uL (1.0-4.8); LYMPH % 15 % (24-48); MEAN CORPUSCULAR HEMOGLOBIN 31 pg (25-35); MEAN CORPUSCULAR HGB CONC 32 g/dL (31-37); MEAN CORPUSCULAR VOLUME 97 fL (79-100); MONO # 0.8 x10^3/uL (0.0-1.1); MONO % 10 % (0-9); NEUT # 5.7 x10^3uL (1.8-7.7); NEUT % 72 % (31-73); PLATELET COUNT 167 x10^3/uL (140-400); RED BLOOD COUNT 2.84 x10^6/uL (3.50-5.40); RED CELL DISTRIBUTION WIDTH 14.3 % (11.5-14.5); WHITE BLOOD COUNT 7.9 x10^3/uL (4.0-11.0)
[2018-08-18 11:35] LABS: ALBUMIN 2.2 g/dL (3.4-5.0); ALBUMIN/GLOBULIN RATIO 0.5 (1.0-1.7); ALK PHOS 77 U/L (46-116); ALT (SGPT) 61 U/L (14-59); ANION GAP 6 (6-14); AST (SGOT) 36 U/L (15-37); BLOOD UREA NITROGEN 36 mg/dL (7-20); BUN/CREATININE RATIO 33 (6-20); CALCIUM 9.1 mg/dL (8.5-10.1); CARBON DIOXIDE 29 mmol/L (21-32); CHLORIDE 106 mmol/L (98-107); CREATININE 1.1 mg/dL (0.6-1.0); GFR 48.2; GLUCOSE 112 mg/dL (70-99); POTASSIUM 4.6 mmol/L (3.5-5.1); SODIUM 141 mmol/L (136-145); TOTAL BILIRUBIN 0.2 mg/dL (0.2-1.0); TOTAL PROTEIN 6.5 g/dL (6.4-8.2)
--- NOTE | 2018-08-18 11:38 | RAD ---
Ultrasound venous Doppler INDICATION:SOA, elevated D-DIMER TECHNIQUE: Grayscale, color Doppler and spectral waveform ultrasound images of the bilateral lower extremities deep veins obtained. COMPARISON: None FINDINGS: The interrogated deep veins are compressible and demonstrate evidence of blood flow with normal respiratory variation and response to augmentation. IMPRESSION: No sonographic evidence of acute DVT of the bilateral lower extremity deep veins. Electronically signed by: Chandu Benoit DO (08/18/2018 11:35 AM) [facility]
[2018-08-18 11:41] LABS: VAL ACID 14 mcg/mL (50-100)
--- NOTE | 2018-08-18 13:05 | RAD ---
PQRS Compliance statement: One or more of the following individualized dose reduction techniques were utilized for this examination: 1. Automated exposure control. 2. Adjustment of the mA and/or kV according to patient size. 3. Use of iterative reconstruction technique. Indication:Short of breath TECHNIQUE: CT angiogram of the chest with IV contrast with multiplanar MIP reformats. COMPARISON:None FINDINGS: Diagnostic quality PE study. There is a segmental filling defect in the pulmonary arteries supplying right lower lobe. Postsurgical changes seen in the left upper lobe. Moderate diffuse emphysema. Heart is normal in size. No pericardial effusion. Small left pleural effusion. No enlarged axillary, mediastinal or hilar adenopathy. Reticular opacities are seen in the left lower lobe. There is loss of left lung volume from prior partial lobectomy. Multifocal patchy nodular opacities are seen in the left lung. Visualized sections of the upper abdomen is within normal limits. No suspicious bony lesion. IMPRESSION: 1. Right lower lobe segmental PE. 2. Small left pleural effusion, nonspecific. Moderate diffuse emphysema. 3. Multifocal nodular opacities in the left lung, nonspecific and may be secondary to aspiration, pneumonia or metastasis if there is history of malignancy. Short-term follow-up recommended in 3 months. Critical findings were identified on 08/18/2018 12:54 PM, read back and verified with Nurse Lyly Ortega RN on 08/18/2018 1:[address] Chandu Benoit DO. Electronically signed by: Chandu Benoit DO (08/18/2018 1:01 PM) [facility]
--- NOTE | 2018-08-18 13:14 | NUR ---
pt down for CTA before lunch. Radiologist called and pt has PE R lung. Dr Ray notified. Order recieved to start Eliquis. Venous doppler neg.
--- NOTE | 2018-08-18 15:26 | NUR ---
pt up in broda for meals. has been demanding at times. Meds taken hidden in boost. Compliant with cares.
--- NOTE | 2018-08-18 16:25 | NUR ---
spoke with regarding CTA results.
[2018-08-18 16:37] VITALS: BP 99/63
[2018-08-18] MEDS: DIVALPROEX 125 MG CAP.SPRINK PO SCH ×2 (20:14→21:00)
[2018-08-18] MEDS: QUEtiapine 25 MG TABLET. PO SCH ×2 (20:15→21:00)
[2018-08-18] MEDS: GABAPENTIN 300 MG CAPSULE. PO SCH ×2 (20:15→21:00)
[2018-08-18] MEDS ORDERED: APIXABAN 5 MG TABLET. PO SCH (21:00)
--- NOTE | 2018-08-18 22:58 | PDOC ---
Exam Note: Alessandro Note: Please also refer to the separate dictated note~for this date of service dictated separately.~Patient seen individually. Discussed the patient with Nursing staff reviewed the chart.~Reviewed interim history and current functioning. Reviewed vital signs,~Labs/ Radiology~and current medications noted below. Continue current treatment with the changes noted in the dictated addendum note Assessment: Vital Signs: Vital Signs Date Time Temp Pulse Resp B/P (MAP) Pulse Ox O2 Delivery O2 Flow Rate FiO2 08/18/18 16:37 98.6 71 19 99/63 (75) 92 08/18/18 06:41 Room Air I&O Intake and Output 08/18/18 07:01 Intake Total 1200 ml Balance 1200 ml Intake Oral 1200 ml Labs: Laboratory Tests Test 08/18/18 10:25 White Blood Count 7.9 x10^3/uL (4.0-11.0) Red Blood Count 2.84 x10^6/uL (3.50-5.40) L Hemoglobin 8.8 g/dL (12.0-15.5) L Hematocrit 27.4 % (36.0-47.0) L Mean Corpuscular Volume 97 fL (79-100) Mean Corpuscular Hemoglobin 31 pg (25-35) Mean Corpuscular Hemoglobin Concent 32 g/dL (31-37) Red Cell Distribution Width 14.3 % (11.5-14.5) Platelet Count 167 x10^3/uL (140-400) Neutrophils (%) (Auto) 72 % (31-73) Lymphocytes (%) (Auto) 15 % (24-48) L Monocytes (%) (Auto) 10 % (0-9) H Eosinophils (%) (Auto) 2 % (0-3) Basophils (%) (Auto) 0 % (0-3) Neutrophils # (Auto) 5.7 x10^3uL (1.8-7.7) Lymphocytes # (Auto) 1.2 x10^3/uL (1.0-4.8) Monocytes # (Auto) 0.8 x10^3/uL (0.0-1.1) Eosinophils # (Auto) 0.2 x10^3/uL (0.0-0.7) Basophils # (Auto) 0.0 x10^3/uL (0.0-0.2) Sodium Level 141 mmol/L (136-145) Potassium Level 4.6 mmol/L (3.5-5.1) Chloride Level 106 mmol/L (98-107) Carbon Dioxide Level 29 mmol/L (21-32) Anion Gap 6 (6-14) Blood Urea Nitrogen 36 mg/dL (7-20) H Creatinine 1.1 mg/dL (0.6-1.0) H Estimated GFR (Cockcroft-Gault) 48.2 BUN/Creatinine Ratio 33 (6-20) H Glucose Level 112 mg/dL (70-99) H Calcium Level 9.1 mg/dL (8.5-10.1) Total Bilirubin 0.2 mg/dL (0.2-1.0) # Aspartate Amino Transferase (AST) 36 U/L (15-37) Alanine Aminotransferase (ALT) 61 U/L (14-59) H Alkaline Phosphatase 77 U/L (46-116) Total Protein 6.5 g/dL (6.4-8.2) Albumin 2.2 g/dL (3.4-5.0) L Albumin/Globulin Ratio 0.5 (1.0-1.7) L Valproic Acid Level 14 mcg/mL (50-100) L Valproic Acid Last Dose Date 08/17/2018 Valproic Acid Last Dose Time 220 [place] Level 0.8 mmol/L (0.6-1.2) [place] Last Dose Date 08/17/18 [place] Last Dose Time 2200 Current Medications: Meds: Current Medications Cefdinir (Omnicef) 300 mg BID PO Last administered on 08/17/18at 07:48; Start 08/16/18 at 21:00; Stop 08/17/18 at 16:47; Status DC Acetaminophen (Tylenol) 650 mg PRN Q6HRS PRN PO pain/temp; Start 08/16/18 at 19:00 Albuterol Sulfate (Ventolin) 2.5 mg RTQID NEB Last administered on 08/17/18at 05:11; Start 08/16/18 at 20:00 Ascorbic Acid (Vitamin C) 500 mg DAILY PO Last administered on 08/18/18at 07:53 ; Start 08/17/18 at 09:00 Cefdinir (Omnicef) 300 mg BID PO ; Start 08/16/18 at 21:00; Stop 08/16/18 at 21:00; Status DC Vitamin D (Vitamin D3) 1,000 unit DAILY PO Last administered on 08/18/18at 07: 53; Start 08/17/18 at 09:00 Ferrous Sulfate (Feosol) 325 mg DAILY PO Last administered on 08/18/18at 07:52 ; Start 08/17/18 at 09:00 Guaifenesin (Mucinex Er) 600 mg PRN BID PRN PO COUGH; Start 08/16/18 at 19:00 Lactobacillus Rhamnosus (Culturelle) 1 cap DAILY PO Last administered on at 07:52; Start 08/17/18 at 09:00 Levothyroxine Sodium (Synthroid) 88 mcg DAILY06 PO Last administered on at 05:42; Start 08/17/18 at 06:00 Multi-Ingredient Ointment (Analgesic [place]) 1 santosh PRN QID PRN TP muscle pain; Start 08/16/18 at 19:00 Olanzapine (ZyPREXA ZYDIS) 2.5 mg PRN Q2HR PRN PO ANXIETY / AGITATION; Start 08/16/18 at 19:00 Tramadol HCl (Ultram) 50 mg PRN Q8HRS PRN PO PAIN; Start 08/16/18 at 19:00 Aspirin (Children'S Aspirin) 81 mg DAILYWBKFT PO Last administered on at 07:52; Start 08/17/18 at 08:00 Non-Formulary Medication (Budesonide (Pulmicort)) 0.5 mg RTBID NEB ; Start at 20:00; Status UNV Cetirizine HCl (ZyrTEC) 10 mg PRN DAILY PRN PO ALLERGIES; Start 08/17/18 at 09 :00 Divalproex Sodium (Depakote Sprinkles) 500 mg QHS PO Last administered on 08/17at 19:40; Start 08/16/18 at 21:00; Stop 08/18/18 at 18:48; Status DC Gabapentin (Neurontin) 600 mg QHS PO Last administered on 08/18/18at 20:15; Start 08/16/18 at 21:[address]pr[address] [place] (Atrovent Nasal) 2 spray BID NS Last administered on at 07:55; Start 08/16/18 at 21:00; Stop 08/17/18 at 14:20; Status DC [place] Carbonate 150 mg DAILY PO Last administered on 08/18/18at 07:52; Start 08/17/18 at 09:00 [place] Carbonate 300 mg QHS PO Last administered on 08/18/18at 20:15; Start 08/16/18 at 21:00 Lorazepam (Ativan) 0.25 mg PRN QID PRN PO ANXIETY / AGITATION Last administered on 08/17/18at 00:53; Start 08/16/18 at 20:15 Al Hydroxide/Mg Hydroxide (Mylanta Plus Xs) 30 ml PRN AFTMEALHC PRN PO DYSPEPSIA; Start 08/16/18 at 20:15 Magnesium Hydroxide (Milk Of Magnesia) 2,400 mg PRN QHS PRN PO CONSTIPATION; Start 08/16/18 at 20:15 Meclizine HCl (Antivert) 12.5 mg PRN TID PRN PO DIZZINESS; Start 08/16/18 at 20:15 Fish Oil (Fish Oil) 1,000 mg DAILY PO Last administered on 08/18/18at 07:51; Start 08/17/18 at 09:00 Orphenadrine Citrate (Norflex Er) 100 mg PRN BID PRN PO MUSCLE SPASMS; Start 08/16/18 at 20:15 Polyethylene Glycol (miraLAX) 17 gm DAILY PO Last administered on 08/18/18at 07 :51; Start 08/17/18 at 09:00 Quetiapine Fumarate (SEROquel) 25 mg QHS PO Last administered on 08/18/18at 20: 15; Start 08/16/18 at 21:00 Risperidone (RisperDAL) 1 mg BID PO Last administered on 08/18/18at 20:15; Start 08/16/18 at 21:00 Coenzyme Q10 (Coenzyme Q10) 100 mg DAILY PO Last administered on 08/18/18at 07: 52; Start 08/17/18 at 09:00 Budesonide (Pulmicort) 0.5 mg RTBID NEB ; Start 08/17/18 at 08:00 [address]prat[address] [place] (Atrovent Nasal) 2 spray PRN BID PRN NS ALLERGIES; Start 08/17/18 at 14:30 Amoxicillin/ Clavulanate Potassium (Augmentin 500/ 125mg) 1 tab BID PO Last administered on 08/18/18at 20:14; Start 08/17/18 at 21:00; Stop 08/22/18 at 20 :59 Enoxaparin Sodium (Lovenox 60mg Syringe) 60 mg Q12HR SQ Last administered on at 09:40; Start 08/17/18 at 21:00; Stop 08/18/18 at 13:25; Status DC Iohexol (Omnipaque 300 Mg/ml) 75 ml 1X ONCE IV Last administered on at 11:57; Start 08/18/18 at 08:15; Stop 08/18/18 at 08:29; Status DC Apixaban (Eliquis) 10 mg BID PO Last administered on 08/18/18at 20:17; Start 08/18/18 at 21:00; Stop 08/18/18 at 22:41; Status DC Apixaban (Eliquis) 5 mg BID PO ; Start 08/26/18 at 09:00; Stop 08/26/18 at 09: 00; Status DC Divalproex Sodium (Depakote Sprinkles) 500 mg BID PO Last administered on 08/18at 20:14; Start 08/18/18 at 21:00 Enoxaparin Sodium (Lovenox 60mg Syringe) 60 mg Q12HR SQ ; Start 08/19/18 at 09: 00 Active Scripts Active Cefdinir 300 Mg Capsule 1 Cap PO BID 5 Days Reported Risperidone 1 Mg Tablet 1 Mg PO BID Zyprexa Zydis (Olanzapine) 5 Mg Tab.rapdis 2.5 Mg PO PRN Q2HR PRN Analgesic [place] (Methyl Salicylate/Menthol) 28 Gm Oint...g. 1 [place] TP PRN QID PRN Milk Of Magnesia (Magnesium Hydroxide) 2,400 Mg/10 Ml Oral.susp 2,400 Mg PO PRN QHS PRN [place] Liquid (Mag Hydrox/Al Hydrox/Simeth) 360 Ml Oral.susp 15 Ml PO PRN AFTMEALHC PRN Lorazepam 0.5 Mg Tablet 0.25 Mg PO PRN QID PRN [place] Carbonate 150 Mg Capsule 150 Mg PO DAILY Gabapentin 600 Mg Tablet 600 Mg PO QHS Depakote Sprinkle (Divalproex Sodium) 125 Mg Cap.sprink 500 Mg PO QHS Pulmicort (Budesonide) 0.5 Mg/2 Ml Ampul.neb 0.5 Mg NEB RTBID Albuterol Sulfate Neb Soln (Albuterol Sulfate) 2.5 Mg/3 Ml Vial.neb 2.5 Mg NEB RTQID Tylenol (Acetaminophen) 325 Mg Tablet 650 Mg PO PRN Q6HRS PRN [place] Carbonate 300 Mg Tablet 300 Mg PO HS Ipratropium [place] 30 Ml [place] 30 Ml NS BID Seroquel (Quetiapine Fumarate) 25 Mg Tablet 25 Mg PO QHS Tramadol Hcl (Tramadol HCl) 50 Mg Tablet 50 Mg PO PRN Q8HRS PRN Miralax (Polyethylene Glycol 3350) 17 Gm Powd.pack 1 Packet PO DAILY Orphenadrine Citrate 100 Mg Tablet.er 1 Tab PO PRN BID PRN Meclizine Hcl 25 Mg Tablet 12.5 Mg PO PRN TID PRN Levothyroxine Sodium 88 Mcg Tablet 88 Mcg PO DAILY06 Culturelle (Lactobacillus Rhamnosus Gg) 1 Each Cap.sprink 1 Each PO DAILY Mucinex (Guaifenesin) 600 Mg Tablet.er 1 Tab PO PRN BID PRN [place] 3 Fish Oil Softgel ([place]-3 Fatty Acids/Fish Oil) 1 Each Capsule.dr 1 Each PO DAILY PRN Ferrous Sulfate 325 Mg Tablet 325 Mg PO DAILY Coenzyme Q10 (Ubidecarenone) 100 Mg Capsule 100 Mg PO DAILY Vitamin D3 (Cholecalciferol (Vitamin D3)) 1,000 Unit Tablet 1 Tab PO DAILY Zyrtec (Cetirizine Hcl) 10 Mg Tablet 1 Tab PO PRN DAILY PRN Aspirin 81 Mg Tab.chew 81 Mg PO DAILY Ascorbic Acid 500 Mg Tablet 500 Mg PO DAILY I have reviewed the current psychotropics carefully including drug interactions. Risk benefit ratio favors no change other than as noted in my dictated progress note. Diagnosis: Problems: (1) Sepsis (2) Anxiety disorder (3) Urinary tract infection (4) Bipolar affective, mixed, sev w/ psych (5) Dehydration (6) Impulse control disorder (7) Bipolar disorder (8) Psychosis, atypical ZOFIA INFANTE MD Aug 18, 2018 22:58
[2018-08-18] MEDS ORDERED: ANTI-COAG MONITOR BY PHARMACY. MC PRN (23:30)
--- NOTE | 2018-08-19 01:07 | NUR ---
Nursing Note pt refusing HS meds, difficult to redirect, attempts to hit and kick staff on approach. Pt is hateful and mean verbally to staff, stating she wants to kill staff.
[2018-08-19] MEDS: LEVOTHYROXINE 88 MCG TABLET PO SCH ×2 (04:00→08:47)
[2018-08-19] MEDS: ALBUTEROL SULFATE 2.5 MG/3 ML NEBU. NEB SCH ×4 (05:46→20:48)
[2018-08-19 06:24] VITALS: BP 114/57
[2018-08-19] MEDS: BUDESONIDE 0.5 MG/2 ML NEBU NEB SCH ×2 (08:00→20:48)
--- NOTE | 2018-08-19 08:16 | NUR ---
PSYCHOSOCIAL ASSESSMENT ADMISSION DATE: 08/06/18 CONTACT INFORMATION: DPOA/Guardian Contact Name: Eleazar Carroll, spouse, guardian Contact Address: [facility] [address] [address] Contact Phone #: [phone] (cell), (home) ETHNIC ORIGIN: [place] REASONS FOR ADMISSION: Delusional, paranoid, flights of thoughts, agitated, refusing medications at times and to go to Dr.'s appointments ADDITIONAL ADMISSION COMMENTS: Spouse is unable to manage Yamel at home at this time. REASON FOR ADMISSION IN PATIENT/FAMILY'S OWN WORDS: For stabilization of mood and behavior PATIENT/FAMILY EXPECTATIONS FOR ADMISSION: Yamel to be stabilized in order to return home. If not, will consider placement. LIVING SITUATION: Patient lives with: Home with spouse Contact Name: Eleazar Carroll Contact Address: [address] [address] Contact Phone #: [phone] (cell) FAMILY RELATIONS: Marital Status: # of Marriages: 1, for 59 years. # of Children: 1 daugther Stephani Rios. Three grandchildren, 1 great grandchild. [facility] Family Support: Supportive, concerned Additional Comments r/t Family: Yamel and Ed met while square dancing as teens. They have been for 59 years. Ed shared that he was an alcoholic at one point but has been sober for the past 34 years. Ed reported Yamel to be strong willed and desired to be in control. SIGNIFICANT PSYCHIATRIC/MEDICAL HISTORY: Psychiatric/Treatment History: Yamel was hospitalized for two months in 1993 at [facility]. She was diagnosed with bipolar at around 53 years of age. She has been followed by Dr. Lima, psychiatrist, at [facility]. Pertinent Family History: Ed shared that Yamel's maternal grandmother and aunt likely suffered from undiagnosed mental illness. Yamel's granddaughter is diagnosed with bipolar. No substance abuse reported in family of origin. HISTORICAL DATA: Childhood Environment: Yamel was born in [place], [place] and later moved to [place]. Her father worked as a howard and mother worked as a typecasting machine operator. Yamel was an only child. Both parents are . Comment: Psychological Abuse: None reported. Drug Abuse History last 12 months: None. Yamel quit smoking in 2002. 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 Yamel does not drink alcohol. 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 Adventist background: Yamel is of the [place] which is of high importance to her. Sexual orientation: Heterosexual Educational Level: 12th grade Past/Present Interests/Hobbies: Dancing (particularly tap and ballet), dancing with spouse, enjoys children, and holiness involvement Financial support/resources: Yamel receives social security. Spouse reports adequate funds for the next 30 days. Monthly income: Unknown Person handling finances: Ed Glen, spouse Do you have a history of legal problems: None reported. Cultural considerations: None. SOCIAL RELATIONSHIPS-CURRENT/PAST: Psychiatrist: Dr. Lima, PCP: Dr. Nico Martínez, Counselor/Therapist: n/a [employer] [facility]: n/a Support Group: n/a Machine Stemmer/Parts Cataloguer: n/a Other relationships: Some involvement in holiness groups, spouse is supportive STRENGTHS & WEAKNESSES: Patient's strengths: Supportive family, verbal, positive marriage Patient's weaknesses: ME, exacerbation of paranoid and delusional thoughts Other patient weaknesses: Agitation to the point where spouse can not currently care for Yamel and had to seek guardianship. PRELIMINARY PLAN OF TREATMENT: Preliminary plan: Stabilization of mood/behaviors, medication adjustments and administration, encouragement to participate in social work and recreational therapy groups. DISCHARGE PLANNING: Discharge planning/disposition: To return home with spouse if possible. Otherwise, may seek placement. Additional discharge needs identified: Encouraged spouse to begin touring care facilities should placement be needed. ADDITIONAL INFORMATION: Other Pertinent Data: Obtained psychosocial information from spouse this date as Yamel's level of agitation was such that a conversation could not be had. Ed indicates that he is not planning on visiting Yamel at this time due to her level of agitation. He is willing to be involved in treatment team on 08/15/18. Daughter Stephani is also supportive and assisted Ed to get expedited guardianship. Tamar Lee is an [facility] social work program coordinator that has been assigned to Yamel's case, . Faxed CARE request to Skylar, media coordinator, as d/c location is uncertain and will relate to Yamel's needs at time of discharge. Addendum: 08/08/18 at 1413 by CHAIM ZAPATA FIONA reviewed and approves psychosocial assessment. Yamel was re-admitted to [facility] from [address] [place] [address] on 08/17/19. Her , Ed, will be involved in treatment team on 08/22/18.
[2018-08-19] MEDS: OMEGA-3 FATTY ACIDS/FISH OIL 1,000 MG CAPSULE. PO SCH (08:46)
[2018-08-19] MEDS: LACTOBACILLUS RHAMNOSUS GG 1 CAPSULE. PO SCH (08:46)
[2018-08-19] MEDS: CHOLECALCIFEROL (VITAMIN D3) 1,000 UNIT TABLET PO SCH (08:46)
[2018-08-19] MEDS: ASPIRIN 81 MG TAB.CHEW PO SCH (08:46)
[2018-08-19] MEDS: LITHIUM CARBONATE 300 MG TABLET PO SCH ×2 (08:46→22:01)
[2018-08-19] MEDS: FERROUS SULFATE 325 MG TABLET. PO SCH (08:46)
[2018-08-19] MEDS: AMOXICILLIN/K CLAV 500/125MG TABLET. PO SCH ×2 (08:46→22:00)
[2018-08-19] MEDS: DIVALPROEX 125 MG CAP.SPRINK PO SCH ×2 (08:47→22:01)
[2018-08-19] MEDS: ASCORBIC ACID 500 MG TABLET PO SCH (08:47)
[2018-08-19] MEDS: risperiDONE 1 MG TABLET. PO SCH ×2 (08:47→22:01)
[2018-08-19] MEDS: UBIDECARENONE 50 MG CAPSULE. PO SCH (08:47)
[2018-08-19] MEDS: ENOXAPARIN ** NOTE DOSE ** SYRINGE SQ SCH ×2 (08:48→21:00)
[2018-08-19] MEDS: POLYETHYLENE GLYCOL 3350 17 GM PACKET. PO SCH (08:55)
[2018-08-19] MEDS ORDERED: ENOXAPARIN ** NOTE DOSE ** SYRINGE SQ SCH (09:00)
--- NOTE | 2018-08-19 09:48 | NUR ---
Activity Therapy Assessment Pt. previously admitted to [facility] 08/06/2018. Current assessment remains valid (see below). Pt. using Broda chair this admit for unsteady gait. Pt. continues to have delusions, be rude and demanding with staff, and at times combative; resistive to meds unless hidden. Goal this admit: Pt. will participate in three groups or individual activities before discharge. Activity Therapy Assessment Completed based on observation, attempted interview, and [facility] notes. Pt. was sitting in the day room at the table, mumbling to herself when therapist approached. Patient's head was down as she spoke rapidly to herself and did not respond to therapist attempts to engage. Pt. continued to ramble incoherently and was unable to answer therapist questions. Spoke with Patient's nurse who confirmed that we are unable to determine Pt. cognitive functioning at this time due to the extreme manic state she is in. 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 Pt. has been unable to attend groups thus far as she has been combative, aggressive and yelling/cursing at staff since her admission. She seemed calmer this morning but is still hyperverbal and unable to participate. Initial goal set to increase emotional regulation skills: Pt. will attend one individual session with therapist before discharge.
--- NOTE | 2018-08-19 10:49 | NUR ---
Patient sitting in dining room, stating that she is not suppose to wear oxygen. "states I have never worn oxygen for 20 years" Patient observed to be having issues breathing, o2 sat 85% on Room Air. Spoke with patient about using oxygen and that she will not be able to go home unless she takes her medication and wears her oxygen. Patient agreed and took medications without issues.
--- NOTE | 2018-08-19 11:00 | NUR ---
Aide got nurse to come see patient, patient sitting in broda chair without oxygen on as she was being transfered from shower to hallway. Patient appears pale and not alert to situation. Vitals assessed and oxygen placed on patient. 161/[id number]% 2L oxygen. Patient aroused and asked when she could speak with her since it is Jackman gretchen and she will be busy today. Aide also stated that she had a XL bowel movement while in the shower but patient did start to act disoriented until being placed into the broda chair. Will notify Dr. Ray of patient status. Patient sitting in day room interacting at this time.
[2018-08-19 16:26] VITALS: BP 106/42
--- NOTE | 2018-08-19 19:00 | PDOC ---
Exam Note: Alessandro Note: Please also refer to the separate dictated note~for this date of service dictated separately.~Patient seen individually. Discussed the patient with Nursing staff reviewed the chart.~Reviewed interim history and current functioning. Reviewed vital signs,~Labs/ Radiology~and current medications noted below. Continue current treatment with the changes noted in the dictated addendum note Assessment: Vital Signs: Vital Signs Date Time Temp Pulse Resp B/P (MAP) Pulse Ox O2 Delivery O2 Flow Rate FiO2 08/19/18 16:26 97.8 70 18 106/42 (63) 100 Nasal Cannula 2.0 I&O Intake and Output 08/19/18 07:01 Intake Total 1680 ml Balance 1680 ml Intake Oral 1680 ml Current Medications: Meds: Current Medications Cefdinir (Omnicef) 300 mg BID PO Last administered on 08/17/18at 07:48; Start 08/16/18 at 21:00; Stop 08/17/18 at 16:47; Status DC Acetaminophen (Tylenol) 650 mg PRN Q6HRS PRN PO pain/temp; Start 08/16/18 at 19:00 Albuterol Sulfate (Ventolin) 2.5 mg RTQID NEB Last administered on 08/17/18at 05:11; Start 08/16/18 at 20:00 Ascorbic Acid (Vitamin C) 500 mg DAILY PO Last administered on 08/19/18at 08:47 ; Start 08/17/18 at 09:00 Cefdinir (Omnicef) 300 mg BID PO ; Start 08/16/18 at 21:00; Stop 08/16/18 at 21:00; Status DC Vitamin D (Vitamin D3) 1,000 unit DAILY PO Last administered on 08/19/18at 08: 46; Start 08/17/18 at 09:00 Ferrous Sulfate (Feosol) 325 mg DAILY PO Last administered on 08/19/18at 08:46 ; Start 08/17/18 at 09:00 Guaifenesin (Mucinex Er) 600 mg PRN BID PRN PO COUGH; Start 08/16/18 at 19:00 Lactobacillus Rhamnosus (Culturelle) 1 cap DAILY PO Last administered on at 08:46; Start 08/17/18 at 09:00 Levothyroxine Sodium (Synthroid) 88 mcg DAILY06 PO Last administered on at 08:47; Start 08/17/18 at 06:00 Multi-Ingredient Ointment (Analgesic [place]) 1 santosh PRN QID PRN TP muscle pain; Start 08/16/18 at 19:00 Olanzapine (ZyPREXA ZYDIS) 2.5 mg PRN Q2HR PRN PO ANXIETY / AGITATION; Start 08/16/18 at 19:00 Tramadol HCl (Ultram) 50 mg PRN Q8HRS PRN PO PAIN; Start 08/16/18 at 19:00 Aspirin (Children'S Aspirin) 81 mg DAILYWBKFT PO Last administered on at 08:46; Start 08/17/18 at 08:00 Non-Formulary Medication (Budesonide (Pulmicort)) 0.5 mg RTBID NEB ; Start at 20:00; Status UNV Cetirizine HCl (ZyrTEC) 10 mg PRN DAILY PRN PO ALLERGIES; Start 08/17/18 at 09 :00 Divalproex Sodium (Depakote Sprinkles) 500 mg QHS PO Last administered on 08/17at 19:40; Start 08/16/18 at 21:00; Stop 08/18/18 at 18:48; Status DC Gabapentin (Neurontin) 600 mg QHS PO Last administered on 08/17/18at 19:41; Start 08/16/18 at 21:00 Ipratropium [place] (Atrovent Nasal) 2 spray BID NS Last administered on at 07:55; Start 08/16/18 at 21:00; Stop 08/17/18 at 14:20; Status DC [place] Carbonate 150 mg DAILY PO Last administered on 08/19/18at 08:46; Start 08/17/18 at 09:00 [place] Carbonate 300 mg QHS PO Last administered on 08/17/18at 19:41; Start 08/16/18 at 21:00 Lorazepam (Ativan) 0.25 mg PRN QID PRN PO ANXIETY / AGITATION Last administered on 08/17/18at 00:53; Start 08/16/18 at 20:15 Al Hydroxide/Mg Hydroxide (Mylanta Plus Xs) 30 ml PRN AFTMEALHC PRN PO DYSPEPSIA; Start 08/16/18 at 20:15 Magnesium Hydroxide (Milk Of Magnesia) 2,400 mg PRN QHS PRN PO CONSTIPATION; Start 08/16/18 at 20:15 Meclizine HCl (Antivert) 12.5 mg PRN TID PRN PO DIZZINESS; Start 08/16/18 at 20:15 Fish Oil (Fish Oil) 1,000 mg DAILY PO Last administered on 08/19/18at 08:46; Start 08/17/18 at 09:00 Orphenadrine Citrate (Norflex Er) 100 mg PRN BID PRN PO MUSCLE SPASMS; Start 08/16/18 at 20:15 Polyethylene Glycol (miraLAX) 17 gm DAILY PO Last administered on 08/18/18 07 :51; Start 08/17/18 at 09:00 Quetiapine Fumarate (SEROquel) 25 mg QHS PO Last administered on 08/17/18at 19: 41; Start 08/16/18 at 21:00 Risperidone (RisperDAL) 1 mg BID PO Last administered on 08/19/18at 08:47; Start 08/16/18 at 21:00 Coenzyme Q10 (Coenzyme Q10) 100 mg DAILY PO Last administered on 08/19/18at 08: 47; Start 08/17/18 at 09:00 Budesonide (Pulmicort) 0.5 mg RTBID NEB ; Start 08/17/18 at 08:00 Ipratropium [place] (Atrovent Nasal) 2 spray PRN BID PRN NS ALLERGIES; Start 08/17/18 at 14:30 Amoxicillin/ Clavulanate Potassium (Augmentin 500/ 125mg) 1 tab BID PO Last administered on 08/19/18at 08:46; Start 08/17/18 at 21:00; Stop 08/22/18 at 20 :59 Enoxaparin Sodium (Lovenox 60mg Syringe) 60 mg Q12HR SQ Last administered on at 09:40; Start 08/17/18 at 21:00; Stop 08/18/18 at 13:25; Status DC Iohexol (Omnipaque 300 Mg/ml) 75 ml 1X ONCE IV Last administered on at 11:57; Start 08/18/18 at 08:15; Stop 08/18/18 at 08:29; Status DC Apixaban (Eliquis) 10 mg BID PO Last administered on 08/18/18at 20:17; Start 08/18/18 at 21:00; Stop 08/18/18 at 22:41; Status DC Apixaban (Eliquis) 5 mg BID PO ; Start 08/26/18 at 09:00; Stop 08/26/18 at 09: 00; Status DC Divalproex Sodium (Depakote Sprinkles) 500 mg BID PO Last administered on 08/19at 08:47; Start 08/18/18 at 21:00 Enoxaparin Sodium (Lovenox 60mg Syringe) 60 mg Q12HR SQ ; Start 08/19/18 at 09: 00; Stop 08/19/18 at 09:00; Status DC Enoxaparin Sodium (Lovenox 60mg Syringe) 60 mg Q12HR SQ Last administered on at 08:48; Start 08/18/18 at 23:30 Info (Anti-Coagulation Monitoring By Pharmacy) 1 each PRN DAILY PRN MC SEE COMMENTS; Start 08/18/18 at 23:30 Active Scripts Active Cefdinir 300 Mg Capsule 1 Cap PO BID 5 Days Reported Risperidone 1 Mg Tablet 1 Mg PO BID Zyprexa Zydis (Olanzapine) 5 Mg Tab.rapdis 2.5 Mg PO PRN Q2HR PRN Analgesic [place] (Methyl Salicylate/Menthol) 28 Gm Oint...g. 1 [place] TP PRN QID PRN Milk Of Magnesia (Magnesium Hydroxide) 2,400 Mg/10 Ml Oral.susp 2,400 Mg PO PRN QHS PRN [place] Liquid (Mag Hydrox/Al Hydrox/Simeth) 360 Ml Oral.susp 15 Ml PO PRN AFTMEALHC PRN Lorazepam 0.5 Mg Tablet 0.25 Mg PO PRN QID PRN [place] Carbonate 150 Mg Capsule 150 Mg PO DAILY Gabapentin 600 Mg Tablet 600 Mg PO QHS Depakote Sprinkle (Divalproex Sodium) 125 Mg Cap.sprink 500 Mg PO QHS Pulmicort (Budesonide) 0.5 Mg/2 Ml Ampul.neb 0.5 Mg NEB RTBID Albuterol Sulfate Neb Soln (Albuterol Sulfate) 2.5 Mg/3 Ml Vial.neb 2.5 Mg NEB RTQID Tylenol (Acetaminophen) 325 Mg Tablet 650 Mg PO PRN Q6HRS PRN [place] Carbonate 300 Mg Tablet 300 Mg PO HS Ipratropium [place] 30 Ml [place] 30 Ml NS BID Seroquel (Quetiapine Fumarate) 25 Mg Tablet 25 Mg PO QHS Tramadol Hcl (Tramadol HCl) 50 Mg Tablet 50 Mg PO PRN Q8HRS PRN Miralax (Polyethylene Glycol 3350) 17 Gm Powd.pack 1 Packet PO DAILY Orphenadrine Citrate 100 Mg Tablet.er 1 Tab PO PRN BID PRN Meclizine Hcl 25 Mg Tablet 12.5 Mg PO PRN TID PRN Levothyroxine Sodium 88 Mcg Tablet 88 Mcg PO DAILY06 Culturelle (Lactobacillus Rhamnosus Gg) 1 Each Cap.sprink 1 Each PO DAILY Mucinex (Guaifenesin) 600 Mg Tablet.er 1 Tab PO PRN BID PRN [place] 3 Fish Oil Softgel ([place]-3 Fatty Acids/Fish Oil) 1 Each Capsule.dr 1 Each PO DAILY PRN Ferrous Sulfate 325 Mg Tablet 325 Mg PO DAILY Coenzyme Q10 (Ubidecarenone) 100 Mg Capsule 100 Mg PO DAILY Vitamin D3 (Cholecalciferol (Vitamin D3)) 1,000 Unit Tablet 1 Tab PO DAILY Zyrtec (Cetirizine Hcl) 10 Mg Tablet 1 Tab PO PRN DAILY PRN Aspirin 81 Mg Tab.chew 81 Mg PO DAILY Ascorbic Acid 500 Mg Tablet 500 Mg PO DAILY I have reviewed the current psychotropics carefully including drug interactions. Risk benefit ratio favors no change other than as noted in my dictated progress note. Diagnosis: Problems: (1) Sepsis (2) Anxiety disorder (3) Urinary tract infection (4) Bipolar affective, mixed, sev w/ psych (5) Dehydration (6) Impulse control disorder (7) Bipolar disorder (8) Psychosis, atypical ZOFIA INFANTE MD Aug 19, 2018 19:00
[2018-08-19] MEDS: QUEtiapine 25 MG TABLET. PO SCH (22:01)
[2018-08-19] MEDS: GABAPENTIN 300 MG CAPSULE. PO SCH (22:02)
--- NOTE | 2018-08-19 22:34 | NUR ---
Patient very resistive and non-compliant with medication and cares this hs. Patient refused her breathing tx after several attempts to get patient to take them by myself, charge nurse, other staff and nurse garden center manager, she stated she does not need the breathing tx. Patient stated she is only taking her lithium because the others are bad for her. Provided patient education regarding the benefits of taking all meds consistently but she still declined to take them. Patient was given the rest of her meds hidden in her drink. Will continue to monitor patient.
--- NOTE | 2018-08-20 00:30 | NUR ---
Behavior Intervention Response and Plan: BIRP Note: Behavior: Assumed Care of patient, patient located in Day Room at shift change. Patient exhibited the following behavior Interactive, Non Compliant with Meds, Disorganized. Brief assessment on rounds of vital signs, medication needs, lab studies, and pain. Treatment plan problems . Intervention: Patient assessed and the following interventions initiated safety checks 15 Minute Checks Personal Alarm in place , Call snyder in reach , Call snyder in reach. Response: After interactions and interventions patient responded in the following manner, Interactive , Disorganized ,Non Compliant with Meds. Continue to assess behaviors and condition will continue to monitor throughout the shift as needed. Patient educated on ADL's, and hand hygiene. Plan: Continue to monitor Master Treatment Plan for patient's progress toward short term goals of Medication Compliance, Improved Mood, care home goals to return to previous living setting vs placement. Continue to assess patient for changes in above assessment. Monitor for medication needs, pain, and safety concerns. Hourly rounding performed to ensure safe environment.
[2018-08-20 05:08] VITALS: BP 147/67
[2018-08-20] MEDS: LEVOTHYROXINE 88 MCG TABLET PO SCH (05:33)
[2018-08-20] MEDS: ALBUTEROL SULFATE 2.5 MG/3 ML NEBU. NEB SCH ×4 (06:00→20:00)
[2018-08-20] MEDS: OMEGA-3 FATTY ACIDS/FISH OIL 1,000 MG CAPSULE. PO SCH (07:46)
[2018-08-20] MEDS: POLYETHYLENE GLYCOL 3350 17 GM PACKET. PO SCH (07:46)
[2018-08-20] MEDS: DIVALPROEX 125 MG CAP.SPRINK PO SCH ×2 (07:47→18:54)
[2018-08-20] MEDS: ASCORBIC ACID 500 MG TABLET PO SCH (07:47)
[2018-08-20] MEDS: LITHIUM CARBONATE 300 MG TABLET PO SCH ×2 (07:47→18:54)
[2018-08-20] MEDS: FERROUS SULFATE 325 MG TABLET. PO SCH (07:47)
[2018-08-20] MEDS: ASPIRIN 81 MG TAB.CHEW PO SCH (07:47)
[2018-08-20] MEDS: AMOXICILLIN/K CLAV 500/125MG TABLET. PO SCH ×2 (07:47→18:54)
[2018-08-20] MEDS: CHOLECALCIFEROL (VITAMIN D3) 1,000 UNIT TABLET PO SCH (07:47)
[2018-08-20] MEDS: UBIDECARENONE 50 MG CAPSULE. PO SCH (07:48)
[2018-08-20] MEDS: risperiDONE 1 MG TABLET. PO SCH ×2 (07:49→18:54)
[2018-08-20] MEDS: LACTOBACILLUS RHAMNOSUS GG 1 CAPSULE. PO SCH (07:49)
[2018-08-20] MEDS: ENOXAPARIN ** NOTE DOSE ** SYRINGE SQ SCH ×2 (07:53→18:55)
[2018-08-20] MEDS: BUDESONIDE 0.5 MG/2 ML NEBU NEB SCH ×2 (08:00→20:00)
--- NOTE | 2018-08-20 09:47 | NUR ---
Behavior Intervention Response and Plan: BIRP Note: Behavior: Assumed Care of patient, patient located in Dining Room at shift change. Patient exhibited the following behavior Restless, Demanding, Irritable. Brief assessment on rounds of vital signs, medication needs, lab studies, and pain. Treatment plan problems . Intervention: Patient assessed and the following interventions initiated safety checks 15 Minute Checks Cognitive Assessment , Head to toe Assessment , Medications. Response: After interactions and interventions patient responded in the following manner, Restless , Attention Seeking ,Disorganized. Continue to assess behaviors and condition will continue to monitor throughout the shift as needed. Patient educated on ADL's, and hand hygiene. 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 Continue to assess patient for changes in above assessment. Monitor for medication needs, pain, and safety concerns. Hourly rounding performed to ensure safe environment.
[2018-08-20 16:53] VITALS: BP 103/59
--- NOTE | 2018-08-20 17:33 | NUR ---
pt up in broda for meals. has been awake and alert. still paranoid and confused at times. Up to BR in afternoon vasal vagal and passed out while having a BM. assisted to chair. here and he was upset with episode. Pt VSS. pt wants to attend treatment team meeting if possible. stated he doesn't do well on conference calls. LM for BENNY.
--- NOTE | 2018-08-20 18:24 | PN ---
DATE: 08/19/2018 PSYCHIATRIC PROGRESS NOTE This late entry 08/19/2018 covers elements not covered in my initial note. SUBJECTIVE: On 08/18/2018, had completed a several page guardianship form on the patient, which was sent in by her workers compensation attorney for a court hearing early this coming week. This note incorporates that. The patient slept 3 hours previous night. Anxious, restless, labile in her mood, wanting to leave. REVIEW OF SYSTEMS: Ambulation impaired, in Broda chair. No CV, , pulmonary, eye system symptoms on review. MENTAL STATUS EXAM: Oriented to herself and situation. Speech is coherent, rapid at times. Abstraction fair, computation impaired, language function is intact. Mood and affect remain somewhat labile, psychotic. LABORATORY DATA: Reviewed. IMPRESSION: Unchanged from initial note. PLAN: No change from additional. Depakote is being adjusted to reach therapeutic level. [place] level is therapeutic. Will repeat it. ZOFIA INFANTE MD DR: CASTILLO/caleb JOB#: [id number] / [id number]
--- NOTE | 2018-08-20 18:25 | PN ---
DATE: 08/18/2018 This late entry 08/18/2018 covers elements not covered in my initial note. SUBJECTIVE: I met with the patient in the afternoon/evening. The patient slept 3-1/4 hours previous evening, remains confused, somewhat hyperverbal. We will defer to Dr. Ray for medical followup. She had a CT angiogram of the lungs. REVIEW OF SYSTEMS: D-dimer increased to 6. She is somewhat demanding takes meds in Boost. She is on Lovenox and has been changed to Eliquis for 6 months. [place] level with increased lithium dosage at 0.8 and we will repeat level in 2 days. Valproic acid level subtherapeutic at 14 and we will increase the Depakote from 500 mg at bedtime to 500 mg twice a day. Check CBC, CMP, valproic acid level in 3 days with a plan to reach therapeutic level. REVIEW OF SYSTEMS: Ambulation impaired, in Broda chair. No CV, , pulmonary, eye system symptoms on review. MENTAL STATUS EXAMINATION: Oriented to herself and situation. Speech has some latency, coherent, rapid at times. Abstraction fair, computation impaired, language function intact, attention span short. Mood and affect labile. Remains quite delusional as I questioned her. Fixated and wanting to go home, oblivious of the circumstances. LABORATORY DATA: Reviewed. IMPRESSION: Bipolar 1 disorder, mixed with psychotic features; cognitive disorder, unspecified. Rest unchanged. PLAN: Continue current psychotropics, increase the Depakote. Follow labs. Rest unchanged from before. ZOFIA INFANTE MD DR: CASTILLO/caleb JOB#: [id number] / [id number]
[2018-08-20] MEDS: GABAPENTIN 300 MG CAPSULE. PO SCH (18:54)
[2018-08-20] MEDS: QUEtiapine 25 MG TABLET. PO SCH (18:54)
--- NOTE | 2018-08-20 19:07 | PDOC ---
Exam Note: Alessandro Note: Please also refer to the separate dictated note~for this date of service dictated separately.~Patient seen individually. Discussed the patient with Nursing staff reviewed the chart.~Reviewed interim history and current functioning. Reviewed vital signs,~Labs/ Radiology~and current medications noted below. Continue current treatment with the changes noted in the dictated addendum note Assessment: Vital Signs: Vital Signs Date Time Temp Pulse Resp B/P (MAP) Pulse Ox O2 Delivery O2 Flow Rate FiO2 08/20/18 16:53 97.3 62 19 103/59 (74) 87 08/20/18 05:08 Nasal Cannula 2.0 I&O Intake and Output 08/20/18 07:01 Intake Total 1200 ml Balance 1200 ml Intake Oral 1200 ml # Bowel Movements 1 Labs: Laboratory Tests Test 08/20/18 06:50 [place] Level 0.8 mmol/L (0.6-1.2) [place] Last Dose Date 08/19/18 [place] Last Dose Time 2100 Current Medications: Meds: Current Medications Cefdinir (Omnicef) 300 mg BID PO Last administered on 08/17/18at 07:48; Start 08/16/18 at 21:00; Stop 08/17/18 at 16:47; Status DC Acetaminophen (Tylenol) 650 mg PRN Q6HRS PRN PO pain/temp; Start 08/16/18 at 19:00 Albuterol Sulfate (Ventolin) 2.5 mg RTQID NEB Last administered on 08/17/18at 05:11; Start 08/16/18 at 20:00 Ascorbic Acid (Vitamin C) 500 mg DAILY PO Last administered on 08/20/18at 07:47 ; Start 08/17/18 at 09:00 Cefdinir (Omnicef) 300 mg BID PO ; Start 08/16/18 at 21:00; Stop 08/16/18 at 21:00; Status DC Vitamin D (Vitamin D3) 1,000 unit DAILY PO Last administered on 08/20/18at 07: 47; Start 08/17/18 at 09:00 Ferrous Sulfate (Feosol) 325 mg DAILY PO Last administered on 08/20/18at 07:47 ; Start 08/17/18 at 09:00 Guaifenesin (Mucinex Er) 600 mg PRN BID PRN PO COUGH; Start 08/16/18 at 19:00 Lactobacillus Rhamnosus (Culturelle) 1 cap DAILY PO Last administered on 07:49; Start 08/17/18 at 09:00 Levothyroxine Sodium (Synthroid) 88 mcg DAILY06 PO Last administered on 05:33; Start 08/17/18 at 06:00 Multi-Ingredient Ointment (Analgesic [place]) 1 santosh PRN QID PRN TP muscle pain; Start 08/16/18 at 19:00 Olanzapine (ZyPREXA ZYDIS) 2.5 mg PRN Q2HR PRN PO ANXIETY / AGITATION; Start 08/16/18 at 19:00 Tramadol HCl (Ultram) 50 mg PRN Q8HRS PRN PO PAIN; Start 08/16/18 at 19:00 Aspirin (Children'S Aspirin) 81 mg DAILYWBKFT PO Last administered on 07:47; Start 08/17/18 at 08:00 Non-Formulary Medication (Budesonide (Pulmicort)) 0.5 mg RTBID NEB ; Start at 20:00; Status UNV Cetirizine HCl (ZyrTEC) 10 mg PRN DAILY PRN PO ALLERGIES; Start 08/17/18 at 09 :00 Divalproex Sodium (Depakote Sprinkles) 500 mg QHS PO Last administered on 08/17at 19:40; Start 08/16/18 at 21:00; Stop 08/18/18 at 18:48; Status DC Gabapentin (Neurontin) 600 mg QHS PO Last administered on 08/20/18at 18:54; Start 08/16/18 at 21:00 Ipratropium [place] (Atrovent Nasal) 2 spray BID NS Last administered on at 07:55; Start 08/16/18 at 21:00; Stop 08/17/18 at 14:20; Status DC [place] Carbonate 150 mg DAILY PO Last administered on 08/20/18 07:47; Start 08/17/18 at 09:00 [place] Carbonate 300 mg QHS PO Last administered on 08/20/18at 18:54; Start 08/16/18 at 21:00 Lorazepam (Ativan) 0.25 mg PRN QID PRN PO ANXIETY / AGITATION Last administered on 08/17/18at 00:53; Start 08/16/18 at 20:15 Al Hydroxide/Mg Hydroxide (Mylanta Plus Xs) 30 ml PRN AFTMEALHC PRN PO DYSPEPSIA; Start 08/16/18 at 20:15 Magnesium Hydroxide (Milk Of Magnesia) 2,400 mg PRN QHS PRN PO CONSTIPATION; Start 08/16/18 at 20:15 Meclizine HCl (Antivert) 12.5 mg PRN TID PRN PO DIZZINESS; Start 08/16/18 at 20:15 Fish Oil (Fish Oil) 1,000 mg DAILY PO Last administered on 08/20/18 07:46; Start 08/17/18 at 09:00 Orphenadrine Citrate (Norflex Er) 100 mg PRN BID PRN PO MUSCLE SPASMS; Start 08/16/18 at 20:15 Polyethylene Glycol (miraLAX) 17 gm DAILY PO Last administered on 08/20/18 07 :46; Start 08/17/18 at 09:00 Quetiapine Fumarate (SEROquel) 25 mg QHS PO Last administered on 08/20/18 18: 54; Start 08/16/18 at 21:00 Risperidone (RisperDAL) 1 mg BID PO Last administered on 08/20/18 18:54; Start 08/16/18 at 21:00 Coenzyme Q10 (Coenzyme Q10) 100 mg DAILY PO Last administered on 08/20/18at 07: 48; Start 08/17/18 at 09:00 Budesonide (Pulmicort) 0.5 mg RTBID NEB ; Start 08/17/18 at 08:00 Ipratropium [place] (Atrovent Nasal) 2 spray PRN BID PRN NS ALLERGIES; Start 08/17/18 at 14:30 Amoxicillin/ Clavulanate Potassium (Augmentin 500/ 125mg) 1 tab BID PO Last administered on 08/20/18 18:54; Start 08/17/18 at 21:00; Stop 08/22/18 at 20 :59 Enoxaparin Sodium (Lovenox 60mg Syringe) 60 mg Q12HR SQ Last administered on at 09:40; Start 08/17/18 at 21:00; Stop 08/18/18 at 13:25; Status DC Iohexol (Omnipaque 300 Mg/ml) 75 ml 1X ONCE IV Last administered on at 11:57; Start 08/18/18 at 08:15; Stop 08/18/18 at 08:29; Status DC Apixaban (Eliquis) 10 mg BID PO Last administered on 08/18/18at 20:17; Start 08/18/18 at 21:00; Stop 08/18/18 at 22:41; Status DC Apixaban (Eliquis) 5 mg BID PO ; Start 08/26/18 at 09:00; Stop 08/26/18 at 09: 00; Status DC Divalproex Sodium (Depakote Sprinkles) 500 mg BID PO Last administered on 08/20at 18:54; Start 08/18/18 at 21:00 Enoxaparin Sodium (Lovenox 60mg Syringe) 60 mg Q12HR SQ ; Start 08/19/18 at 09: 00; Stop 08/19/18 at 09:00; Status DC Enoxaparin Sodium (Lovenox 60mg Syringe) 60 mg Q12HR SQ Last administered on at 18:55; Start 08/18/18 at 23:30 Info (Anti-Coagulation Monitoring By Pharmacy) 1 each PRN DAILY PRN [facility] SEE COMMENTS; Start 08/18/18 at 23:30 Active Scripts Active Cefdinir 300 Mg Capsule 1 Cap PO BID 5 Days Reported Risperidone 1 Mg Tablet 1 Mg PO BID Zyprexa Zydis (Olanzapine) 5 Mg Tab.rapdis 2.5 Mg PO PRN Q2HR PRN Analgesic [place] (Methyl Salicylate/Menthol) 28 Gm Oint...g. 1 [place] TP PRN QID PRN Milk Of Magnesia (Magnesium Hydroxide) 2,400 Mg/10 Ml Oral.susp 2,400 Mg PO PRN QHS PRN [place] Liquid (Mag Hydrox/Al Hydrox/Simeth) 360 Ml Oral.susp 15 Ml PO PRN AFTMEALHC PRN Lorazepam 0.5 Mg Tablet 0.25 Mg PO PRN QID PRN [place] Carbonate 150 Mg Capsule 150 Mg PO DAILY Gabapentin 600 Mg Tablet 600 Mg PO QHS Depakote Sprinkle (Divalproex Sodium) 125 Mg Cap.sprink 500 Mg PO QHS Pulmicort (Budesonide) 0.5 Mg/2 Ml Ampul.neb 0.5 Mg NEB RTBID Albuterol Sulfate Neb Soln (Albuterol Sulfate) 2.5 Mg/3 Ml Vial.neb 2.5 Mg NEB RTQID Tylenol (Acetaminophen) 325 Mg Tablet 650 Mg PO PRN Q6HRS PRN [place] Carbonate 300 Mg Tablet 300 Mg PO HS Ipratropium [place] 30 Ml [place] 30 Ml NS BID Seroquel (Quetiapine Fumarate) 25 Mg Tablet 25 Mg PO QHS Tramadol Hcl (Tramadol HCl) 50 Mg Tablet 50 Mg PO PRN Q8HRS PRN Miralax (Polyethylene Glycol 3350) 17 Gm Powd.pack 1 Packet PO DAILY Orphenadrine Citrate 100 Mg Tablet.er 1 Tab PO PRN BID PRN Meclizine Hcl 25 Mg Tablet 12.5 Mg PO PRN TID PRN Levothyroxine Sodium 88 Mcg Tablet 88 Mcg PO DAILY06 Culturelle (Lactobacillus Rhamnosus Gg) 1 Each Cap.sprink 1 Each PO DAILY Mucinex (Guaifenesin) 600 Mg Tablet.er 1 Tab PO PRN BID PRN [place] 3 Fish Oil Softgel ([place]-3 Fatty Acids/Fish Oil) 1 Each Capsule.dr 1 Each PO DAILY PRN Ferrous Sulfate 325 Mg Tablet 325 Mg PO DAILY Coenzyme Q10 (Ubidecarenone) 100 Mg Capsule 100 Mg PO DAILY Vitamin D3 (Cholecalciferol (Vitamin D3)) 1,000 Unit Tablet 1 Tab PO DAILY Zyrtec (Cetirizine Hcl) 10 Mg Tablet 1 Tab PO PRN DAILY PRN Aspirin 81 Mg Tab.chew 81 Mg PO DAILY Ascorbic Acid 500 Mg Tablet 500 Mg PO DAILY I have reviewed the current psychotropics carefully including drug interactions. Risk benefit ratio favors no change other than as noted in my dictated progress note. Diagnosis: Problems: (1) Sepsis (2) Anxiety disorder (3) Urinary tract infection (4) Bipolar affective, mixed, sev w/ psych (5) Dehydration (6) Impulse control disorder (7) Bipolar disorder (8) Psychosis, atypical ZOFIA INFANTE MD Aug 20, 2018 19:07
--- NOTE | 2018-08-20 20:08 | NUR ---
Pt is refusing breathing treatments. If pressed to take one she will start swinging arms or kicking with feet. I am able to give a blow by treatment in the morning if I catch her while she is sleeping.
--- NOTE | 2018-08-20 21:19 | NUR ---
Behavior Intervention Response and Plan: BIRP Note: Behavior: Assumed Care of patient, patient located in Day Room at shift change. Patient exhibited the following behavior Calm, Able to Focus on Task, Compliant. Brief assessment on rounds of vital signs, medication needs, lab studies, and pain. Treatment plan problems . Intervention: Patient assessed and the following interventions initiated safety checks 15 Minute Checks Head to toe Assessment , Cognitive Assessment , Medications. Response: After interactions and interventions patient responded in the following manner, Resistive , Cooperative ,Delusions. Continue to assess behaviors and condition will continue to monitor throughout the shift as needed. Patient educated on ADL's, and hand hygiene. 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 Continue to assess patient for changes in above assessment. Monitor for medication needs, pain, and safety concerns. Hourly rounding performed to ensure safe environment.
[2018-08-21] MEDS: ALBUTEROL SULFATE 2.5 MG/3 ML NEBU. NEB SCH ×2 (05:27→10:24)
[2018-08-21 05:49] VITALS: BP 101/63
[2018-08-21] MEDS: LEVOTHYROXINE 88 MCG TABLET PO SCH (06:12)
[2018-08-21] MEDS: BUDESONIDE 0.5 MG/2 ML NEBU NEB SCH (08:00)
[2018-08-21 08:06] LABS: BASO % 0 % (0-3); EOS # 0.3 x10^3/uL (0.0-0.7); EOS % 3 % (0-3); HEMOGLOBIN 7.8 g/dL (12.0-15.5); LYMPH # 1.7 x10^3/uL (1.0-4.8); LYMPH % 17 % (24-48); MEAN CORPUSCULAR HEMOGLOBIN 32 pg (25-35); MEAN CORPUSCULAR HGB CONC 33 g/dL (31-37); MEAN CORPUSCULAR VOLUME 97 fL (79-100); MONO % 10 % (0-9); NEUT % 70 % (31-73); PLATELET COUNT 201 x10^3/uL (140-400); RED BLOOD COUNT 2.47 x10^6/uL (3.50-5.40); RED CELL DISTRIBUTION WIDTH 14.6 % (11.5-14.5)
[2018-08-21 08:19] LABS: ALBUMIN 2.1 g/dL (3.4-5.0); ALBUMIN/GLOBULIN RATIO 0.6 (1.0-1.7); GFR 53.8; POTASSIUM 4.8 mmol/L (3.5-5.1); TOTAL BILIRUBIN 0.1 mg/dL (0.2-1.0); TOTAL PROTEIN 5.9 g/dL (6.4-8.2)
[2018-08-21 08:47] LABS: VAL ACID 19 mcg/mL (50-100)
--- NOTE | 2018-08-21 09:50 | NUR ---
Behavior Intervention Response and Plan: BIRP Note: Behavior: Assumed Care of patient, patient located in Day Room at shift change. Patient exhibited the following behavior Restless, Disorganized, Delusional. Brief assessment on rounds of vital signs, medication needs, lab studies, and pain. Treatment plan problems 1 & 2. Intervention: Patient assessed and the following interventions initiated safety checks 15 Minute Checks Cognitive Assessment , Head to toe Assessment , Medications. Response: After interactions and interventions patient responded in the following manner, Compulsive , Restless ,Cooperative. Continue to assess behaviors and condition will continue to monitor throughout the shift as needed. Patient educated on ADL's, and hand hygiene. 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 Continue to assess patient for changes in above assessment. Monitor for medication needs, pain, and safety concerns. Hourly rounding performed to ensure safe environment.
[2018-08-21] MEDS: LACTOBACILLUS RHAMNOSUS GG 1 CAPSULE. PO SCH ×2 (09:59→10:00)
[2018-08-21] MEDS: DIVALPROEX 125 MG CAP.SPRINK PO SCH (09:59)
[2018-08-21] MEDS: UBIDECARENONE 50 MG CAPSULE. PO SCH ×2 (09:59→10:00)
[2018-08-21] MEDS: AMOXICILLIN/K CLAV 500/125MG TABLET. PO SCH (09:59)
[2018-08-21] MEDS: ASCORBIC ACID 500 MG TABLET PO SCH ×2 (09:59→10:00)
[2018-08-21] MEDS: OMEGA-3 FATTY ACIDS/FISH OIL 1,000 MG CAPSULE. PO SCH ×2 (09:59→10:00)
[2018-08-21] MEDS: CHOLECALCIFEROL (VITAMIN D3) 1,000 UNIT TABLET PO SCH ×2 (09:59→10:00)
[2018-08-21] MEDS: ASPIRIN 81 MG TAB.CHEW PO SCH (09:59)
[2018-08-21] MEDS: risperiDONE 1 MG TABLET. PO SCH (09:59)
[2018-08-21] MEDS: LITHIUM CARBONATE 300 MG TABLET PO SCH (10:00)
[2018-08-21] MEDS: FERROUS SULFATE 325 MG TABLET. PO SCH (10:00)
[2018-08-21] MEDS: POLYETHYLENE GLYCOL 3350 17 GM PACKET. PO SCH (10:00)
[2018-08-21] MEDS: ENOXAPARIN ** NOTE DOSE ** SYRINGE SQ SCH (10:01)
--- NOTE | 2018-08-21 10:24 | NUR ---
Faxed physician completed report of examination and evaluation to Erick Cline at [facility] for upcoming court hearing regarding guardianship for Yamel. Call placed to Ed, spouse, who plans to attend treatment team on 08/23/18, at 11:45am. Ed will sign the CARE assessment forms at that time as well.
[2018-08-21 16:52] VITALS: BP 131/72
--- NOTE | 2018-08-21 18:15 | NUR ---
Patient has had at least two syncopal episodes today and her labs have not improved. During rounds, MD has ordered [facility]. Will notify house worker and [facility].
--- NOTE | 2018-08-21 18:50 | PDOC ---
Exam Note: Alessandro Note: Please also refer to the separate dictated note~for this date of service dictated separately.~Patient seen individually. Discussed the patient with Nursing staff reviewed the chart.~Reviewed interim history and current functioning. Reviewed vital signs,~Labs/ Radiology~and current medications noted below. Continue current treatment with the changes noted in the dictated addendum note Assessment: Vital Signs: Vital Signs Date Time Temp Pulse Resp B/P (MAP) Pulse Ox O2 Delivery O2 Flow Rate FiO2 08/21/18 16:52 98.7 66 24 131/72 (91) 98 2.0 08/21/18 05:49 Nasal Cannula I&O Intake and Output 08/21/18 07:01 Intake Total 1200 ml Balance 1200 ml Intake Oral 1200 ml Labs: Laboratory Tests Test 08/21/18 07:17 White Blood Count 10.0 x10^3/uL (4.0-11.0) Red Blood Count 2.47 x10^6/uL (3.50-5.40) L Hemoglobin 7.8 g/dL (12.0-15.5) L Hematocrit 24.0 % (36.0-47.0) L Mean Corpuscular Volume 97 fL (79-100) Mean Corpuscular Hemoglobin 32 pg (25-35) Mean Corpuscular Hemoglobin Concent 33 g/dL (31-37) Red Cell Distribution Width 14.6 % (11.5-14.5) H Platelet Count 201 x10^3/uL (140-400) Neutrophils (%) (Auto) 70 % (31-73) Lymphocytes (%) (Auto) 17 % (24-48) L Monocytes (%) (Auto) 10 % (0-9) H Eosinophils (%) (Auto) 3 % (0-3) Basophils (%) (Auto) 0 % (0-3) Neutrophils # (Auto) 7.0 x10^3uL (1.8-7.7) Lymphocytes # (Auto) 1.7 x10^3/uL (1.0-4.8) Monocytes # (Auto) 1.0 x10^3/uL (0.0-1.1) Eosinophils # (Auto) 0.3 x10^3/uL (0.0-0.7) Basophils # (Auto) 0.0 x10^3/uL (0.0-0.2) Sodium Level 144 mmol/L (136-145) Potassium Level 4.8 mmol/L (3.5-5.1) Chloride Level 108 mmol/L (98-107) H Carbon Dioxide Level 32 mmol/L (21-32) Anion Gap 4 (6-14) L Blood Urea Nitrogen 27 mg/dL (7-20) H Creatinine 1.0 mg/dL (0.6-1.0) Estimated GFR (Cockcroft-Gault) 53.8 BUN/Creatinine Ratio 27 (6-20) H Glucose Level 112 mg/dL (70-99) H Calcium Level 9.0 mg/dL (8.5-10.1) Total Bilirubin 0.1 mg/dL (0.2-1.0) L Aspartate Amino Transferase (AST) 28 U/L (15-37) Alanine Aminotransferase (ALT) 58 U/L (14-59) Alkaline Phosphatase 69 U/L (46-116) Total Protein 5.9 g/dL (6.4-8.2) L Albumin 2.1 g/dL (3.4-5.0) L Albumin/Globulin Ratio 0.6 (1.0-1.7) L Valproic Acid Level 19 mcg/mL (50-100) L Valproic Acid Last Dose Date 08/20/2018 Valproic Acid Last Dose Time 2100 Current Medications: Meds: Current Medications Cefdinir (Omnicef) 300 mg BID PO Last administered on 08/17/18at 07:48; Start 08/16/18 at 21:00; Stop 08/17/18 at 16:47; Status DC Acetaminophen (Tylenol) 650 mg PRN Q6HRS PRN PO pain/temp; Start 08/16/18 at 19:00 Albuterol Sulfate (Ventolin) 2.5 mg RTQID NEB Last administered on 08/21/18at 05:27; Start 08/16/18 at 20:00 Ascorbic Acid (Vitamin C) 500 mg DAILY PO Last administered on 08/20/18at 07:47 ; Start 08/17/18 at 09:00 Cefdinir (Omnicef) 300 mg BID PO ; Start 08/16/18 at 21:00; Stop 08/16/18 at 21:00; Status DC Vitamin D (Vitamin D3) 1,000 unit DAILY PO Last administered on 08/20/18at 07: 47; Start 08/17/18 at 09:00 Ferrous Sulfate (Feosol) 325 mg DAILY PO Last administered on 08/20/18at 07:47 ; Start 08/17/18 at 09:00 Guaifenesin (Mucinex Er) 600 mg PRN BID PRN PO COUGH; Start 08/16/18 at 19:00 Lactobacillus Rhamnosus (Culturelle) 1 cap DAILY PO Last administered on at 07:49; Start 08/17/18 at 09:00 Levothyroxine Sodium (Synthroid) 88 mcg DAILY06 PO Last administered on at 06:12; Start 08/17/18 at 06:00 Multi-Ingredient Ointment (Analgesic [place]) 1 santosh PRN QID PRN TP muscle pain; Start 08/16/18 at 19:00 Olanzapine (ZyPREXA ZYDIS) 2.5 mg PRN Q2HR PRN PO ANXIETY / AGITATION; Start 08/16/18 at 19:00 Tramadol HCl (Ultram) 50 mg PRN Q8HRS PRN PO PAIN; Start 08/16/18 at 19:00 Aspirin (Children'S Aspirin) 81 mg DAILYWBKFT PO Last administered on at 09:59; Start 08/17/18 at 08:00 Non-Formulary Medication (Budesonide (Pulmicort)) 0.5 mg RTBID NEB ; Start at 20:00; Status UNV Cetirizine HCl (ZyrTEC) 10 mg PRN DAILY PRN PO ALLERGIES; Start 08/17/18 at 09 :00 Divalproex Sodium (Depakote Sprinkles) 500 mg QHS PO Last administered on 08/17at 19:40; Start 08/16/18 at 21:00; Stop 08/18/18 at 18:48; Status DC Gabapentin (Neurontin) 600 mg QHS PO Last administered on 08/20/18at 18:54; Start 08/16/18 at 21:00 Ipratropium [place] (Atrovent Nasal) 2 spray BID NS Last administered on at 07:55; Start 08/16/18 at 21:00; Stop 08/17/18 at 14:20; Status DC Concordia Carbonate 150 mg DAILY PO Last administered on 08/21/18 10:00; Start 08/17/18 at 09:00 Concord[place] Carbonate 300 mg QHS PO Last administered on 08/20/18 18:54; Start 08/16/18 at 21:00 Lorazepam (Ativan) 0.25 mg PRN QID PRN PO ANXIETY / AGITATION Last administered on 08/17/18 00:53; Start 08/16/18 at 20:15 Al Hydroxide/Mg Hydroxide (Mylanta Plus Xs) 30 ml PRN AFTMEALHC PRN PO DYSPEPSIA; Start 08/16/18 at 20:15 Magnesium Hydroxide (Milk Of Magnesia) 2,400 mg PRN QHS PRN PO CONSTIPATION; Start 08/16/18 at 20:15 Meclizine HCl (Antivert) 12.5 mg PRN TID PRN PO DIZZINESS; Start 08/16/18 at 20:15 Fish Oil (Fish Oil) 1,000 mg DAILY PO Last administered on 08/20/18 07:46; Start 08/17/18 at 09:00 Orphenadrine Citrate (Norflex Er) 100 mg PRN BID PRN PO MUSCLE SPASMS; Start 08/16/18 at 20:15 Polyethylene Glycol (miraLAX) 17 gm DAILY PO Last administered on 08/20/18 07 :46; Start 08/17/18 at 09:00 Quetiapine Fumarate (SEROquel) 25 mg QHS PO Last administered on 08/20/18 18: 54; Start 08/16/18 at 21:00 Risperidone (RisperDAL) 1 mg BID PO Last administered on 08/21/18 09:59; Start 08/16/18 at 21:00 Coenzyme Q10 (Coenzyme Q10) 100 mg DAILY PO Last administered on 08/20/18 07: 48; Start 08/17/18 at 09:00 Budesonide (Pulmicort) 0.5 mg RTBID NEB ; Start 08/17/18 at 08:00 Ipratropium [place] (Atrovent Nasal) 2 spray PRN BID PRN NS ALLERGIES; Start 08/17/18 at 14:30 Amoxicillin/ Clavulanate Potassium (Augmentin 500/ 125mg) 1 tab BID PO Last administered on 12/26/18at 09:59; Start 08/17/18 at 21:00; Stop 08/22/18 at 20 :59 Enoxaparin Sodium (Lovenox 60mg Syringe) 60 mg Q12HR SQ Last administered on at 09:40; Start 08/17/18 at 21:00; Stop 08/18/18 at 13:25; Status DC Iohexol (Omnipaque 300 Mg/ml) 75 ml 1X ONCE IV Last administered on at 11:57; Start 08/18/18 at 08:15; Stop 08/18/18 at 08:29; Status DC Apixaban (Eliquis) 10 mg BID PO Last administered on 08/18/18at 20:17; Start 08/18/18 at 21:00; Stop 08/18/18 at 22:41; Status DC Apixaban (Eliquis) 5 mg BID PO ; Start 08/26/18 at 09:00; Stop 08/26/18 at 09: 00; Status DC Divalproex Sodium (Depakote Sprinkles) 500 mg BID PO Last administered on 08/21at 09:59; Start 08/18/18 at 21:00 Enoxaparin Sodium (Lovenox 60mg Syringe) 60 mg Q12HR SQ ; Start 08/19/18 at 09: 00; Stop 08/19/18 at 09:00; Status DC Enoxaparin Sodium (Lovenox 60mg Syringe) 60 mg Q12HR SQ Last administered on at 10:01; Start 08/18/18 at 23:30 Info (Anti-Coagulation Monitoring By Pharmacy) 1 each PRN DAILY PRN MC SEE COMMENTS; Start 08/18/18 at 23:30 Active Scripts Active Cefdinir 300 Mg Capsule 1 Cap PO BID 5 Days Reported Risperidone 1 Mg Tablet 1 Mg PO BID Zyprexa Zydis (Olanzapine) 5 Mg Tab.rapdis 2.5 Mg PO PRN Q2HR PRN Analgesic [place] (Methyl Salicylate/Menthol) 28 Gm Oint...g. 1 Santosh TP PRN QID PRN Milk Of Magnesia (Magnesium Hydroxide) 2,400 Mg/10 Ml Oral.susp 2,400 Mg PO PRN QHS PRN [place] Liquid (Mag Hydrox/Al Hydrox/Simeth) 360 Ml Oral.susp 15 Ml PO PRN AFTMEALHC PRN Lorazepam 0.5 Mg Tablet 0.25 Mg PO PRN QID PRN [place] Carbonate 150 Mg Capsule 150 Mg PO DAILY Gabapentin 600 Mg Tablet 600 Mg PO QHS Depakote Sprinkle (Divalproex Sodium) 125 Mg Cap.sprink 500 Mg PO QHS Pulmicort (Budesonide) 0.5 Mg/2 Ml Ampul.neb 0.5 Mg NEB RTBID Albuterol Sulfate Neb Soln (Albuterol Sulfate) 2.5 Mg/3 Ml Vial.neb 2.5 Mg NEB RTQID Tylenol (Acetaminophen) 325 Mg Tablet 650 Mg PO PRN Q6HRS PRN [place] Carbonate 300 Mg Tablet 300 Mg PO HS Ipratropium [place] 30 Ml [place] 30 Ml NS BID Seroquel (Quetiapine Fumarate) 25 Mg Tablet 25 Mg PO QHS Tramadol Hcl (Tramadol HCl) 50 Mg Tablet 50 Mg PO PRN Q8HRS PRN Miralax (Polyethylene Glycol 3350) 17 Gm Powd.pack 1 Packet PO DAILY Orphenadrine Citrate 100 Mg Tablet.er 1 Tab PO PRN BID PRN Meclizine Hcl 25 Mg Tablet 12.5 Mg PO PRN TID PRN Levothyroxine Sodium 88 Mcg Tablet 88 Mcg PO DAILY06 Culturelle (Lactobacillus Rhamnosus Gg) 1 Each Cap.sprink 1 Each PO DAILY Mucinex (Guaifenesin) 600 Mg Tablet.er 1 Tab PO PRN BID PRN [place] 3 Fish Oil Softgel ([place]-3 Fatty Acids/Fish Oil) 1 Each Capsule.dr 1 Each PO DAILY PRN Ferrous Sulfate 325 Mg Tablet 325 Mg PO DAILY Coenzyme Q10 (Ubidecarenone) 100 Mg Capsule 100 Mg PO DAILY Vitamin D3 (Cholecalciferol (Vitamin D3)) 1,000 Unit Tablet 1 Tab PO DAILY Zyrtec (Cetirizine Hcl) 10 Mg Tablet 1 Tab PO PRN DAILY PRN Aspirin 81 Mg Tab.chew 81 Mg PO DAILY Ascorbic Acid 500 Mg Tablet 500 Mg PO DAILY I have reviewed the current psychotropics carefully including drug interactions. Risk benefit ratio favors no change other than as noted in my dictated progress note. Diagnosis: Problems: (1) Psychosis, atypical (2) Bipolar disorder (3) Impulse control disorder (4) Bipolar affective, mixed, sev w/ psych (5) Anxiety disorder ZOFIA INFANTE MD Aug 21, 2018 18:50
[2018-08-21] MEDS ORDERED: AMOX1TAB58 PO (19:31)
[2018-08-21] MEDS ORDERED: ENOX60DI SQ (19:33)
--- NOTE | 2018-08-21 19:43 | NUR ---
Transition Record was faxed to follow-up provider with the following elements: Reason for admission, procedures, tests, principal diagnosis, pending studies, patient instructions, 19/03 contact information for unit, phone number to obtain pending test results, plan for follow-up care, physician follow-up, advanced directive information, and medication list with dose, duration and instructions. This information was included in the following documents: History and physical, lab results, study results, progress notes, social work planning form, DC instruction form, patient visit summary, and medication reconciliation form. Date & time record faxed: 19:40 21 August 2018 [facility] Record discussed with/ report given to: JING Al on
--- NOTE | 2018-08-21 19:57 | NUR ---
Patient again refused treatment from RT. I was able to give a blow by treatment this morning and will attempt again tomorrow morning.
--- NOTE | 2018-08-22 02:47 | PN ---
DATE: 08/20/2018 This late entry, 08/20/2018, covers elements not covered in my initial note. SUBJECTIVE: I met with the patient in the evening. The patient slept 5-3/4 hours previous night. Earlier in the day, she had a vasovagal attack, but no falls or injuries were noted. She has been somewhat resistive to medications, remains somewhat hyperverbal. REVIEW OF SYSTEMS: Ambulation impaired, in Broda chair, difficulty with breathing, remains on oxygen supplements. No CV, GI, , eye system symptoms on review. MENTAL STATUS EXAM: Oriented to herself and situation. Speech coherent, rapid at times, fixated on discharge plans. Abstraction fair, computation impaired, language function intact, attention span short. Mood and affect remains labile. LABORATORY DATA: Reviewed. IMPRESSION: Bipolar 1 disorder, mixed with psychotic features. Rest unchanged. PLAN: Continue current psychotropics. Check a valproic acid level in the morning and then adjust to reach therapeutic level. Maintain lithium unchanged. MAN Nam INFANTE MD DR: CASTILLO/caleb JOB#: [id number] / [id number]
--- NOTE | 2018-08-23 09:08 | PDOC ---
Exam Note: Alessandro Note: DISCHARGE SUMMARY This is a late entry of 08/21/2018. This note covers elements not covered in my initial note. Reason for Admission: Please refer to my initial admission history for details. Briefly, the patient is a 77-year-old female referred to us from [facility] after she was medically stabilized by Dr. Ray for continued stabilization of her bipolar disorder. She has a long history of bipolar disorder treated on lithium and Depakote and additionally stabilized on Risperdal and Seroquel was added 25 mg p.o. h.s. [place] level was 0.8, on lithium carbonate 150 mg a.m. and 300 mg h.s., which was in addition of 150 mg to her original dosage 300 mg h.s. at which dosage her level was 0.6. Depakote Sprinkle was being adjusted on discharge and she was on 500 mg p.o. h.s. together with Ativan 0.25 mg q.i.d. p.r.n., Risperdal 1 mg b.i.d., Seroquel 25 mg h.s., Zyprexa p.r.n. It is recommended that the Seroquel 25 mg p.o. h.s. should be stopped in about two weeks once she is psychiatrically stable and thereafter decision could be made whether the Risperdal could be reduced as well. Nevertheless, she did appear to do much better on the above combination but was still hyperverbal, somewhat grandiose, but less paranoid. No suicidal or homicidal ideation prior to discharge. She was transferred back to [facility] Medical/Surgical Floor for further medical management of her acute kidney injury per Dr. Ray on 08/21/2018. ROS: Prior to discharge on 08/21/2018 ambulation impaired on Broda chair. No CV, , pulmonary, eye, ENT system symptoms on review. Reliability poor. MSE: Oriented to herself and situation. Speech coherent, rapid at times. Abstraction fair. Computation impaired. Language function intact. Attention span short. Mood and affect remains somewhat labile but improved. Labs: Reviewed. Final Diagnoses: Bipolar I disorder, mixed with psychotic features in partial remission. Anxiety disorder unspecified. Impulse control disorder unspecified. Acute kidney injury. Rest diagnoses unchanged from admission/ discharge medications. Please refer to the EMRAD. Psychiatric medical follow up on [facility]. Condition on Discharge: Psychiatrically, showing some improvement but medically more compromised. Please also refer to the separate dictated note~for this date of service dictated separately.~Patient seen individually. Discussed the patient with Nursing staff reviewed the chart.~Reviewed interim history and current functioning. Reviewed vital signs,~Labs/ Radiology~and current medications noted below. Continue current treatment with the changes noted in the dictated addendum note Assessment: Vital Signs: Vital Signs Date Time Temp Pulse Resp B/P (MAP) Pulse Ox O2 Delivery O2 Flow Rate FiO2 08/21/18 16:52 98.7 66 24 131/72 (91) 98 2.0 08/21/18 05:49 Nasal Cannula Current Medications: Meds: Current Medications Cefdinir (Omnicef) 300 mg BID PO Last administered on 08/17/18at 07:48; Start 08/16/18 at 21:00; Stop 08/17/18 at 16:47; Status DC Acetaminophen (Tylenol) 650 mg PRN Q6HRS PRN PO pain/temp; Start 08/16/18 at 19:00; Stop 08/21/18 at 19:41; Status DC Albuterol Sulfate (Ventolin) 2.5 mg RTQID NEB Last administered on 08/21/18at 05:27; Start 08/16/18 at 20:00; Stop 08/21/18 at 19:41; Status DC Ascorbic Acid (Vitamin C) 500 mg DAILY PO Last administered on 08/20/18at 07:47 ; Start 08/17/18 at 09:00; Stop 08/21/18 at 19:41; Status DC Cefdinir (Omnicef) 300 mg BID PO ; Start 08/16/18 at 21:00; Stop 08/16/18 at 21:00; Status DC Vitamin D (Vitamin D3) 1,000 unit DAILY PO Last administered on 08/20/18at 07: 47; Start 08/17/18 at 09:00; Stop 08/21/18 at 19:41; Status DC Ferrous Sulfate (Feosol) 325 mg DAILY PO Last administered on 08/20/18at 07:47 ; Start 08/17/18 at 09:00; Stop 08/21/18 at 19:41; Status DC Guaifenesin (Mucinex Er) 600 mg PRN BID PRN PO COUGH; Start 08/16/18 at 19:00 ; Stop 08/21/18 at 19:41; Status DC Lactobacillus Rhamnosus (Culturelle) 1 cap DAILY PO Last administered on at 07:49; Start 08/17/18 at 09:00; Stop 08/21/18 at 19:41; Status DC Levothyroxine Sodium (Synthroid) 88 mcg DAILY06 PO Last administered on at 06:12; Start 08/17/18 at 06:00; Stop 08/21/18 at 19:41; Status DC Multi-Ingredient Ointment (Analgesic [place]) 1 santosh PRN QID PRN TP muscle pain; Start 08/16/18 at 19:00; Stop 08/21/18 at 19:41; Status DC Olanzapine (ZyPREXA ZYDIS) 2.5 mg PRN Q2HR PRN PO ANXIETY / AGITATION; Start 08/16/18 at 19:00; Stop 08/21/18 at 19:41; Status DC Tramadol HCl (Ultram) 50 mg PRN Q8HRS PRN PO PAIN; Start 08/16/18 at 19:00; Stop 08/21/18 at 19:41; Status DC Aspirin (Children'S Aspirin) 81 mg DAILYWBKFT PO Last administered on at 09:59; Start 08/17/18 at 08:00; Stop 08/21/18 at 19:41; Status DC Non-Formulary Medication (Budesonide (Pulmicort)) 0.5 mg RTBID NEB ; Start at 20:00; Status UNV Cetirizine HCl (ZyrTEC) 10 mg PRN DAILY PRN PO ALLERGIES; Start 08/17/18 at 09 :00; Stop 08/21/18 at 19:41; Status DC Divalproex Sodium (Depakote Sprinkles) 500 mg QHS PO Last administered on 08/17at 19:40; Start 08/16/18 at 21:00; Stop 08/18/18 at 18:48; Status DC Gabapentin (Neurontin) 600 mg QHS PO Last administered on 08/20/18at 18:54; Start 08/16/18 at 21:00; Stop 08/21/18 at 19:41; Status DC Ipratropium [place] (Atrovent Nasal) 2 spray BID NS Last administered on at 07:55; Start 08/16/18 at 21:00; Stop 08/17/18 at 14:20; Status DC [place] Carbonate 150 mg DAILY PO Last administered on 08/21/18at 10:00; Start 08/17/18 at 09:00; Stop 08/21/18 at 19:41; Status DC [place] Carbonate 300 mg QHS PO Last administered on 08/20/18at 18:54; Start 08/16/18 at 21:00; Stop 08/21/18 at 19:41; Status DC Lorazepam (Ativan) 0.25 mg PRN QID PRN PO ANXIETY / AGITATION Last administered on 08/17/18at 00:53; Start 08/16/18 at 20:15; Stop 08/21/18 at 19 :41; Status DC Al Hydroxide/Mg Hydroxide (Mylanta Plus Xs) 30 ml PRN AFTMEALHC PRN PO DYSPEPSIA; Start 08/16/18 at 20:15; Stop 08/21/18 at 19:41; Status DC Magnesium Hydroxide (Milk Of Magnesia) 2,400 mg PRN QHS PRN PO CONSTIPATION; Start 08/16/18 at 20:15; Stop 08/21/18 at 19:41; Status DC Meclizine HCl (Antivert) 12.5 mg PRN TID PRN PO DIZZINESS; Start 08/16/18 at 20:15; Stop 08/21/18 at 19:41; Status DC Fish Oil (Fish Oil) 1,000 mg DAILY PO Last administered on 08/20/18at 07:46; Start 08/17/18 at 09:00; Stop 08/21/18 at 19:41; Status DC Orphenadrine Citrate (Norflex Er) 100 mg PRN BID PRN PO MUSCLE SPASMS; Start 08/16/18 at 20:15; Stop 08/21/18 at 19:41; Status DC Polyethylene Glycol (miraLAX) 17 gm DAILY PO Last administered on 08/20/18at 07 :46; Start 08/17/18 at 09:00; Stop 08/21/18 at 19:41; Status DC Quetiapine Fumarate (SEROquel) 25 mg QHS PO Last administered on 08/20/18at 18: 54; Start 08/16/18 at 21:00; Stop 08/21/18 at 19:41; Status DC Risperidone (RisperDAL) 1 mg BID PO Last administered on 08/21/18at 09:59; Start 08/16/18 at 21:00; Stop 08/21/18 at 19:41; Status DC Coenzyme Q10 (Coenzyme Q10) 100 mg DAILY PO Last administered on 08/20/18at 07: 48; Start 08/17/18 at 09:00; Stop 08/21/18 at 19:41; Status DC Budesonide (Pulmicort) 0.5 mg RTBID NEB ; Start 08/17/18 at 08:00; Stop at 19:41; Status DC Ipratropium [place] (Atrovent Nasal) 2 spray PRN BID PRN NS ALLERGIES; Start 08/17/18 at 14:30; Stop 08/21/18 at 19:41; Status DC Amoxicillin/ Clavulanate Potassium (Augmentin 500/ 125mg) 1 tab BID PO Last administered on 08/21/18at 09:59; Start 08/17/18 at 21:00; Stop 08/21/18 at 19 :41; Status DC Enoxaparin Sodium (Lovenox 60mg Syringe) 60 mg Q12HR SQ Last administered on at 09:40; Start 08/17/18 at 21:00; Stop 08/18/18 at 13:25; Status DC Iohexol (Omnipaque 300 Mg/ml) 75 ml 1X ONCE IV Last administered on at 11:57; Start 08/18/18 at 08:15; Stop 08/18/18 at 08:29; Status DC Apixaban (Eliquis) 10 mg BID PO Last administered on 08/18/18at 20:17; Start 08/18/18 at 21:00; Stop 08/18/18 at 22:41; Status DC Apixaban (Eliquis) 5 mg BID PO ; Start 08/26/18 at 09:00; Stop 08/26/18 at 09: 00; Status DC Divalproex Sodium (Depakote Sprinkles) 500 mg BID PO Last administered on 08/21at 09:59; Start 08/18/18 at 21:00; Stop 08/21/18 at 19:41; Status DC Enoxaparin Sodium (Lovenox 60mg Syringe) 60 mg Q12HR SQ ; Start 08/19/18 at 09: 00; Stop 08/19/18 at 09:00; Status DC Enoxaparin Sodium (Lovenox 60mg Syringe) 60 mg Q12HR SQ Last administered on at 10:01; Start 08/18/18 at 23:30; Stop 08/21/18 at 19:41; Status DC Info (Anti-Coagulation Monitoring By Pharmacy) 1 each PRN DAILY PRN MC SEE COMMENTS; Start 08/18/18 at 23:30; Stop 08/21/18 at 19:41; Status DC Active Scripts Active Cefdinir 300 Mg Capsule 1 Cap PO BID 5 Days Reported Lovenox (Enoxaparin Sodium) 60 Mg/0.6 Ml Disp.syrin 60 Mg SQ BID Augmentin 500-125 Tablet (Amoxicillin/Potassium Clav) 1 Each Tablet 1 Tab PO BID Risperidone 1 Mg Tablet 1 Mg PO BID Zyprexa Zydis (Olanzapine) 5 Mg Tab.rapdis 2.5 Mg PO PRN Q2HR PRN Analgesic [place] (Methyl Salicylate/Menthol) 28 Gm Oint...g. 1 Santosh TP PRN QID PRN Milk Of Magnesia (Magnesium Hydroxide) 2,400 Mg/10 Ml Oral.susp 2,400 Mg PO PRN QHS PRN [place] Liquid (Mag Hydrox/Al Hydrox/Simeth) 360 Ml Oral.susp 15 Ml PO PRN AFTMEALHC PRN Lorazepam 0.5 Mg Tablet 0.25 Mg PO PRN QID PRN [place] Carbonate 150 Mg Capsule 150 Mg PO DAILY Gabapentin 600 Mg Tablet 600 Mg PO QHS Depakote Sprinkle (Divalproex Sodium) 125 Mg Cap.sprink 500 Mg PO BID Pulmicort (Budesonide) 0.5 Mg/2 Ml Ampul.neb 0.5 Mg NEB RTBID Albuterol Sulfate Neb Soln (Albuterol Sulfate) 2.5 Mg/3 Ml Vial.neb 2.5 Mg NEB RTQID Tylenol (Acetaminophen) 325 Mg Tablet 650 Mg PO PRN Q6HRS PRN [place] Carbonate 300 Mg Tablet 300 Mg PO HS Ipratropium [place] 30 Ml [place] 30 Ml NS BID Seroquel (Quetiapine Fumarate) 25 Mg Tablet 25 Mg PO QHS Tramadol Hcl (Tramadol HCl) 50 Mg Tablet 50 Mg PO PRN Q8HRS PRN Miralax (Polyethylene Glycol 3350) 17 Gm Powd.pack 1 Packet PO DAILY Orphenadrine Citrate 100 Mg Tablet.er 1 Tab PO PRN BID PRN Meclizine Hcl 25 Mg Tablet 12.5 Mg PO PRN TID PRN Levothyroxine Sodium 88 Mcg Tablet 88 Mcg PO DAILY06 Culturelle (Lactobacillus Rhamnosus Gg) 1 Each Cap.sprink 1 Each PO DAILY Mucinex (Guaifenesin) 600 Mg Tablet.er 1 Tab PO PRN BID PRN [place] 3 Fish Oil Softgel (Holmes-3 Fatty Acids/Fish Oil) 1 Each Capsule.dr 1 Each PO DAILY Ferrous Sulfate 325 Mg Tablet 325 Mg PO DAILY Coenzyme Q10 (Ubidecarenone) 100 Mg Capsule 100 Mg PO DAILY Vitamin D3 (Cholecalciferol (Vitamin D3)) 1,000 Unit Tablet 1 Tab PO DAILY Zyrtec (Cetirizine Hcl) 10 Mg Tablet 1 Tab PO PRN DAILY PRN Aspirin 81 Mg Tab.chew 81 Mg PO DAILY Ascorbic Acid 500 Mg Tablet 500 Mg PO DAILY I have reviewed the current psychotropics carefully including drug interactions. Risk benefit ratio favors no change other than as noted in my dictated progress note. 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
[2018-08-26] MEDS ORDERED: APIXABAN 5 MG TABLET. PO SCH (09:00)
== END 2018-08-21 19:40 | disposition short-term general hospital (02) | DRG 885 ==
LOC: GEROPSY 18:14
PROVIDERS: ADMIT Psychiatry & Neurology Psychiatry; ATTEND Psychiatry & Neurology Psychiatry
DX: F31.64 Bipolar disorder, current episode mixed, severe, with psychotic features (principal); E43 Unspecified severe protein-calorie malnutrition; A41.9 Sepsis, unspecified organism; I13.0 Hypertensive heart and chronic kidney disease with heart failure and stage 1 through stage 4 chronic kidney disease, or unspecified chronic kidney disease; N39.0 Urinary tract infection, site not specified; M19.90 Unspecified osteoarthritis, unspecified site; G89.29 Other chronic pain; G62.9 Polyneuropathy, unspecified; E78.5 Hyperlipidemia, unspecified; E03.9 Hypothyroidism, unspecified; E86.0 Dehydration; F09 Unspecified mental disorder due to known physiological condition; F41.9 Anxiety disorder, unspecified; F63.9 Impulse disorder, unspecified; G25.81 Restless legs syndrome; J45.909 Unspecified asthma, uncomplicated; M79.7 Fibromyalgia; N18.3 Chronic kidney disease, stage 3 (moderate); I50.9 Heart failure, unspecified; Z68.21 Body mass index [BMI] 21.0-21.9, adult; Z87.440 Personal history of urinary (tract) infections; Z85.118 Personal history of other malignant neoplasm of bronchus and lung; Z79.899 Other long term (current) drug therapy
CPT/HCPCS: 36415; 71045; 71275; 80053; 80164; 80178; 85025; 85379; 93970; 94640; J1650; J7613; Q9967

== ENCOUNTER 2018-08-21 20:10 | Inpatient (IN) | payer BC ==
[~2018-08-21] VITALS: Ht 162.6 cm; Wt 58.1 kg
[2018-08-21 20:10] VITALS: BP 106/58
[~2018-08-21 20:10] MED LIST changes: +AMOX1TAB58 PO; +ENOX60DI SQ
[2018-08-21] MEDS ORDERED: METHYL SALICYLATE/MENTHOL TOPICAL OINTMENT 29GM TUBE. TP PRN (23:15)
[2018-08-21] MEDS ORDERED: ACETAMINOPHEN 325 MG TABLET PO PRN (23:15)
[2018-08-21] MEDS ORDERED: traMADol 50 MG TABLET PO PRN (23:15)
--- NOTE | 2018-08-21 23:36 | NUR ---
The patient, EDILBERTO STARK, 77 y/o, F admitted by JOSE ALEJANDRO OWUSU MD, was given written information regarding hospital policies, unit procedures and contact persons. Valuables are in the safe as per prior admission to [facility]. PT was oriented to unit. PT admitted from [facility] for multiple syncopal episodes today.
[2018-08-21] MEDS ORDERED: MAG HYDROX/AL HYDROX/SIMETH 30 ML ORAL.SUSP PO PRN (23:45)
[2018-08-21] MEDS ORDERED: LORazepam 0.5 MG TABLET PO PRN (23:45)
[2018-08-21] MEDS ORDERED: MECLIZINE 12.5 MG TABLET. PO PRN (23:45)
[2018-08-21] MEDS ORDERED: ANTI-COAG MONITOR BY PHARMACY. MC PRN (23:45)
[2018-08-21] MEDS ORDERED: ORPHENADRINE ER 100 MG TABLET.ER PO PRN (23:45)
[2018-08-21] MEDS ORDERED: MAGNESIUM HYDROXIDE 2,400 MG/30 ML ORAL.SUSP. PO PRN (23:45)
[2018-08-22 00:33] VITALS: BP 106/57
[2018-08-22] MEDS ORDERED: ALBUTEROL SULFATE 2.5 MG/3 ML NEBU. ONE (05:45)
[2018-08-22] MEDS: ALBUTEROL SULFATE 2.5 MG/3 ML NEBU. NEB SCH ×3 (05:48→16:29)
[2018-08-22 05:54] VITALS: BP 93/49
[2018-08-22] MEDS ORDERED: LEVOTHYROXINE 88 MCG TABLET PO SCH (06:00)
[2018-08-22 07:30] LABS: HEMATOCRIT 22.9 % (36.0-47.0); HEMOGLOBIN 7.3 g/dL (12.0-15.5); RED BLOOD COUNT 2.35 x10^6/uL (3.50-5.40); RED CELL DISTRIBUTION WIDTH 14.4 % (11.5-14.5); WHITE BLOOD COUNT 9.7 x10^3/uL (4.0-11.0)
[2018-08-22 07:47] LABS: ALBUMIN/GLOBULIN RATIO 0.6 (1.0-1.7); CALCIUM 8.5 mg/dL (8.5-10.1); GFR 53.8; POTASSIUM 4.9 mmol/L (3.5-5.1); TOTAL BILIRUBIN 0.2 mg/dL (0.2-1.0); TOTAL PROTEIN 5.6 g/dL (6.4-8.2)
[2018-08-22] MEDS ORDERED: ASPIRIN 81 MG TAB.CHEW PO SCH (08:00)
[2018-08-22] MEDS ORDERED: BUDESONIDE 0.5 MG/2 ML NEBU NEB SCH (08:00)
[2018-08-22] MEDS ORDERED: ASCORBIC ACID 500 MG TABLET PO SCH (09:00)
[2018-08-22] MEDS ORDERED: LACTOBACILLUS RHAMNOSUS GG 1 CAPSULE. PO SCH (09:00)
[2018-08-22] MEDS ORDERED: LITHIUM CARBONATE 300 MG TABLET PO SCH ×2 (09:00→21:00)
[2018-08-22] MEDS ORDERED: DIVALPROEX 125 MG CAP.SPRINK PO SCH (09:00)
[2018-08-22] MEDS ORDERED: POLYETHYLENE GLYCOL 3350 17 GM PACKET. PO SCH (09:00)
[2018-08-22] MEDS ORDERED: AMOXICILLIN/K CLAV 500/125MG TABLET. PO SCH (09:00)
[2018-08-22] MEDS ORDERED: IPRATROPIUM BROMIDE 0.06% NASAL SPRAY 15ML BOTTLE NS SCH (09:00)
[2018-08-22] MEDS ORDERED: risperiDONE 1 MG TABLET. PO SCH (09:00)
[2018-08-22] MEDS ORDERED: OMEGA-3 FATTY ACIDS/FISH OIL 1,000 MG CAPSULE. PO SCH (09:00)
[2018-08-22] MEDS ORDERED: CETIRIZINE HCL 10 MG TABLET PO PRN (09:00)
[2018-08-22] MEDS ORDERED: ENOXAPARIN ** NOTE DOSE ** SYRINGE SQ SCH (09:00)
[2018-08-22] MEDS ORDERED: FERROUS SULFATE 325 MG TABLET. PO SCH (09:00)
[2018-08-22] MEDS ORDERED: CHOLECALCIFEROL (VITAMIN D3) 1,000 UNIT TABLET PO SCH (09:00)
[2018-08-22] MEDS ORDERED: UBIDECARENONE 50 MG CAPSULE. PO SCH (09:00)
[2018-08-22 10:54] VITALS: BP 101/55
[2018-08-22 14:38] VITALS: BP 107/61
--- NOTE | 2018-08-22 17:32 | NUR ---
NSG NOTE; TRANSFER REPORT CALLED TO MONIKA CH. PAPER COPY OF CHART SENT WITH PT TRANSFER TO [facility] AT [address] ACCOMP BY EMS PERSONNEL HERE AND PLANS TO FOLLOW AMBULANCE
[2018-08-22] MEDS ORDERED: QUEtiapine 25 MG TABLET. PO SCH (21:00)
[2018-08-22] MEDS ORDERED: GABAPENTIN 300 MG CAPSULE. PO SCH (21:00)
--- NOTE | 2018-09-05 13:13 | SSS ---
ADMIT DATE: HISTORY OF PRESENT ILLNESS: The patient is a 77-year-old female patient who was transferred from [facility] as she has had multiple syncopal episodes. She was diagnosed with pulmonary embolism and was started on Eliquis and unfortunately she has been consistently refusing to take her medication and was started on Lovenox 1 mg/kg subcutaneously twice a day and unfortunately, the nursing staff stated that she has had about 3 syncopal episodes and also hemoglobin and hematocrit are dropping and therefore, the patient was transferred to [address] [place] [address] for further evaluation and talk to her family as she probably will need an inferior vena cava filter placed. PHYSICAL EXAMINATION: GENERAL: On the day of admission, she looked pale, cachectic, but no jaundice, cyanosis, or thyromegaly. No jugular venous distension. No limb edema. VITAL SIGNS: Her heart rate was 71, blood pressure was 101/55, temperature was 97.8, respiratory rate 20, and oxygen saturation was 93% on 1 liter of oxygen. HEAD, EYES, EARS, NOSE AND THROAT: Showed normocephalic, atraumatic. NECK: Supple. HEART: Showed normal first and second heart sounds. No gallop or murmur. CHEST: Clear to auscultation. No crepitation or rhonchi. ABDOMEN: Scaphoid, soft, nontender. NEUROLOGIC: She was awake, alert, but very paranoid and manic. All her cranial nerves are intact. EXTREMITIES: She moves extremities without difficulty. LABORATORY DATA: Her lab work showed a white cell count 9700, hemoglobin 7.3, hematocrit 22.9, MCV 97 and platelet count of 113,000. Her serum sodium was 141, potassium 4.9, chloride 106, bicarbonate 32, anion gap of 3, BUN 24, creatinine 1, estimated GFR was 54 mL per minute. His glucose was 89, calcium was 8.5. Total bilirubin, AST, ALT, alkaline phosphatase were normal. Total protein was 5.6, albumin 2. ASSESSMENT AND PLAN: Given that the patient has known pulmonary embolism and she has had multiple syncopal episodes and she is refusing to take her oral anticoagulant. When we started her on Lovenox, her H and H has dropped. I have had a lengthy discussion with her and her daughter and a decision was made to transfer her to [facility] to consult interventional radiologist to place an inferior vena cava filter and also consult the Gastroenterology team as she is probably bleeding. Given that her H and H has dropped from 9 and 27, down to 7 and 21. Other medical problems include lung cancer, status post left upper lobectomy, chronic obstructive pulmonary disease, hypothyroidism, ulcerative colitis, osteoarthritis, hypertension, hyperlipidemia, restless leg syndrome and headache. JOSE ALEJANDRO OWUSU MD DR: DEVON/caleb JOB#: [id number] / [id number]
== END 2018-08-22 17:05 | disposition short-term general hospital (02) | DRG 175 ==
LOC: 1 SOUTH 20:10
PROVIDERS: ADMIT Internal Medicine; ATTEND Internal Medicine
DX: I26.99 Other pulmonary embolism without acute cor pulmonale (principal); E43 Unspecified severe protein-calorie malnutrition; C34.90 Malignant neoplasm of unspecified part of unspecified bronchus or lung; K51.90 Ulcerative colitis, unspecified, without complications; R64 Cachexia; E03.9 Hypothyroidism, unspecified; E78.5 Hyperlipidemia, unspecified; G25.81 Restless legs syndrome; I10 Essential (primary) hypertension; M19.90 Unspecified osteoarthritis, unspecified site; J44.9 Chronic obstructive pulmonary disease, unspecified; Z90.2 Acquired absence of lung [part of]; Z88.6 Allergy status to analgesic agent; Z88.1 Allergy status to other antibiotic agents; Z88.2 Allergy status to sulfonamides; Z88.8 Allergy status to other drugs, medicaments and biological substances; Z68.22 Body mass index [BMI] 22.0-22.9, adult
CPT/HCPCS: 36415; 80053; 85027; 87641; 94640; J1650; J7613; J7626